=== PATIENT | female | born 1940 | race Caucasian/White ===

== ENCOUNTER 2017-06-04 14:02 | Inpatient (IN) | payer OTHER ==
[2017-06-04] MEDS: morphine 2 MG INJ IV (17:55)
[2017-06-04] MEDS: ONDANSETRON 4 MG INJ IV (17:55)
[2017-06-04 18:07] LABS: ADD MAN DIFF? NO
[2017-06-04 18:10] LABS: BASOPHILS % 0.2 % (0.0-2.0); HEMATOCRIT 36.9 % (37.0-47.0); HEMOGLOBIN 12.5 g/dl (12.0-16.0); LYMPHOCYTES # 1.1 10^3/ul (0.8-2.9); LYMPHOCYTES % 17.9 % (15.0-51.0); MEAN CORPUSCULAR HEMOGLOBIN 34.2 pg (29.0-33.0); MEAN CORPUSCULAR HGB CONC 33.9 g/dl (32.0-37.0); MEAN CORPUSCULAR VOLUME 100.8 fl (82.0-101.0); MONOCYTE # 0.3 10^3/ul (0.3-0.9); MONOCYTES % 5.6 % (0.0-11.0); NEUTROPHIL # 4.6 10^3/ul (1.6-7.5); NEUTROPHILS % 75.8 % (39.0-77.0); PLATELET COUNT 225 10^3/UL (140-415); RED BLOOD COUNT 3.66 10^6/ul (4.20-5.40); RED CELL DISTRIBUTION WIDTH 12.5 % (11.5-14.5)
[2017-06-04 18:38] LABS: ALANINE AMINOTRANSFERASE 17 IU/L (13-69); ALBUMIN/GLOBULIN RATIO 1.31; ALKALINE PHOSPHATASE 118 IU/L (42-121); ANION GAP 19 (8-16); ASPARTATE AMINO TRANSFERASE 19 IU/L (15-46); BLOOD UREA NITROGEN 31 mg/dl (7-20); CALCIUM 9.9 mg/dl (8.4-10.2); CARBON DIOXIDE 18 mmol/L (21-31); CHLORIDE 113 mmol/L (97-110); CREATININE 1.24 mg/dl (0.44-1.00); GLUCOSE 149 mg/dl (70-220); LIPASE 64 U/L (23-300); SODIUM 143 mmol/L (135-144); TOTAL PROTEIN 8.8 g/dl (6.1-8.1)
[2017-06-04 18:53] LABS: POTASSIUM 6.5 mmol/L (3.5-5.1)
[2017-06-04] MEDS: hydrALAzine 20 MG INJ IV ×2 (19:02→20:01)
[2017-06-04 19:13] LABS: URINE PH (Dip) POC 5.5 (5.0-8.5)
[2017-06-04 19:13] LABS: URINE BLOOD (Dip) POC Negative (NEGATIVE); URINE GLUCOSE (Dip) POC Negative (NEGATIVE); URINE KETONES (Dip) POC Negative (NEGATIVE); URINE LEUKOCYTE EST (Dip) POC Negative (NEGATIVE); URINE NITRITE (Dip) POC Negative (NEGATIVE); URINE TOTAL PROTEIN POC 3+ (NEGATIVE)
[2017-06-04] MEDS: ALBUTEROL 0.5% (NEB) 2.5 MG/0.5 ML AMP INH (19:50)
[2017-06-04] MEDS: NA POLYST SULFON 15 GM/60 ML BTL PO ×2 (20:14→23:00)
[2017-06-04] MEDS: INSULIN REGULAR, HUMAN 100 UNIT/1 ML 3ML VIAL IVP (20:21)
[2017-06-04] MEDS: DEXTROSE 50% 50 ML SYRINGE IV (20:32)
[2017-06-04 21:26] LABS: ANION GAP 18 (8-16); BLOOD UREA NITROGEN 28 mg/dl (7-20); CALCIUM 9.4 mg/dl (8.4-10.2); CARBON DIOXIDE 16 mmol/L (21-31); CHLORIDE 110 mmol/L (97-110); CREATININE 1.15 mg/dl (0.44-1.00); POTASSIUM 5.7 mmol/L (3.5-5.1); SODIUM 138 mmol/L (135-144)
[2017-06-04] MEDS: AMLODIPINE 10 MG TAB PO (21:28)
[2017-06-04] MEDS: NIFEdipine (XL) 30 MG TAB PO (21:28)
[2017-06-04 21:32] LABS: GLUCOSE 494 mg/dl (70-220)
[2017-06-04] MEDS ORDERED: ONDANSETRON 4 MG INJ IV (22:00)
[2017-06-04] MEDS ORDERED: BISACODYL (EC) 5 MG TAB PO (22:00)
[2017-06-04] MEDS ORDERED: NACL 0.9% 3 ML SYG IV (22:00)
[2017-06-04] MEDS: INSULIN REGULAR, HUMAN 100 UNIT/1 ML 3ML VIAL IV (22:00)
[2017-06-04] MEDS: GABAPENTIN 300 MG CAP PO (22:26)
[2017-06-04] MEDS: LABETALOL HCL 20MG INJ IV (22:26)
[2017-06-04] MEDS ORDERED: GLUCAGON 1 MG INJ IM (22:30)
[2017-06-04] MEDS ORDERED: DEXTROSE 50% 50 ML SYRINGE IV ×2 (22:30)
[2017-06-04] MEDS ORDERED: GLUCOSE GEL 15 GRAM TUBE PO ×2 (22:30)
[2017-06-04] MEDS ORDERED: GLUCOSE GEL 15 GRAM TUBE BUCCAL (22:30)
[2017-06-04] MEDS: SOD CHLORIDE 0.9% 500 ML IV (23:00)
[2017-06-05] MEDS: ACCU-CHEK XX (01:48)
[2017-06-05] MEDS: morphine 2 MG INJ IV (02:19)
[2017-06-05] MEDS: hydrALAzine 20 MG INJ IV ×2 (03:08→05:59)
[2017-06-05] MEDS: PANTOPRAZOLE (EC) 40 MG TAB PO (05:59)
[2017-06-05 06:55] LABS: ADD MAN DIFF? NO
[2017-06-05 07:01] LABS: BASOPHILS % 0.2 % (0.0-2.0); EOSINOPHILS % 0.4 % (0.0-7.0); HEMATOCRIT 32.6 % (37.0-47.0); LYMPHOCYTES # 1.3 10^3/ul (0.8-2.9); LYMPHOCYTES % 12.5 % (15.0-51.0); MEAN CORPUSCULAR HEMOGLOBIN 34.2 pg (29.0-33.0); MEAN CORPUSCULAR HGB CONC 33.7 g/dl (32.0-37.0); MEAN CORPUSCULAR VOLUME 101.2 fl (82.0-101.0); MONOCYTE # 0.9 10^3/ul (0.3-0.9); MONOCYTES % 9.2 % (0.0-11.0); NEUTROPHIL # 7.9 10^3/ul (1.6-7.5); NEUTROPHILS % 77.3 % (39.0-77.0); PLATELET COUNT 197 10^3/UL (140-415); RED BLOOD COUNT 3.22 10^6/ul (4.20-5.40); RED CELL DISTRIBUTION WIDTH 12.8 % (11.5-14.5)
[2017-06-05 07:01] LABS: WHITE BLOOD COUNT 10.2 10^3/ul (4.8-10.8)
[2017-06-05 07:17] LABS: ALANINE AMINOTRANSFERASE 16 IU/L (13-69); ALBUMIN 4.2 g/dl (3.3-4.9); ALBUMIN/GLOBULIN RATIO 1.27; ALKALINE PHOSPHATASE 96 IU/L (42-121); ANION GAP 18 (8-16); ASPARTATE AMINO TRANSFERASE 18 IU/L (15-46); BLOOD UREA NITROGEN 25 mg/dl (7-20); CALCIUM 9.1 mg/dl (8.4-10.2); CARBON DIOXIDE 17 mmol/L (21-31); CHLORIDE 116 mmol/L (97-110); CHOL/HDL RATIO 2.7 RATIO; CHOLESTEROL 176 mg/dl (100-200); CREATININE 1.16 mg/dl (0.44-1.00); GLUCOSE 117 mg/dl (70-220); HDL CHOLESTEROL 63 mg/dl (33-92); LDL CHOLESTEROL,CALCULATED 82 mg/dl; MAGNESIUM 1.6 mg/dl (1.7-2.5); POTASSIUM 4.6 mmol/L (3.5-5.1); SODIUM 146 mmol/L (135-144); TOTAL PROTEIN 7.5 g/dl (6.1-8.1); TRIGLYCERIDES 153 mg/dl (0-149)
[2017-06-05] MEDS: ACETAMINOPHEN 325 MG TAB PO (07:57)
[2017-06-05] MEDS: INSULIN ASPART [NOVOLOG] 3 ML PEN SC ×4 (08:00→20:23)
[2017-06-05] MEDS: GABAPENTIN 300 MG CAP PO ×2 (08:04→20:14)
[2017-06-05] MEDS: ESCITALOPRAM 10 MG TAB PO (08:14)
[2017-06-05] MEDS: AMLODIPINE 10 MG TAB PO (08:14)
[2017-06-05 08:40] LABS: HEMOGLOBIN A1C 5.1 % (0-5.9)
[2017-06-05 09:19] LABS: ETHANOL < 10.0 mg/dl
[2017-06-05] MEDS ORDERED: LABETALOL HCL 20MG INJ IV (09:30)
[2017-06-05] MEDS: MAGNESIUM SULFATE 2 GM/50 ML 50 ML IVPB (09:34)
[2017-06-05 11:30] LABS: URIC ACID 3.4 mg/dl (3.1-7.9)
[2017-06-05] MEDS: SERTRALINE 50 MG TAB PO (12:40)
[2017-06-05] MEDS: SOD CHLORIDE 0.45% 1,000 ML IV (12:41)
[2017-06-05] MEDS: HYDROCODONE/APAP (5/325) TAB PO ×2 (12:52→20:15)
[2017-06-05] MEDS: ATORVASTATIN 10 MG TAB PO (20:14)
[2017-06-06] MEDS: ACCU-CHEK XX (02:00)
[2017-06-06] MEDS: SOD CHLORIDE 0.45% 1,000 ML IV ×2 (03:34→11:54)
[2017-06-06] MEDS: PANTOPRAZOLE (EC) 40 MG TAB PO (06:23)
[2017-06-06] MEDS: HYDROCODONE/APAP (5/325) TAB PO ×5 (06:23→23:19)
[2017-06-06 06:55] LABS: ADD MAN DIFF? NO
[2017-06-06 07:00] LABS: BASOPHILS % 0.4 % (0.0-2.0); EOSINOPHILS # 0.1 10^3/ul (0.0-0.5); EOSINOPHILS % 2.1 % (0.0-7.0); HEMATOCRIT 30.3 % (37.0-47.0); HEMOGLOBIN 10.1 g/dl (12.0-16.0); LYMPHOCYTES # 1.8 10^3/ul (0.8-2.9); LYMPHOCYTES % 36.6 % (15.0-51.0); MEAN CORPUSCULAR HEMOGLOBIN 33.7 pg (29.0-33.0); MEAN CORPUSCULAR HGB CONC 33.3 g/dl (32.0-37.0); MEAN PLATELET VOLUME 9.3 fl (7.4-10.4); MONOCYTE # 0.5 10^3/ul (0.3-0.9); MONOCYTES % 9.9 % (0.0-11.0); NEUTROPHIL # 2.5 10^3/ul (1.6-7.5); NEUTROPHILS % 50.8 % (39.0-77.0); PLATELET COUNT 190 10^3/UL (140-415); RED CELL DISTRIBUTION WIDTH 12.8 % (11.5-14.5)
[2017-06-06 07:00] LABS: WHITE BLOOD COUNT 4.9 10^3/ul (4.8-10.8)
[2017-06-06 07:24] LABS: ALANINE AMINOTRANSFERASE 22 IU/L (13-69); ALBUMIN 3.4 g/dl (3.3-4.9); ALBUMIN/GLOBULIN RATIO 1.03; ALKALINE PHOSPHATASE 85 IU/L (42-121); ANION GAP 15 (8-16); ASPARTATE AMINO TRANSFERASE 16 IU/L (15-46); BILIRUBIN,INDIRECT 0.2 mg/dl (0-1.1); BILIRUBIN,TOTAL 0.2 mg/dl (0.2-1.3); BLOOD UREA NITROGEN 34 mg/dl (7-20); CALCIUM 8.6 mg/dl (8.4-10.2); CARBON DIOXIDE 19 mmol/L (21-31); CHLORIDE 113 mmol/L (97-110); CREATININE 1.53 mg/dl (0.44-1.00); GLUCOSE 100 mg/dl (70-220); MAGNESIUM 2.1 mg/dl (1.7-2.5); PHOSPHORUS 4.7 mg/dl (2.5-4.9); POTASSIUM 4.7 mmol/L (3.5-5.1); SODIUM 142 mmol/L (135-144); TOTAL PROTEIN 6.7 g/dl (6.1-8.1)
[2017-06-06] MEDS: INSULIN ASPART [NOVOLOG] 3 ML PEN SC ×4 (08:00→20:20)
[2017-06-06] MEDS: GABAPENTIN 300 MG CAP PO ×2 (08:20→20:17)
[2017-06-06] MEDS: ESCITALOPRAM 10 MG TAB PO (08:21)
[2017-06-06] MEDS: AMLODIPINE 10 MG TAB PO (08:21)
[2017-06-06] MEDS: ALLOPURINOL 100 MG TAB PO (08:21)
[2017-06-06] MEDS: SERTRALINE 50 MG TAB PO (08:21)
[2017-06-06 10:45] LABS: IRON 87 ug/dl (35-150)
[2017-06-06 10:55] LABS: % IRON SATURATION 44 % SAT (22-52); TOTAL IRON BINDING CAPACITY 200 ug/dl (241-421)
[2017-06-06 11:22] LABS: FERRITIN 97.2 ng/ml (11.1-264.0)
[2017-06-06] MEDS: DILTIAZEM (CD) 120 MG CAP PO (12:44)
[2017-06-06 15:08] LABS: PROTEIN/CREAT RATIO 2.41 RATIO
[2017-06-06 15:09] LABS: AMPHETAMINE/METHAMPHETAMINE Negative (NEGATIVE); BARBITURATES Negative (NEGATIVE); BENZODIAZEPINES Negative (NEGATIVE); CANNABINOIDS Negative (NEGATIVE); COCAINE Negative (NEGATIVE); OPIATES Positive (NEGATIVE)
[2017-06-06 18:12] LABS: PTH CALCIUM 8.9 mg/dL (8.6-10.4)
[2017-06-06] MEDS: ATORVASTATIN 10 MG TAB PO (20:17)
[2017-06-07] MEDS: ACCU-CHEK XX (02:00)
[2017-06-07] MEDS: HYDROCODONE/APAP (5/325) TAB PO ×3 (05:36→13:42)
[2017-06-07] MEDS: PANTOPRAZOLE (EC) 40 MG TAB PO (05:36)
[2017-06-07 06:52] LABS: PTH INTACT 109 pg/mL (14-64)
[2017-06-07 07:51] LABS: ADD MAN DIFF? NO
[2017-06-07 07:56] LABS: BASOPHILS % 0.4 % (0.0-2.0); EOSINOPHILS # 0.1 10^3/ul (0.0-0.5); EOSINOPHILS % 2.6 % (0.0-7.0); HEMATOCRIT 28.9 % (37.0-47.0); HEMOGLOBIN 9.6 g/dl (12.0-16.0); LYMPHOCYTES # 1.8 10^3/ul (0.8-2.9); LYMPHOCYTES % 33.3 % (15.0-51.0); MEAN CORPUSCULAR HEMOGLOBIN 33.8 pg (29.0-33.0); MEAN CORPUSCULAR HGB CONC 33.2 g/dl (32.0-37.0); MEAN CORPUSCULAR VOLUME 101.8 fl (82.0-101.0); MEAN PLATELET VOLUME 9.7 fl (7.4-10.4); MONOCYTE # 0.6 10^3/ul (0.3-0.9); MONOCYTES % 10.4 % (0.0-11.0); NEUTROPHIL # 2.8 10^3/ul (1.6-7.5); NEUTROPHILS % 52.9 % (39.0-77.0); PLATELET COUNT 192 10^3/UL (140-415); RED BLOOD COUNT 2.84 10^6/ul (4.20-5.40); RED CELL DISTRIBUTION WIDTH 12.6 % (11.5-14.5)
[2017-06-07 07:56] LABS: WHITE BLOOD COUNT 5.3 10^3/ul (4.8-10.8)
[2017-06-07] MEDS: INSULIN ASPART [NOVOLOG] 3 ML PEN SC ×4 (08:00→19:47)
[2017-06-07 08:18] LABS: ALANINE AMINOTRANSFERASE 30 IU/L (13-69); ALBUMIN 3.7 g/dl (3.3-4.9); ALBUMIN/GLOBULIN RATIO 1.27; ALKALINE PHOSPHATASE 91 IU/L (42-121); ANION GAP 14 (8-16); ASPARTATE AMINO TRANSFERASE 38 IU/L (15-46); BLOOD UREA NITROGEN 44 mg/dl (7-20); CALCIUM 8.9 mg/dl (8.4-10.2); CARBON DIOXIDE 20 mmol/L (21-31); CHLORIDE 114 mmol/L (97-110); GLUCOSE 115 mg/dl (70-220); POTASSIUM 5.4 mmol/L (3.5-5.1); SODIUM 143 mmol/L (135-144); TOTAL PROTEIN 6.6 g/dl (6.1-8.1)
[2017-06-07] MEDS: GABAPENTIN 300 MG CAP PO ×2 (09:32→19:41)
[2017-06-07] MEDS: DILTIAZEM (CD) 120 MG CAP PO (09:33)
[2017-06-07] MEDS: AMLODIPINE 10 MG TAB PO (09:33)
[2017-06-07] MEDS: ESCITALOPRAM 10 MG TAB PO (09:34)
[2017-06-07] MEDS: ALLOPURINOL 100 MG TAB PO (09:34)
[2017-06-07] MEDS: SERTRALINE 50 MG TAB PO (09:35)
[2017-06-07] MEDS: NA POLYST SULFON 15 GM/60 ML BTL PO (13:41)
[2017-06-07] MEDS: LIDOCAINE 5% PATCH TD (17:50)
[2017-06-07] MEDS: EPOETIN 10000 UNITS/1 ML INJ (ESRD) SC (17:52)
[2017-06-07] MEDS: ATORVASTATIN 10 MG TAB PO (19:41)
[2017-06-08] MEDS: hydrALAzine 20 MG INJ IV ×2 (00:26→04:45)
[2017-06-08] MEDS: ACCU-CHEK XX (00:29)
[2017-06-08] MEDS: PANTOPRAZOLE (EC) 40 MG TAB PO (04:46)
[2017-06-08 06:40] LABS: ADD MAN DIFF? NO
[2017-06-08 06:45] LABS: BASOPHILS % 0.3 % (0.0-2.0); EOSINOPHILS # 0.1 10^3/ul (0.0-0.5); EOSINOPHILS % 1.8 % (0.0-7.0); HEMATOCRIT 27.5 % (37.0-47.0); HEMOGLOBIN 9.4 g/dl (12.0-16.0); LYMPHOCYTES # 1.5 10^3/ul (0.8-2.9); LYMPHOCYTES % 25.5 % (15.0-51.0); MEAN CORPUSCULAR HEMOGLOBIN 34.3 pg (29.0-33.0); MEAN CORPUSCULAR HGB CONC 34.2 g/dl (32.0-37.0); MEAN CORPUSCULAR VOLUME 100.4 fl (82.0-101.0); MEAN PLATELET VOLUME 9.4 fl (7.4-10.4); MONOCYTE # 0.5 10^3/ul (0.3-0.9); MONOCYTES % 8.8 % (0.0-11.0); NEUTROPHIL # 3.8 10^3/ul (1.6-7.5); NEUTROPHILS % 63.3 % (39.0-77.0); PLATELET COUNT 191 10^3/UL (140-415); RED BLOOD COUNT 2.74 10^6/ul (4.20-5.40); RED CELL DISTRIBUTION WIDTH 12.5 % (11.5-14.5)
[2017-06-08 07:09] LABS: ALANINE AMINOTRANSFERASE 57 IU/L (13-69); ALBUMIN 3.5 g/dl (3.3-4.9); ALBUMIN/GLOBULIN RATIO 1.16; ALKALINE PHOSPHATASE 90 IU/L (42-121); ANION GAP 13 (8-16); ASPARTATE AMINO TRANSFERASE 62 IU/L (15-46); BLOOD UREA NITROGEN 39 mg/dl (7-20); CALCIUM 8.7 mg/dl (8.4-10.2); CARBON DIOXIDE 21 mmol/L (21-31); CHLORIDE 116 mmol/L (97-110); CREATININE 1.16 mg/dl (0.44-1.00); GLUCOSE 103 mg/dl (70-220); POTASSIUM 4.5 mmol/L (3.5-5.1); SODIUM 145 mmol/L (135-144); TOTAL PROTEIN 6.5 g/dl (6.1-8.1)
[2017-06-08] MEDS: INSULIN ASPART [NOVOLOG] 3 ML PEN SC ×4 (08:00→21:00)
[2017-06-08] MEDS: GABAPENTIN 300 MG CAP PO ×2 (08:52→20:26)
[2017-06-08] MEDS: AMLODIPINE 10 MG TAB PO (08:53)
[2017-06-08] MEDS: ALLOPURINOL 100 MG TAB PO (08:53)
[2017-06-08] MEDS: SERTRALINE 50 MG TAB PO (08:53)
[2017-06-08] MEDS: LIDOCAINE 5% PATCH TD (08:53)
[2017-06-08] MEDS: ESCITALOPRAM 10 MG TAB PO (08:53)
[2017-06-08] MEDS: DILTIAZEM (CD) 120 MG CAP PO (08:58)
[2017-06-08] MEDS: HYDROCODONE/APAP (5/325) TAB PO ×4 (12:49→23:40)
[2017-06-08] MEDS: ATORVASTATIN 10 MG TAB PO (20:27)
[2017-06-08] MEDS: DOCUSATE SODIUM 100 MG CAP PO (20:27)
[2017-06-09] MEDS: ACCU-CHEK XX (02:00)
[2017-06-09] MEDS: HYDROCODONE/APAP (5/325) TAB PO ×2 (04:40→15:37)
[2017-06-09 06:17] LABS: ADD MAN DIFF? NO
[2017-06-09 06:20] LABS: BASOPHILS % 0.5 % (0.0-2.0); EOSINOPHILS # 0.1 10^3/ul (0.0-0.5); EOSINOPHILS % 2.6 % (0.0-7.0); HEMATOCRIT 26.1 % (37.0-47.0); LYMPHOCYTES # 2.1 10^3/ul (0.8-2.9); LYMPHOCYTES % 38.7 % (15.0-51.0); MEAN CORPUSCULAR HEMOGLOBIN 34.7 pg (29.0-33.0); MEAN CORPUSCULAR HGB CONC 34.5 g/dl (32.0-37.0); MEAN CORPUSCULAR VOLUME 100.8 fl (82.0-101.0); MEAN PLATELET VOLUME 9.6 fl (7.4-10.4); MONOCYTE # 0.6 10^3/ul (0.3-0.9); MONOCYTES % 10.2 % (0.0-11.0); NEUTROPHIL # 2.6 10^3/ul (1.6-7.5); NEUTROPHILS % 47.6 % (39.0-77.0); PLATELET COUNT 203 10^3/UL (140-415); RED BLOOD COUNT 2.59 10^6/ul (4.20-5.40); RED CELL DISTRIBUTION WIDTH 12.6 % (11.5-14.5)
[2017-06-09 06:20] LABS: WHITE BLOOD COUNT 5.5 10^3/ul (4.8-10.8)
[2017-06-09] MEDS: PANTOPRAZOLE (EC) 40 MG TAB PO (06:27)
[2017-06-09 06:49] LABS: ALBUMIN 3.3 g/dl (3.3-4.9); ANION GAP 14 (8-16); BLOOD UREA NITROGEN 39 mg/dl (7-20); CALCIUM 8.8 mg/dl (8.4-10.2); CARBON DIOXIDE 20 mmol/L (21-31); CHLORIDE 115 mmol/L (97-110); CREATININE 1.23 mg/dl (0.44-1.00); GLUCOSE 103 mg/dl (70-220); MAGNESIUM 1.8 mg/dl (1.7-2.5); PHOSPHORUS 4.1 mg/dl (2.5-4.9); POTASSIUM 4.1 mmol/L (3.5-5.1); SODIUM 145 mmol/L (135-144)
[2017-06-09] MEDS: INSULIN ASPART [NOVOLOG] 3 ML PEN SC ×4 (08:00→21:00)
[2017-06-09] MEDS: ESCITALOPRAM 10 MG TAB PO (08:14)
[2017-06-09] MEDS: GABAPENTIN 300 MG CAP PO ×2 (08:15→21:06)
[2017-06-09] MEDS: ALLOPURINOL 100 MG TAB PO (08:15)
[2017-06-09] MEDS: DILTIAZEM (CD) 120 MG CAP PO (08:15)
[2017-06-09] MEDS: AMLODIPINE 10 MG TAB PO (08:15)
[2017-06-09] MEDS: LIDOCAINE 5% PATCH TD (08:17)
[2017-06-09] MEDS: EPOETIN 10000 UNITS/1 ML INJ (ESRD) SC (17:13)
[2017-06-09] MEDS: ATORVASTATIN 10 MG TAB PO (21:06)
[2017-06-10] MEDS: ACCU-CHEK XX (02:00)
[2017-06-10 05:42] LABS: ADD MAN DIFF? NO
[2017-06-10] MEDS: PANTOPRAZOLE (EC) 40 MG TAB PO (05:43)
[2017-06-10 05:46] LABS: BASOPHILS % 0.4 % (0.0-2.0); EOSINOPHILS # 0.2 10^3/ul (0.0-0.5); EOSINOPHILS % 3.1 % (0.0-7.0); HEMATOCRIT 25.4 % (37.0-47.0); HEMOGLOBIN 8.6 g/dl (12.0-16.0); LYMPHOCYTES % 40.3 % (15.0-51.0); MEAN CORPUSCULAR HEMOGLOBIN 33.9 pg (29.0-33.0); MEAN CORPUSCULAR HGB CONC 33.9 g/dl (32.0-37.0); MEAN PLATELET VOLUME 9.2 fl (7.4-10.4); MONOCYTE # 0.5 10^3/ul (0.3-0.9); MONOCYTES % 10.2 % (0.0-11.0); NEUTROPHIL # 2.2 10^3/ul (1.6-7.5); NEUTROPHILS % 45.4 % (39.0-77.0); PLATELET COUNT 205 10^3/UL (140-415); RED BLOOD COUNT 2.54 10^6/ul (4.20-5.40); RED CELL DISTRIBUTION WIDTH 12.7 % (11.5-14.5)
[2017-06-10 05:46] LABS: WHITE BLOOD COUNT 4.9 10^3/ul (4.8-10.8)
[2017-06-10 06:20] LABS: ALBUMIN 3.1 g/dl (3.3-4.9); ANION GAP 15 (8-16); BLOOD UREA NITROGEN 41 mg/dl (7-20); CALCIUM 8.9 mg/dl (8.4-10.2); CARBON DIOXIDE 19 mmol/L (21-31); CHLORIDE 115 mmol/L (97-110); CREATININE 1.27 mg/dl (0.44-1.00); GLUCOSE 105 mg/dl (70-220); MAGNESIUM 1.8 mg/dl (1.7-2.5); PHOSPHORUS 3.9 mg/dl (2.5-4.9); POTASSIUM 4.3 mmol/L (3.5-5.1); SODIUM 145 mmol/L (135-144)
[2017-06-10] MEDS: INSULIN ASPART [NOVOLOG] 3 ML PEN SC ×4 (08:00→20:34)
[2017-06-10] MEDS: GABAPENTIN 300 MG CAP PO ×2 (08:25→20:10)
[2017-06-10] MEDS: DILTIAZEM (CD) 120 MG CAP PO (08:26)
[2017-06-10] MEDS: AMLODIPINE 10 MG TAB PO (08:27)
[2017-06-10] MEDS: ESCITALOPRAM 10 MG TAB PO (08:27)
[2017-06-10] MEDS: ALLOPURINOL 100 MG TAB PO (08:27)
[2017-06-10] MEDS: LIDOCAINE 5% PATCH TD (08:29)
[2017-06-10] MEDS: HYDROCODONE/APAP (5/325) TAB PO (20:09)
[2017-06-10] MEDS: ATORVASTATIN 10 MG TAB PO (20:10)
[2017-06-11] MEDS: HYDROCODONE/APAP (5/325) TAB PO ×4 (00:38→22:12)
[2017-06-11] MEDS: ACCU-CHEK XX (02:34)
[2017-06-11] MEDS: PANTOPRAZOLE (EC) 40 MG TAB PO (05:17)
[2017-06-11] MEDS: INSULIN ASPART [NOVOLOG] 3 ML PEN SC ×4 (08:00→20:47)
[2017-06-11] MEDS: ESCITALOPRAM 10 MG TAB PO (08:40)
[2017-06-11] MEDS: ALLOPURINOL 100 MG TAB PO (08:40)
[2017-06-11] MEDS: GABAPENTIN 300 MG CAP PO ×2 (08:40→20:41)
[2017-06-11] MEDS: AMLODIPINE 10 MG TAB PO (08:41)
[2017-06-11] MEDS: LIDOCAINE 5% PATCH TD (08:42)
[2017-06-11 08:57] LABS: WHITE BLOOD COUNT 4.6 10^3/ul (4.8-10.8)
[2017-06-11 08:57] LABS: ADD MAN DIFF? NO; BASOPHILS % 0.4 % (0.0-2.0); EOSINOPHILS # 0.1 10^3/ul (0.0-0.5); EOSINOPHILS % 2.8 % (0.0-7.0); HEMATOCRIT 26.4 % (37.0-47.0); HEMOGLOBIN 9.1 g/dl (12.0-16.0); LYMPHOCYTES % 43.4 % (15.0-51.0); MEAN CORPUSCULAR HEMOGLOBIN 34.6 pg (29.0-33.0); MEAN CORPUSCULAR HGB CONC 34.5 g/dl (32.0-37.0); MEAN CORPUSCULAR VOLUME 100.4 fl (82.0-101.0); MEAN PLATELET VOLUME 9.4 fl (7.4-10.4); MONOCYTE # 0.5 10^3/ul (0.3-0.9); MONOCYTES % 11.1 % (0.0-11.0); NEUTROPHIL # 1.9 10^3/ul (1.6-7.5); NEUTROPHILS % 41.9 % (39.0-77.0); NUCLEATED RED BLOOD CELLS% 0.7 /100WBC (0.0-0.0); PLATELET COUNT 241 10^3/UL (140-415); RED BLOOD COUNT 2.63 10^6/ul (4.20-5.40)
[2017-06-11 09:33] LABS: ALBUMIN 3.3 g/dl (3.3-4.9); ANION GAP 15 (8-16); BLOOD UREA NITROGEN 43 mg/dl (7-20); CARBON DIOXIDE 20 mmol/L (21-31); CHLORIDE 114 mmol/L (97-110); CREATININE 1.35 mg/dl (0.44-1.00); GLUCOSE 102 mg/dl (70-220); MAGNESIUM 1.8 mg/dl (1.7-2.5); PHOSPHORUS 4.6 mg/dl (2.5-4.9); POTASSIUM 4.5 mmol/L (3.5-5.1); SODIUM 144 mmol/L (135-144)
[2017-06-11 15:28] LABS: INR 1.05; PROTIME 13.8 Sec (11.9-14.9); PT RATIO 1.1
[2017-06-11 15:29] LABS: PARTIAL THROMBOPLASTIN TIME 28.7 Sec (25.0-35.0)
[2017-06-11] MEDS: ATORVASTATIN 10 MG TAB PO (20:39)
[2017-06-11] MEDS: SENNA/DOCUSATE NA (8.6MG/50MG) TAB PO (20:41)
[2017-06-12] MEDS: ACCU-CHEK XX (02:00)
[2017-06-12] MEDS: HYDROCODONE/APAP (5/325) TAB PO ×2 (02:34→08:22)
[2017-06-12 06:21] LABS: URINE DRUG SCREEN RESULT DRUG(S) DETECTED:
[2017-06-12 07:09] LABS: ADD MAN DIFF? NO
[2017-06-12 07:22] LABS: WHITE BLOOD COUNT 5.9 10^3/ul (4.8-10.8)
[2017-06-12 07:22] LABS: BASOPHILS % 0.5 % (0.0-2.0); EOSINOPHILS # 0.1 10^3/ul (0.0-0.5); EOSINOPHILS % 1.9 % (0.0-7.0); HEMATOCRIT 27.3 % (37.0-47.0); HEMOGLOBIN 9.1 g/dl (12.0-16.0); LYMPHOCYTES # 1.5 10^3/ul (0.8-2.9); MEAN CORPUSCULAR HEMOGLOBIN 34.3 pg (29.0-33.0); MEAN CORPUSCULAR HGB CONC 33.3 g/dl (32.0-37.0); MEAN PLATELET VOLUME 9.1 fl (7.4-10.4); MONOCYTE # 0.5 10^3/ul (0.3-0.9); MONOCYTES % 8.9 % (0.0-11.0); NEUTROPHIL # 3.6 10^3/ul (1.6-7.5); NEUTROPHILS % 62.2 % (39.0-77.0); PLATELET COUNT 249 10^3/UL (140-415); RED BLOOD COUNT 2.65 10^6/ul (4.20-5.40); RED CELL DISTRIBUTION WIDTH 13.2 % (11.5-14.5)
[2017-06-12 07:43] LABS: ANION GAP 14 (8-16); BLOOD UREA NITROGEN 47 mg/dl (7-20); CARBON DIOXIDE 20 mmol/L (21-31); CHLORIDE 113 mmol/L (97-110); CREATININE 1.36 mg/dl (0.44-1.00); GLUCOSE 113 mg/dl (70-220); POTASSIUM 4.8 mmol/L (3.5-5.1); SODIUM 142 mmol/L (135-144)
[2017-06-12 07:49] LABS: INR 1.07; PT RATIO 1.1
[2017-06-12] MEDS: INSULIN ASPART [NOVOLOG] 3 ML PEN SC ×4 (08:00→20:25)
[2017-06-12] MEDS: DILTIAZEM (SR) 90 MG CAP PO (08:19)
[2017-06-12] MEDS: AMLODIPINE 10 MG TAB PO (08:21)
[2017-06-12] MEDS: ALLOPURINOL 100 MG TAB PO (08:21)
[2017-06-12] MEDS: ESCITALOPRAM 10 MG TAB PO (08:21)
[2017-06-12] MEDS: GABAPENTIN 300 MG CAP PO ×2 (08:21→20:23)
[2017-06-12] MEDS: FAMOTIDINE 20 MG TAB PO (08:22)
[2017-06-12] MEDS: LIDOCAINE 5% PATCH TD (08:23)
[2017-06-12] MEDS: EPOETIN 10000 UNITS/1 ML INJ (ESRD) SC (16:34)
[2017-06-12] MEDS: ATORVASTATIN 10 MG TAB PO (20:23)
[2017-06-12] MEDS: SENNA/DOCUSATE NA (8.6MG/50MG) TAB PO (20:24)
[2017-06-12 20:45] LABS: RENIN, PLASMA 0.89 ng/mL/h (0.25-5.82)
[2017-06-13] MEDS: ACCU-CHEK XX (02:00)
[2017-06-13] MEDS: INSULIN ASPART [NOVOLOG] 3 ML PEN SC ×4 (08:00→20:54)
[2017-06-13] MEDS: GABAPENTIN 300 MG CAP PO ×2 (08:14→20:53)
[2017-06-13] MEDS: ESCITALOPRAM 10 MG TAB PO (08:14)
[2017-06-13] MEDS: ALLOPURINOL 100 MG TAB PO (08:15)
[2017-06-13] MEDS: AMLODIPINE 10 MG TAB PO (08:15)
[2017-06-13] MEDS: DILTIAZEM (SR) 90 MG CAP PO (08:15)
[2017-06-13] MEDS: FAMOTIDINE 20 MG TAB PO (08:15)
[2017-06-13] MEDS: HYDROCODONE/APAP (5/325) TAB PO ×3 (08:30→23:02)
[2017-06-13] MEDS: LIDOCAINE 5% PATCH TD (08:30)
[2017-06-13 17:06] LABS: ALDOSTERONE 2 ng/dL
[2017-06-13] MEDS: ATORVASTATIN 10 MG TAB PO (20:53)
[2017-06-13] MEDS: SENNA/DOCUSATE NA (8.6MG/50MG) TAB PO (20:53)
[2017-06-14] MEDS: ACCU-CHEK XX (02:00)
[2017-06-14] MEDS: INSULIN ASPART [NOVOLOG] 3 ML PEN SC ×2 (07:47→11:27)
[2017-06-14] MEDS: HYDROCODONE/APAP (5/325) TAB PO ×2 (07:50→16:45)
[2017-06-14] MEDS: FAMOTIDINE 20 MG TAB PO (08:27)
[2017-06-14] MEDS: GABAPENTIN 300 MG CAP PO (08:27)
[2017-06-14] MEDS: ALLOPURINOL 100 MG TAB PO (08:27)
[2017-06-14] MEDS: ESCITALOPRAM 10 MG TAB PO (08:27)
[2017-06-14] MEDS: AMLODIPINE 10 MG TAB PO (08:27)
[2017-06-14] MEDS: LIDOCAINE 5% PATCH TD (08:27)
[2017-06-14] MEDS: DILTIAZEM (SR) 90 MG CAP PO (08:28)
[2017-06-14] MEDS: EPOETIN 10000 UNITS/1 ML INJ (ESRD) SC (16:28)
== END 2017-06-14 19:21 | DRG 305 ==
LOC: MS4 20:17 → E/R 14:02 → MS4 06-05 04:55
DX: I16.0 Hypertensive urgency (principal); S22.41XA Multiple fractures of ribs, right side, initial encounter for closed fracture; S32.049A Unspecified fracture of fourth lumbar vertebra, initial encounter for closed fracture; N17.9 Acute kidney failure, unspecified; E87.5 Hyperkalemia; I12.9 Hypertensive chronic kidney disease with stage 1 through stage 4 chronic kidney disease, or unspecified chronic kidney disease; E11.22 Type 2 diabetes mellitus with diabetic chronic kidney disease; N18.9 Chronic kidney disease, unspecified; E11.42 Type 2 diabetes mellitus with diabetic polyneuropathy; E11.319 Type 2 diabetes mellitus with unspecified diabetic retinopathy without macular edema; F32.9 Major depressive disorder, single episode, unspecified; E78.5 Hyperlipidemia, unspecified; W19.XXXA Unspecified fall, initial encounter; E89.0 Postprocedural hypothyroidism; R26.89 Other abnormalities of gait and mobility; E11.21 Type 2 diabetes mellitus with diabetic nephropathy; M48.07 Spinal stenosis, lumbosacral region; M43.17 Spondylolisthesis, lumbosacral region; K57.90 Diverticulosis of intestine, part unspecified, without perforation or abscess without bleeding; M54.16 Radiculopathy, lumbar region; S30.0XXA Contusion of lower back and pelvis, initial encounter
CPT/HCPCS: 36415; 70450; 71045; 71100; 72146; 72148; 74176; 76775; 80048; 80053; 80061; 80069; 80306; 80307; 81003; 82088; 82306; 82570; 82728; 82962; 83036; 83540; 83690; 83735; 83970; 84100; 84244; 84443; 84560; 85025; 85610; 85730; 93005; 94664; 96361; 96374; 96375; 96376; 97110; 97116; 97163; 97530; 99291-25

== ENCOUNTER 2017-07-21 18:12 | Inpatient (IN) | payer OTHER ==
[2017-07-21] MEDS: ONDANSETRON 4 MG INJ IV ×2 (19:46→21:44)
[2017-07-21] MEDS: SOD CHLORIDE 0.9% 500 ML IV (19:47)
[2017-07-21] MEDS: morphine 4 MG/ML VIAL IV ×2 (19:47→21:45)
[2017-07-21 19:54] LABS: ABNORMAL IP MESSAGE 1; HEMATOCRIT 31.1 % (37.0-47.0); HEMOGLOBIN 9.9 g/dl (12.0-16.0); MEAN CORPUSCULAR HEMOGLOBIN 34.1 pg (29.0-33.0); MEAN CORPUSCULAR HGB CONC 31.8 g/dl (32.0-37.0); MEAN CORPUSCULAR VOLUME 107.2 fl (82.0-101.0); MEAN PLATELET VOLUME 10.3 fl (7.4-10.4); PLATELET COUNT 210 10^3/UL (140-415); RED CELL DISTRIBUTION WIDTH 15.3 % (11.5-14.5)
[2017-07-21 19:54] LABS: WHITE BLOOD COUNT 13.9 10^3/ul (4.8-10.8)
[2017-07-21 19:55] LABS: ADD MAN DIFF? YES; POSITIVE DIFF @See below
[2017-07-21 20:16] LABS: ANISOCYTOSIS 1+ (0-0); BAND NEUTROPHILS #M 0.4 10^3/ul (0.0-0.6); BAND NEUTROPHILS % (M) 3 % (0-4); LYMPHOCYTES #M 0.2 10^3/ul (0.8-2.9); LYMPHOCYTES % (M) 2 % (15-51); MONOCYTE #M 0.2 10^3/ul (0.3-0.9); MONOCYTES % (M) 2 % (0-11); PLATELET ESTIMATE NORMAL; SEGMENTED NEUTROPHILS (M) % 93 % (39-77); SMUDGE%M 5 % (0-0)
[2017-07-21 20:17] LABS: INR 1.13; PROTIME 14.7 Sec (11.9-14.9); PT RATIO 1.1
[2017-07-21 20:18] LABS: PARTIAL THROMBOPLASTIN TIME 25.7 Sec (25.0-35.0)
[2017-07-21 20:19] LABS: ALANINE AMINOTRANSFERASE 34 IU/L (13-69); ALBUMIN 3.9 g/dl (3.3-4.9); ALBUMIN/GLOBULIN RATIO 1.18; ALKALINE PHOSPHATASE 80 IU/L (42-121); ANION GAP 18 (8-16); ASPARTATE AMINO TRANSFERASE 44 IU/L (15-46); BILIRUBIN,INDIRECT 0.3 mg/dl (0-1.1); BILIRUBIN,TOTAL 0.3 mg/dl (0.2-1.3); BLOOD UREA NITROGEN 39 mg/dl (7-20); CALCIUM 8.6 mg/dl (8.4-10.2); CARBON DIOXIDE 18 mmol/L (21-31); CHLORIDE 114 mmol/L (97-110); CREATININE 1.52 mg/dl (0.44-1.00); GLUCOSE 182 mg/dl (70-220); LIPASE 72 U/L (23-300); SODIUM 144 mmol/L (135-144); TOTAL PROTEIN 7.2 g/dl (6.1-8.1)
[2017-07-21 20:27] LABS: POTASSIUM 6.2 mmol/L (3.5-5.1)
[2017-07-21 20:29] LABS: D-DIMER 1183.83 ng/ml (<460)
[2017-07-21 20:33] LABS: TROPONIN-I 0.173 ng/ml (0.000-0.120)
[2017-07-21] MEDS: SOD CHLORIDE 0.9% 1,000 ML IV (21:40)
[2017-07-21] MEDS: SOD CHLORIDE 0.9% 100 ML (22:08)
[2017-07-21] MEDS: IODIXANOL LOCM 100 ML BTL (22:08)
[2017-07-21 22:28] LABS: ANION GAP 12 (8-16); BLOOD UREA NITROGEN 41 mg/dl (7-20); CALCIUM 7.6 mg/dl (8.4-10.2); CARBON DIOXIDE 19 mmol/L (21-31); CHLORIDE 116 mmol/L (97-110); CREATININE 1.43 mg/dl (0.44-1.00); GLUCOSE 162 mg/dl (70-220); SODIUM 140 mmol/L (135-144)
[2017-07-21 22:36] LABS: POTASSIUM 6.7 mmol/L (3.5-5.1)
[2017-07-21] MEDS: ASPIRIN 81 MG TAB PO (22:39)
[2017-07-21] MEDS ORDERED: NACL 0.9% 3 ML SYG IV (23:30)
[2017-07-21] MEDS ORDERED: DEXTROSE 50% 50 ML SYRINGE IV (23:30)
[2017-07-21] MEDS ORDERED: ACETAMINOPHEN 325 MG TAB PO ×2 (23:30)
[2017-07-21] MEDS ORDERED: ONDANSETRON 4 MG INJ IV (23:30)
[2017-07-21] MEDS ORDERED: NITROGLYCERIN (SL) 0.4 MG TAB SL (23:30)
[2017-07-22] MEDS: DEXTROSE 50% 50 ML SYRINGE IV
[2017-07-22] MEDS: NA POLYST SULFON 15 GM/60 ML BTL PR (00:01)
[2017-07-22] MEDS: SOD CHLORIDE 0.9% 1,000 ML IV (00:01)
[2017-07-22] MEDS: INSULIN REGULAR, HUMAN 100 UNIT/1 ML 3ML VIAL IVP (00:04)
[2017-07-22] MEDS: CALCIUM GLUCONATE 10% 1 GM in DEXTROSE 5% 100 ML IVPB (00:30)
[2017-07-22 01:06] LABS: CREATINE KINASE 35 IU/L (23-200)
[2017-07-22 01:19] LABS: CK INDEX 2.6
[2017-07-22 01:21] LABS: TROPONIN-I 0.252 ng/ml (0.000-0.120)
[2017-07-22 02:25] LABS: ADD MAN DIFF? NO
[2017-07-22 02:31] LABS: ABNORMAL IP MESSAGE 1; HEMATOCRIT 25.6 % (37.0-47.0); LYMPHOCYTES # 0.3 10^3/ul (0.8-2.9); LYMPHOCYTES % 4.5 % (15.0-51.0); MEAN CORPUSCULAR HEMOGLOBIN 34.5 pg (29.0-33.0); MEAN CORPUSCULAR HGB CONC 31.3 g/dl (32.0-37.0); MEAN CORPUSCULAR VOLUME 110.3 fl (82.0-101.0); MEAN PLATELET VOLUME 10.5 fl (7.4-10.4); MONOCYTE # 0.3 10^3/ul (0.3-0.9); MONOCYTES % 4.8 % (0.0-11.0); NEUTROPHIL # 5.5 10^3/ul (1.6-7.5); NEUTROPHILS % 90.4 % (39.0-77.0); PLATELET COUNT 156 10^3/UL (140-415); RED BLOOD COUNT 2.32 10^6/ul (4.20-5.40); RED CELL DISTRIBUTION WIDTH 15.5 % (11.5-14.5)
[2017-07-22 02:35] LABS: POSITIVE DIFF @See below
[2017-07-22] MEDS: HEPARIN 1000 UNITS/ML 10 ML INJ IV ×2 (02:40→02:53)
[2017-07-22] MEDS: HEPARIN 25000 UNITS/250 ML 250 ML IV (02:47)
[2017-07-22 02:58] LABS: ALANINE AMINOTRANSFERASE 25 IU/L (13-69); ALBUMIN 2.9 g/dl (3.3-4.9); ALKALINE PHOSPHATASE 56 IU/L (42-121); ANION GAP 17 (8-16); ASPARTATE AMINO TRANSFERASE 26 IU/L (15-46); BILIRUBIN,INDIRECT 0.3 mg/dl (0-1.1); BILIRUBIN,TOTAL 0.3 mg/dl (0.2-1.3); BLOOD UREA NITROGEN 44 mg/dl (7-20); CALCIUM 7.9 mg/dl (8.4-10.2); CARBON DIOXIDE 15 mmol/L (21-31); CHLORIDE 115 mmol/L (97-110); GLUCOSE 86 mg/dl (70-220); POTASSIUM 5.4 mmol/L (3.5-5.1); SODIUM 142 mmol/L (135-144); TOTAL PROTEIN 5.8 g/dl (6.1-8.1)
[2017-07-22 03:07] LABS: INR 1.34; PARTIAL THROMBOPLASTIN TIME 27.1 Sec (25.0-35.0); PROTIME 16.8 Sec (11.9-14.9); PT RATIO 1.3
[2017-07-22] MEDS: PANTOPRAZOLE (EC) 40 MG TAB PO (05:17)
[2017-07-22] MEDS: MECLIZINE 12.5 MG TAB PO ×2 (05:58→06:00)
[2017-07-22] MEDS ORDERED: GLUCAGON 1 MG INJ IM (06:30)
[2017-07-22] MEDS ORDERED: GLUCOSE GEL 15 GRAM TUBE BUCCAL (06:30)
[2017-07-22] MEDS ORDERED: GLUCOSE GEL 15 GRAM TUBE PO ×2 (06:30)
[2017-07-22] MEDS ORDERED: DEXTROSE 50% 50 ML SYRINGE IV ×2 (06:30)
[2017-07-22 07:31] LABS: WHITE BLOOD COUNT 6.8 10^3/ul (4.8-10.8)
[2017-07-22 07:31] LABS: HEMATOCRIT 28.2 % (37.0-47.0); HEMOGLOBIN 8.4 g/dl (12.0-16.0); MEAN CORPUSCULAR HEMOGLOBIN 33.6 pg (29.0-33.0); MEAN CORPUSCULAR HGB CONC 29.8 g/dl (32.0-37.0); MEAN CORPUSCULAR VOLUME 112.8 fl (82.0-101.0); MEAN PLATELET VOLUME 10.4 fl (7.4-10.4); PLATELET COUNT 161 10^3/UL (140-415); RED CELL DISTRIBUTION WIDTH 15.6 % (11.5-14.5)
[2017-07-22 07:49] LABS: POSITIVE DIFF @See below
[2017-07-22 07:50] LABS: ADD MAN DIFF? YES
[2017-07-22] MEDS: morphine 2 MG INJ IV ×2 (07:54→13:26)
[2017-07-22 07:56] LABS: CREATINE KINASE 39 IU/L (23-200)
[2017-07-22 08:09] LABS: CK INDEX 2.7; CK-MB 1.07 ng/ml (0.0-2.4)
[2017-07-22 08:12] LABS: TROPONIN-I 0.309 ng/ml (0.000-0.120)
[2017-07-22] MEDS ORDERED: DILTIAZEM (SR) 90 MG CAP PO (09:00)
[2017-07-22] MEDS: INSULIN ASPART [NOVOLOG] 3 ML PEN SC ×6 (09:00→21:00)
[2017-07-22] MEDS: ASPIRIN 81 MG TAB PO (09:06)
[2017-07-22] MEDS: ESCITALOPRAM 10 MG TAB PO (09:06)
[2017-07-22 09:44] LABS: PARTIAL THROMBOPLASTIN TIME 138.5 Sec (25.0-35.0)
[2017-07-22 10:56] LABS: ALBUMIN/GLOBULIN RATIO 1.04
[2017-07-22 11:02] LABS: ALANINE AMINOTRANSFERASE 41 IU/L (13-69); ALBUMIN 2.6 g/dl (3.3-4.9); ALKALINE PHOSPHATASE 52 IU/L (42-121); ANION GAP 18 (8-16); ASPARTATE AMINO TRANSFERASE 44 IU/L (15-46); BILIRUBIN,INDIRECT 0.1 mg/dl (0-1.1); BILIRUBIN,TOTAL 0.1 mg/dl (0.2-1.3); BLOOD UREA NITROGEN 49 mg/dl (7-20); CALCIUM 7.9 mg/dl (8.4-10.2); CARBON DIOXIDE 16 mmol/L (21-31); CHLORIDE 113 mmol/L (97-110); CREATININE 2.06 mg/dl (0.44-1.00); GLUCOSE 132 mg/dl (70-220); SODIUM 139 mmol/L (135-144); TOTAL PROTEIN 5.1 g/dl (6.1-8.1)
[2017-07-22 11:06] LABS: ANISOCYTOSIS 1+ (0-0); BAND NEUTROPHILS #M 0.6 10^3/ul (0.0-0.6); BAND NEUTROPHILS % (M) 9 % (0-4); BURR CELLS 1+ (0-0); LYMPHOCYTES #M 0.8 10^3/ul (0.8-2.9); LYMPHOCYTES % (M) 13 % (15-51); MONOCYTE #M 0.5 10^3/ul (0.3-0.9); MONOCYTES % (M) 8 % (0-11); OVALOCYTES 1+ (0-0); PLATELET ESTIMATE NORMAL; POIKILOCYTOSIS 1+ (0-0); POLYCHROMASIA 1+ (0-0); SEG NEUT #M 4.8 10^3/ul (1.6-7.5); SEGMENTED NEUTROPHILS (M) % 70 % (39-77)
[2017-07-22 11:10] LABS: POTASSIUM 7.9 mmol/L (3.5-5.1)
[2017-07-22 11:16] LABS: Allen Test ACCEPTAB; Arterial Base Excess -12.1 mmol/L (-3.0-3); Arterial Blood Gas Oxygen Sat 98.1 mmHG (95.0-100.0); Arterial COHb 0.3 % (0.0-3.0); Arterial Fraction of Oxyhgb 97.6 % (93.0-99.0); Arterial HCO3 13.2 mmol/L (22.0-26.0); Arterial MetHb 0.2 % (0.0-1.5); Arterial pCO2 27.7 mmhg (35-45); MODE NASAL CANNULA; Site Left Radial
[2017-07-22] MEDS: NA BICARBONATE 8.4% 50 ML SYG IV ×2 (11:28→13:27)
[2017-07-22] MEDS: SODIUM BICARBONATE (IV ADD) 140 MEQ in DEXTROSE 5% 1,000 ML IV (11:56)
[2017-07-22] MEDS: FUROSEMIDE 40 MG INJ IV (11:56)
[2017-07-22 12:05] LABS: ADD MAN DIFF? NO
[2017-07-22 12:20] LABS: WHITE BLOOD COUNT 5.7 10^3/ul (4.8-10.8)
[2017-07-22 12:20] LABS: BASOPHILS % 0.2 % (0.0-2.0); HEMATOCRIT 25.6 % (37.0-47.0); HEMOGLOBIN 7.9 g/dl (12.0-16.0); LYMPHOCYTES # 0.8 10^3/ul (0.8-2.9); LYMPHOCYTES % 13.6 % (15.0-51.0); MEAN CORPUSCULAR HEMOGLOBIN 34.2 pg (29.0-33.0); MEAN CORPUSCULAR HGB CONC 30.9 g/dl (32.0-37.0); MEAN CORPUSCULAR VOLUME 110.8 fl (82.0-101.0); MEAN PLATELET VOLUME 10.6 fl (7.4-10.4); MONOCYTE # 0.4 10^3/ul (0.3-0.9); MONOCYTES % 6.1 % (0.0-11.0); NEUTROPHIL # 4.6 10^3/ul (1.6-7.5); NEUTROPHILS % 79.8 % (39.0-77.0); PLATELET COUNT 154 10^3/UL (140-415); RED BLOOD COUNT 2.31 10^6/ul (4.20-5.40); RED CELL DISTRIBUTION WIDTH 15.3 % (11.5-14.5)
[2017-07-22] MEDS ORDERED: morphine LIQ (10 MG/5 ML) CUP PO (12:30)
[2017-07-22 12:31] LABS: LACTIC ACID 1.7 mmol/L (0.5-2.0)
[2017-07-22 12:33] LABS: CREATINE KINASE 40 IU/L (23-200)
[2017-07-22 12:34] LABS: FOLATE 11.3 ng/ml (2.8-20.0)
[2017-07-22 12:35] LABS: ANION GAP 15 (8-16); BLOOD UREA NITROGEN 52 mg/dl (7-20); CARBON DIOXIDE 20 mmol/L (21-31); CHLORIDE 109 mmol/L (97-110); CREATININE 2.22 mg/dl (0.44-1.00); GLUCOSE 111 mg/dl (70-220); MAGNESIUM 1.7 mg/dl (1.7-2.5); SODIUM 137 mmol/L (135-144)
[2017-07-22 12:36] LABS: CALCIUM 7.4 mg/dl (8.4-10.2)
[2017-07-22 12:38] LABS: POTASSIUM 7.2 mmol/L (3.5-5.1)
[2017-07-22 12:44] LABS: CK INDEX 2.6; CK-MB 1.03 ng/ml (0.0-2.4)
[2017-07-22 12:47] LABS: TROPONIN-I 0.247 ng/ml (0.000-0.120)
[2017-07-22] MEDS: NA POLYST SULFON 15 GM/60 ML BTL PO (13:26)
[2017-07-22 14:07] LABS: B-TYPE NATRIURETIC PEPTIDE 135000 PG/ML (0-450)
[2017-07-22 14:34] LABS: LACTIC ACID 2.3 mmol/L (0.5-2.0)
[2017-07-22 15:19] LABS: PHOSPHORUS 6.8 mg/dl (2.5-4.9)
[2017-07-22] MEDS ORDERED: HEPARIN 1000 UNITS/ML 10 ML INJ (15:45)
[2017-07-22] MEDS: HEPARIN 1000 UNITS/ML 10 ML INJ CATHETER (17:02)
[2017-07-22 17:04] LABS: ADD MAN DIFF? NO
[2017-07-22 17:05] LABS: BASOPHILS % 0.1 % (0.0-2.0); HEMATOCRIT 25.5 % (37.0-47.0); HEMOGLOBIN 7.8 g/dl (12.0-16.0); LYMPHOCYTES # 0.6 10^3/ul (0.8-2.9); LYMPHOCYTES % 8.9 % (15.0-51.0); MEAN CORPUSCULAR HEMOGLOBIN 33.5 pg (29.0-33.0); MEAN CORPUSCULAR HGB CONC 30.6 g/dl (32.0-37.0); MEAN CORPUSCULAR VOLUME 109.4 fl (82.0-101.0); MEAN PLATELET VOLUME 10.1 fl (7.4-10.4); MONOCYTE # 0.3 10^3/ul (0.3-0.9); MONOCYTES % 4.8 % (0.0-11.0); NEUTROPHIL # 5.9 10^3/ul (1.6-7.5); NEUTROPHILS % 85.6 % (39.0-77.0); PLATELET COUNT 141 10^3/UL (140-415); RED BLOOD COUNT 2.33 10^6/ul (4.20-5.40); RED CELL DISTRIBUTION WIDTH 15.3 % (11.5-14.5)
[2017-07-22 17:05] LABS: WHITE BLOOD COUNT 6.9 10^3/ul (4.8-10.8)
[2017-07-22 17:26] LABS: ANION GAP 16 (8-16); BLOOD UREA NITROGEN 53 mg/dl (7-20); CALCIUM 7.7 mg/dl (8.4-10.2); CARBON DIOXIDE 23 mmol/L (21-31); CHLORIDE 110 mmol/L (97-110); CREATININE 2.37 mg/dl (0.44-1.00); GLUCOSE 134 mg/dl (70-220); SODIUM 143 mmol/L (135-144)
[2017-07-22 17:28] LABS: POTASSIUM 5.7 mmol/L (3.5-5.1)
[2017-07-22 17:35] LABS: SODIUM,URINE RANDOM 131 mmol/L (30-90)
[2017-07-22 17:39] LABS: CREATININE,URINE RANDOM 20.85 mg/dl (20-320); PROTEIN/CREAT RATIO 3.02 RATIO
[2017-07-22 17:46] LABS: ADD UMIC YES; UR ASCORBIC ACID NEGATIVE (NEGATIVE); UR BILIRUBIN (Dip) NEGATIVE (NEGATIVE); UR BLOOD (Dip) 1+ mg/dL (NEGATIVE); UR CLARITY CLEAR (CLEAR); UR COLOR STRAW (YELLOW); UR GLUCOSE (Dip) NEGATIVE (NEGATIVE); UR KETONES (Dip) NEGATIVE (NEGATIVE); UR LEUKOCYTE ESTERASE (Dip) 1+ Leu/ul (NEGATIVE); UR NITRITE (Dip) NEGATIVE (NEGATIVE); UR RBC 4 /HPF (0-5); UR SPECIFIC GRAVITY (Dip) 1.013 (1.003-1.030); UR TOTAL PROTEIN (Dip) 1+ mg/dl (NEGATIVE); UR UROBILINOGEN (Dip) NEGATIVE (NEGATIVE); UR WBC 25 /HPF (0-5)
[2017-07-22] MEDS: ACCU-CHEK XX (23:15)
[2017-07-23] MEDS: SODIUM BICARBONATE (IV ADD) 140 MEQ in DEXTROSE 5% 1,000 ML IV ×2 (01:15→02:15)
[2017-07-23] MEDS ORDERED: ACCU-CHEK XX (02:00)
[2017-07-23 05:34] LABS: ADD MAN DIFF? NO
[2017-07-23 05:37] LABS: BASOPHILS % 0.1 % (0.0-2.0); EOSINOPHILS # 0.1 10^3/ul (0.0-0.5); EOSINOPHILS % 0.7 % (0.0-7.0); HEMATOCRIT 23.1 % (37.0-47.0); HEMOGLOBIN 7.5 g/dl (12.0-16.0); LYMPHOCYTES # 0.6 10^3/ul (0.8-2.9); LYMPHOCYTES % 8.4 % (15.0-51.0); MEAN CORPUSCULAR HEMOGLOBIN 33.8 pg (29.0-33.0); MEAN CORPUSCULAR HGB CONC 32.5 g/dl (32.0-37.0); MEAN CORPUSCULAR VOLUME 104.1 fl (82.0-101.0); MEAN PLATELET VOLUME 10.8 fl (7.4-10.4); MONOCYTE # 0.5 10^3/ul (0.3-0.9); MONOCYTES % 6.4 % (0.0-11.0); NEUTROPHIL # 6.3 10^3/ul (1.6-7.5); PLATELET COUNT 128 10^3/UL (140-415); RED BLOOD COUNT 2.22 10^6/ul (4.20-5.40); RED CELL DISTRIBUTION WIDTH 14.8 % (11.5-14.5)
[2017-07-23 05:37] LABS: WHITE BLOOD COUNT 7.5 10^3/ul (4.8-10.8)
[2017-07-23 06:06] LABS: IRON 21 ug/dl (35-150)
[2017-07-23 06:09] LABS: ANION GAP 10 (8-16); BLOOD UREA NITROGEN 20 mg/dl (7-20); CALCIUM 7.6 mg/dl (8.4-10.2); CARBON DIOXIDE 31 mmol/L (21-31); CHLORIDE 100 mmol/L (97-110); CREATININE 1.26 mg/dl (0.44-1.00); GLUCOSE 83 mg/dl (70-220); MAGNESIUM 1.6 mg/dl (1.7-2.5); PHOSPHORUS 3.8 mg/dl (2.5-4.9); POTASSIUM 4.1 mmol/L (3.5-5.1); SODIUM 137 mmol/L (135-144)
[2017-07-23] MEDS: PANTOPRAZOLE (EC) 40 MG TAB PO (06:11)
[2017-07-23 06:16] LABS: % IRON SATURATION 8 % SAT (22-52); TOTAL IRON BINDING CAPACITY 253 ug/dl (241-421)
[2017-07-23] MEDS: INSULIN ASPART [NOVOLOG] 3 ML PEN SC ×4 (07:05→21:00)
[2017-07-23] MEDS: ASPIRIN 81 MG TAB PO (09:10)
[2017-07-23] MEDS: POTASSIUM CHLORIDE (SR) 10 MEQ TAB PO (09:10)
[2017-07-23] MEDS: ESCITALOPRAM 10 MG TAB PO (09:10)
[2017-07-23] MEDS: MAGNESIUM SULFATE 3 GM in DEXTROSE 5% 100 ML IVPB (09:39)
[2017-07-23] MEDS: ONDANSETRON 4 MG INJ IV (10:16)
[2017-07-23] MEDS: BUMETANIDE 12 MG in DEXTROSE 5% 72 ML IV (10:51)
[2017-07-23] MEDS: EPOETIN 10000 UNITS/1 ML INJ (ESRD) SC (17:07)
[2017-07-23] MEDS: SOD FERRIC GLUC COMPLX 125 MG in SOD CHLORIDE 0.9% 100 ML IVPB (20:05)
[2017-07-24] MEDS: ACCU-CHEK XX (02:00)
[2017-07-24] MEDS: PANTOPRAZOLE (EC) 40 MG TAB PO (05:34)
[2017-07-24 05:50] LABS: ADD MAN DIFF? NO
[2017-07-24 05:53] LABS: BASOPHILS % 0.1 % (0.0-2.0); EOSINOPHILS # 0.1 10^3/ul (0.0-0.5); EOSINOPHILS % 0.7 % (0.0-7.0); HEMATOCRIT 23.7 % (37.0-47.0); HEMOGLOBIN 7.6 g/dl (12.0-16.0); LYMPHOCYTES % 13.9 % (15.0-51.0); MEAN CORPUSCULAR HEMOGLOBIN 33.9 pg (29.0-33.0); MEAN CORPUSCULAR HGB CONC 32.1 g/dl (32.0-37.0); MEAN CORPUSCULAR VOLUME 105.8 fl (82.0-101.0); MEAN PLATELET VOLUME 11.1 fl (7.4-10.4); MONOCYTE # 0.4 10^3/ul (0.3-0.9); MONOCYTES % 5.9 % (0.0-11.0); NEUTROPHIL # 5.5 10^3/ul (1.6-7.5); NEUTROPHILS % 79.1 % (39.0-77.0); PLATELET COUNT 125 10^3/UL (140-415); RED BLOOD COUNT 2.24 10^6/ul (4.20-5.40); RED CELL DISTRIBUTION WIDTH 14.6 % (11.5-14.5)
[2017-07-24 05:53] LABS: WHITE BLOOD COUNT 6.9 10^3/ul (4.8-10.8)
[2017-07-24 06:18] LABS: ANION GAP 11 (8-16); BLOOD UREA NITROGEN 30 mg/dl (7-20); CALCIUM 7.6 mg/dl (8.4-10.2); CARBON DIOXIDE 33 mmol/L (21-31); CHLORIDE 98 mmol/L (97-110); CREATININE 1.66 mg/dl (0.44-1.00); GLUCOSE 77 mg/dl (70-220); MAGNESIUM 2.1 mg/dl (1.7-2.5); PHOSPHORUS 4.1 mg/dl (2.5-4.9); POTASSIUM 4.2 mmol/L (3.5-5.1); SODIUM 138 mmol/L (135-144)
[2017-07-24] MEDS: INSULIN ASPART [NOVOLOG] 3 ML PEN SC ×4 (07:05→21:00)
[2017-07-24] MEDS: ESCITALOPRAM 10 MG TAB PO (08:51)
[2017-07-24] MEDS: ASPIRIN 81 MG TAB PO (08:51)
[2017-07-24] MEDS: HYDROCODONE/APAP (10/325) TAB NGT (08:51)
[2017-07-24 09:43] LABS: ALANINE AMINOTRANSFERASE 64 IU/L (13-69); ALBUMIN 2.5 g/dl (3.3-4.9); ALKALINE PHOSPHATASE 62 IU/L (42-121); AMYLASE 44 U/L (11-123); ASPARTATE AMINO TRANSFERASE 59 IU/L (15-46); BILIRUBIN,INDIRECT 0.2 mg/dl (0-1.1); BILIRUBIN,TOTAL 0.2 mg/dl (0.2-1.3); LIPASE 30 U/L (23-300)
[2017-07-24 11:44] LABS: ADD UMIC YES; UR AMORPHOUS CRYSTAL FEW /HPF (NONE SEEN); UR ASCORBIC ACID NEGATIVE (NEGATIVE); UR BACTERIA FEW /HPF (NONE SEEN); UR BILIRUBIN (Dip) NEGATIVE (NEGATIVE); UR BLOOD (Dip) 1+ mg/dL (NEGATIVE); UR CLARITY CLOUDY (CLEAR); UR COLOR YELLOW (YELLOW); UR GLUCOSE (Dip) NEGATIVE (NEGATIVE); UR KETONES (Dip) NEGATIVE (NEGATIVE); UR LEUKOCYTE ESTERASE (Dip) 3+ Leu/ul (NEGATIVE); UR NITRITE (Dip) POSITIVE (NEGATIVE); UR RBC 0 /HPF (0-5); UR SPECIFIC GRAVITY (Dip) 1.011 (1.003-1.030); UR SQUAMOUS EPITHELIAL CELL FEW /HPF (FEW); UR TOTAL PROTEIN (Dip) 2+ mg/dl (NEGATIVE); UR UROBILINOGEN (Dip) NEGATIVE (NEGATIVE); UR WBC 24 /HPF (0-5)
[2017-07-24] MEDS: SOD FERRIC GLUC COMPLX 125 MG in SOD CHLORIDE 0.9% 100 ML IVPB (17:04)
[2017-07-24] MEDS: SUCRALFATE (100 MG/ML) 10ML CUP PO ×2 (17:05→21:12)
[2017-07-25] MEDS: ACCU-CHEK XX ×2 (00:52→23:52)
[2017-07-25 05:13] LABS: ADD MAN DIFF? NO
[2017-07-25 05:34] LABS: WHITE BLOOD COUNT 6.4 10^3/ul (4.8-10.8)
[2017-07-25 05:34] LABS: BASOPHILS % 0.2 % (0.0-2.0); EOSINOPHILS # 0.2 10^3/ul (0.0-0.5); EOSINOPHILS % 2.8 % (0.0-7.0); HEMATOCRIT 24.6 % (37.0-47.0); HEMOGLOBIN 7.9 g/dl (12.0-16.0); MEAN CORPUSCULAR HEMOGLOBIN 33.8 pg (29.0-33.0); MEAN CORPUSCULAR HGB CONC 32.1 g/dl (32.0-37.0); MEAN CORPUSCULAR VOLUME 105.1 fl (82.0-101.0); MEAN PLATELET VOLUME 11.5 fl (7.4-10.4); MONOCYTE # 0.4 10^3/ul (0.3-0.9); MONOCYTES % 6.5 % (0.0-11.0); NEUTROPHIL # 4.8 10^3/ul (1.6-7.5); NEUTROPHILS % 75.2 % (39.0-77.0); PLATELET COUNT 128 10^3/UL (140-415); RED BLOOD COUNT 2.34 10^6/ul (4.20-5.40); RED CELL DISTRIBUTION WIDTH 14.6 % (11.5-14.5)
[2017-07-25 05:36] LABS: ALANINE AMINOTRANSFERASE 48 IU/L (13-69); ALBUMIN 2.4 g/dl (3.3-4.9); ALBUMIN/GLOBULIN RATIO 0.96; ALKALINE PHOSPHATASE 62 IU/L (42-121); ANION GAP 8 (8-16); ASPARTATE AMINO TRANSFERASE 35 IU/L (15-46); BILIRUBIN,INDIRECT 0.4 mg/dl (0-1.1); BILIRUBIN,TOTAL 0.4 mg/dl (0.2-1.3); BLOOD UREA NITROGEN 33 mg/dl (7-20); CALCIUM 7.5 mg/dl (8.4-10.2); CARBON DIOXIDE 33 mmol/L (21-31); CHLORIDE 99 mmol/L (97-110); CREATININE 1.53 mg/dl (0.44-1.00); GLUCOSE 84 mg/dl (70-220); POTASSIUM 4.1 mmol/L (3.5-5.1); SODIUM 136 mmol/L (135-144); TOTAL PROTEIN 4.9 g/dl (6.1-8.1)
[2017-07-25 05:37] LABS: MAGNESIUM 1.9 mg/dl (1.7-2.5)
[2017-07-25 05:37] LABS: PHOSPHORUS 3.9 mg/dl (2.5-4.9)
[2017-07-25] MEDS: PANTOPRAZOLE (EC) 40 MG TAB PO (06:34)
[2017-07-25] MEDS: REGADENOSON 0.4 MG/5 ML SYG (08:15)
[2017-07-25] MEDS: INSULIN ASPART [NOVOLOG] 3 ML PEN SC ×4 (09:35→21:00)
[2017-07-25] MEDS: ESCITALOPRAM 10 MG TAB PO (09:39)
[2017-07-25] MEDS: SUCRALFATE (100 MG/ML) 10ML CUP PO ×4 (09:39→21:00)
[2017-07-25] MEDS: HYDROCODONE/APAP (10/325) TAB NGT (09:39)
[2017-07-25] MEDS: ASPIRIN 81 MG TAB PO (09:39)
[2017-07-25] MEDS: HYOSCYAMINE 0.125 MG TAB PO ×2 (17:11→23:50)
[2017-07-25] MEDS: SOD FERRIC GLUC COMPLX 125 MG in SOD CHLORIDE 0.9% 100 ML IVPB (17:11)
[2017-07-25] MEDS: EPOETIN 10000 UNITS/1 ML INJ (ESRD) SC (17:13)
[2017-07-25] MEDS: LACTULOSE 30ML CUP PO (21:32)
[2017-07-26] MEDS: HYOSCYAMINE 0.125 MG TAB PO ×4 (00:20→17:53)
[2017-07-26] MEDS: DOCUSATE SODIUM 100 MG CAP PO ×3 (02:54→21:34)
[2017-07-26] MEDS: BISACODYL (EC) 5 MG TAB PO (05:50)
[2017-07-26] MEDS: PANTOPRAZOLE (EC) 40 MG TAB PO (05:50)
[2017-07-26] MEDS: INSULIN ASPART [NOVOLOG] 3 ML PEN SC ×4 (07:30→21:50)
[2017-07-26 08:40] LABS: ADD MAN DIFF? NO
[2017-07-26 08:43] LABS: BASOPHILS % 0.1 % (0.0-2.0); EOSINOPHILS # 0.3 10^3/ul (0.0-0.5); EOSINOPHILS % 3.5 % (0.0-7.0); HEMATOCRIT 25.5 % (37.0-47.0); HEMOGLOBIN 8.1 g/dl (12.0-16.0); LYMPHOCYTES # 0.7 10^3/ul (0.8-2.9); MEAN CORPUSCULAR HEMOGLOBIN 33.6 pg (29.0-33.0); MEAN CORPUSCULAR HGB CONC 31.8 g/dl (32.0-37.0); MEAN CORPUSCULAR VOLUME 105.8 fl (82.0-101.0); MEAN PLATELET VOLUME 10.3 fl (7.4-10.4); MONOCYTE # 0.6 10^3/ul (0.3-0.9); MONOCYTES % 7.7 % (0.0-11.0); NEUTROPHIL # 5.6 10^3/ul (1.6-7.5); NEUTROPHILS % 78.1 % (39.0-77.0); PLATELET COUNT 134 10^3/UL (140-415); RED BLOOD COUNT 2.41 10^6/ul (4.20-5.40); RED CELL DISTRIBUTION WIDTH 14.5 % (11.5-14.5)
[2017-07-26 08:43] LABS: WHITE BLOOD COUNT 7.1 10^3/ul (4.8-10.8)
[2017-07-26 09:07] LABS: ANION GAP 12 (8-16); BLOOD UREA NITROGEN 28 mg/dl (7-20); CALCIUM 7.7 mg/dl (8.4-10.2); CARBON DIOXIDE 33 mmol/L (21-31); CHLORIDE 99 mmol/L (97-110); CREATININE 1.42 mg/dl (0.44-1.00); GLUCOSE 84 mg/dl (70-220); MAGNESIUM 1.9 mg/dl (1.7-2.5); PHOSPHORUS 3.4 mg/dl (2.5-4.9); POTASSIUM 4.6 mmol/L (3.5-5.1); SODIUM 139 mmol/L (135-144)
[2017-07-26] MEDS: FUROSEMIDE 40 MG INJ IV ×2 (09:11→17:54)
[2017-07-26] MEDS: POLYETHYLENE GLYCOL 17 GM PACKET PO (09:11)
[2017-07-26] MEDS: SUCRALFATE (100 MG/ML) 10ML CUP PO ×4 (09:11→21:34)
[2017-07-26] MEDS: ASPIRIN 81 MG TAB PO (09:12)
[2017-07-26] MEDS: POTASSIUM CHLORIDE (SR) 20 MEQ TAB PO ×2 (09:12→21:34)
[2017-07-26] MEDS: ESCITALOPRAM 10 MG TAB PO (09:12)
[2017-07-26] MEDS: CEFTRIAXONE 1 GM/50 ML (PMX) 50 ML IVPB (10:48)
[2017-07-26] MEDS: SENNA TAB PO ×2 (12:09→21:33)
[2017-07-26] MEDS: SOD FERRIC GLUC COMPLX 125 MG in SOD CHLORIDE 0.9% 100 ML IVPB (16:43)
[2017-07-26] MEDS: NA PHOSPHATE/BIPHOS 133 ML ENEMA PR (17:53)
[2017-07-26 23:08] LABS: OCCULT BLOOD STOOL NEGATIVE (NEGATIVE)
[2017-07-27] MEDS: ACCU-CHEK XX (02:30)
[2017-07-27] MEDS: PANTOPRAZOLE (EC) 40 MG TAB PO (05:50)
[2017-07-27] MEDS: FUROSEMIDE 40 MG INJ IV ×2 (05:56→18:04)
[2017-07-27] MEDS: HYOSCYAMINE 0.125 MG TAB PO ×3 (05:57→18:03)
[2017-07-27] MEDS: INSULIN ASPART [NOVOLOG] 3 ML PEN SC ×4 (07:30→21:00)
[2017-07-27] MEDS: SENNA TAB PO ×2 (09:00→22:37)
[2017-07-27] MEDS: DOCUSATE SODIUM 100 MG CAP PO ×2 (09:00→22:37)
[2017-07-27] MEDS: POTASSIUM CHLORIDE (SR) 20 MEQ TAB PO ×3 (09:00→22:36)
[2017-07-27] MEDS: POLYETHYLENE GLYCOL 17 GM PACKET PO (09:00)
[2017-07-27 09:49] LABS: ANION GAP 15 (8-16); BLOOD UREA NITROGEN 29 mg/dl (7-20); CALCIUM 8.8 mg/dl (8.4-10.2); CARBON DIOXIDE 33 mmol/L (21-31); CHLORIDE 96 mmol/L (97-110); CREATININE 1.62 mg/dl (0.44-1.00); GLUCOSE 79 mg/dl (70-220); POTASSIUM 4.8 mmol/L (3.5-5.1); SODIUM 139 mmol/L (135-144)
[2017-07-27 09:50] LABS: CHOL/HDL RATIO 2.5 RATIO; HDL CHOLESTEROL 60 mg/dl (33-92); LDL CHOLESTEROL,CALCULATED 65 mg/dl; TRIGLYCERIDES 152 mg/dl (0-149)
[2017-07-27 09:50] LABS: CHOLESTEROL 155 mg/dl (100-200)
[2017-07-27 09:56] LABS: MAGNESIUM 1.6 mg/dl (1.7-2.5)
[2017-07-27 09:56] LABS: PHOSPHORUS 3.8 mg/dl (2.5-4.9)
[2017-07-27 10:19] LABS: B-TYPE NATRIURETIC PEPTIDE 127000 PG/ML (0-450)
[2017-07-27] MEDS: SUCRALFATE (100 MG/ML) 10ML CUP PO ×4 (10:41→21:00)
[2017-07-27] MEDS: ESCITALOPRAM 10 MG TAB PO (10:42)
[2017-07-27] MEDS: ASPIRIN 81 MG TAB PO (10:42)
[2017-07-27] MEDS: CEFTRIAXONE 1 GM/50 ML (PMX) 50 ML IVPB (11:23)
[2017-07-27] MEDS: MAGNESIUM OXIDE 400 MG TAB PO (13:05)
[2017-07-27] MEDS: DIPHENHYDRAMINE 25 MG CAP PO (17:50)
[2017-07-27] MEDS: SOD FERRIC GLUC COMPLX 125 MG in SOD CHLORIDE 0.9% 100 ML IVPB (18:07)
[2017-07-27] MEDS: EPOETIN 10000 UNITS/1 ML INJ (ESRD) SC (18:08)
[2017-07-27] MEDS: METHYLPREDNISOLONE 125 MG INJ IV (20:23)
[2017-07-28] MEDS: HYOSCYAMINE 0.125 MG TAB PO ×3 (00:21→12:16)
[2017-07-28] MEDS: ACCU-CHEK XX (02:00)
[2017-07-28] MEDS: FUROSEMIDE 40 MG INJ IV (06:34)
[2017-07-28] MEDS: PANTOPRAZOLE (EC) 40 MG TAB PO (06:34)
[2017-07-28] MEDS: INSULIN ASPART [NOVOLOG] 3 ML PEN SC ×2 (08:04→11:30)
[2017-07-28] MEDS: ESCITALOPRAM 10 MG TAB PO (09:26)
[2017-07-28] MEDS: POTASSIUM CHLORIDE (SR) 20 MEQ TAB PO (09:26)
[2017-07-28] MEDS: POLYETHYLENE GLYCOL 17 GM PACKET PO (09:26)
[2017-07-28] MEDS: SENNA TAB PO (09:26)
[2017-07-28] MEDS: SUCRALFATE (100 MG/ML) 10ML CUP PO (09:26)
[2017-07-28] MEDS: CEFTRIAXONE 1 GM/50 ML (PMX) 50 ML IVPB (09:26)
[2017-07-28] MEDS: ASPIRIN 81 MG TAB PO (09:26)
[2017-07-28] MEDS: DOCUSATE SODIUM 100 MG CAP PO (09:27)
== END 2017-07-28 15:31 | disposition home health service (06) | DRG 280 ==
LOC: MS4 23:17 → E/R 18:12 → ICU 07-22 14:30
PROC: 06HM33Z Insertion of Infusion Device into Right Femoral Vein, Percutaneous Approach (ICD-10-PCS; principal; 2017-07-22)
PROC: 5A1D70Z Performance of Urinary Filtration, Intermittent, Less than 6 Hours Per Day (ICD-10-PCS; 2017-07-22)
DX: I13.2 Hypertensive heart and chronic kidney disease with heart failure and with stage 5 chronic kidney disease, or end stage renal disease (principal); I21.A1 Myocardial infarction type 2; I50.23 Acute on chronic systolic (congestive) heart failure; N18.6 End stage renal disease; N17.9 Acute kidney failure, unspecified; E87.2 Acidosis; N39.0 Urinary tract infection, site not specified; I42.9 Cardiomyopathy, unspecified; E87.5 Hyperkalemia; E11.22 Type 2 diabetes mellitus with diabetic chronic kidney disease; M48.061 Spinal stenosis, lumbar region without neurogenic claudication; M54.16 Radiculopathy, lumbar region; E78.5 Hyperlipidemia, unspecified; F32.9 Major depressive disorder, single episode, unspecified; D63.1 Anemia in chronic kidney disease; K59.00 Constipation, unspecified; B96.20 Unspecified Escherichia coli [E. coli] as the cause of diseases classified elsewhere; Z79.4 Long term (current) use of insulin; Z79.82 Long term (current) use of aspirin
CPT/HCPCS: 36415; 36600; 71045; 71275; 74018; 74176; 78452; 80048; 80053; 80061; 80076; 81001; 81003; 82150; 82270; 82533; 82550; 82553; 82570; 82607; 82728; 82746; 82803; 82962; 83540; 83605; 83690; 83735; 83880; 84100; 84300; 84443; 84484; 85025; 85378; 85610; 85730; 86320; 87070; 87081; 87086; 90935; 93005; 93017; 93306; 93970; 96374; 96375; 96376; 97162; 99285-25

== ENCOUNTER 2017-09-03 16:13 | Inpatient (IN) | payer OTHER ==
[2017-09-03] MEDS ORDERED: SODIUM CHLORIDE 0.9% 1L BAG IV* (16:51)
[2017-09-03] MEDS ORDERED: CA GLUCONATE (GM) 10% 10ML INJ (16:58)
[2017-09-03] MEDS: CALCIUM GLUCONATE 10% 2 GM in DEXTROSE 5% 100 ML IVPB ×2 (17:00→17:24)
[2017-09-03 17:01] LABS: ADD MAN DIFF? NO
[2017-09-03] MEDS: SOD CHLORIDE 0.9% 1,000 ML IV ×2 (17:03→22:01)
[2017-09-03 17:04] LABS: BASOPHILS % 0.4 % (0.0-2.0); EOSINOPHILS % 0.4 % (0.0-7.0); HEMATOCRIT 31.5 % (37.0-47.0); HEMOGLOBIN 10.2 g/dl (12.0-16.0); LYMPHOCYTES # 1.2 10^3/ul (0.8-2.9); LYMPHOCYTES % 14.2 % (15.0-51.0); MEAN CORPUSCULAR HEMOGLOBIN 33.2 pg (29.0-33.0); MEAN CORPUSCULAR HGB CONC 32.4 g/dl (32.0-37.0); MEAN CORPUSCULAR VOLUME 102.6 fl (82.0-101.0); MEAN PLATELET VOLUME 10.2 fl (7.4-10.4); MONOCYTE # 0.6 10^3/ul (0.3-0.9); MONOCYTES % 7.2 % (0.0-11.0); NEUTROPHIL # 6.4 10^3/ul (1.6-7.5); NEUTROPHILS % 77.3 % (39.0-77.0); PLATELET COUNT 201 10^3/UL (140-415); RED BLOOD COUNT 3.07 10^6/ul (4.20-5.40); RED CELL DISTRIBUTION WIDTH 14.6 % (11.5-14.5)
[2017-09-03 17:04] LABS: WHITE BLOOD COUNT 8.3 10^3/ul (4.8-10.8)
[2017-09-03 17:22] LABS: INR 1.31; PROTIME 16.5 Sec (11.9-14.9); PT RATIO 1.3
[2017-09-03 17:23] LABS: ALANINE AMINOTRANSFERASE 24 IU/L (13-69); ALBUMIN/GLOBULIN RATIO 1.33; ALKALINE PHOSPHATASE 91 IU/L (42-121); ANION GAP 19 (8-16); ASPARTATE AMINO TRANSFERASE 22 IU/L (15-46); BILIRUBIN,INDIRECT 0.5 mg/dl (0-1.1); BILIRUBIN,TOTAL 0.5 mg/dl (0.2-1.3); BLOOD UREA NITROGEN 64 mg/dl (7-20); CARBON DIOXIDE 15 mmol/L (21-31); CHLORIDE 111 mmol/L (97-110); CREATININE 1.99 mg/dl (0.44-1.00); GLUCOSE 203 mg/dl (70-220); MAGNESIUM 1.9 mg/dl (1.7-2.5); PARTIAL THROMBOPLASTIN TIME 30.8 Sec (25.0-35.0); PHOSPHORUS 4.7 mg/dl (2.5-4.9); SODIUM 139 mmol/L (135-144)
[2017-09-03 17:32] LABS: LACTIC ACID 1.8 mmol/L (0.5-2.0)
[2017-09-03] MEDS: SOD CHLORIDE 0.9% 500 ML IV (17:34)
[2017-09-03 17:42] LABS: POTASSIUM 6.3 mmol/L (3.5-5.1)
[2017-09-03 17:43] LABS: TROPONIN-I 0.178 ng/ml (0.000-0.120)
[2017-09-03] MEDS ORDERED: NA POLYST SULFON 15 GM/60 ML BTL PO (17:51)
[2017-09-03] MEDS ORDERED: CA CHLORIDE 10% 10 ML SYRINGE (18:02)
[2017-09-03] MEDS: ALBUTEROL 0.5% (NEB) 2.5 MG/0.5 ML AMP INH (18:11)
[2017-09-03] MEDS: DEXTROSE 50% 50 ML SYRINGE IV (18:14)
[2017-09-03] MEDS: INSULIN REGULAR, HUMAN 100 UNIT/1 ML 3ML VIAL IVP (18:16)
[2017-09-03] MEDS: ASPIRIN 81 MG TAB PO (18:16)
[2017-09-03] MEDS: CA CHLORIDE 10% 10 ML SYRINGE IV (18:20)
[2017-09-03] MEDS ORDERED: NACL 0.9% 3 ML SYG IV (19:30)
[2017-09-03] MEDS ORDERED: DOCUSATE SODIUM 100 MG CAP PO (19:30)
[2017-09-03] MEDS ORDERED: ZOLPIDEM 5 MG TAB PO (19:30)
[2017-09-03 20:18] LABS: LACTIC ACID 2.4 mmol/L (0.5-2.0)
[2017-09-03 20:39] LABS: POTASSIUM 5.9 mmol/L (3.5-5.1)
[2017-09-03] MEDS: BISACODYL (EC) 5 MG TAB PO (22:00)
[2017-09-03] MEDS: NA POLYST SULFON 15 GM/60 ML BTL PO (22:00)
[2017-09-03] MEDS: ATORVASTATIN 10 MG TAB PO (22:00)
[2017-09-03] MEDS: PANTOPRAZOLE (EC) 40 MG TAB PO (22:00)
[2017-09-03] MEDS: CEFTRIAXONE 1 GM/50 ML (PMX) 50 ML IVPB (22:00)
[2017-09-03] MEDS: NORTRIPTYLINE 10 MG CAP PO (22:01)
[2017-09-04 01:37] LABS: LACTIC ACID 0.7 mmol/L (0.5-2.0)
[2017-09-04 02:08] LABS: POTASSIUM 6.4 mmol/L (3.5-5.1)
[2017-09-04] MEDS ORDERED: DEXTROSE 50% 50 ML SYRINGE (02:22)
[2017-09-04] MEDS ORDERED: GLUCOSE GEL 15 GRAM TUBE BUCCAL (02:30)
[2017-09-04] MEDS ORDERED: GLUCOSE GEL 15 GRAM TUBE PO ×2 (02:30)
[2017-09-04] MEDS ORDERED: DEXTROSE 50% 50 ML SYRINGE IV ×2 (02:30)
[2017-09-04] MEDS ORDERED: GLUCAGON 1 MG INJ IM (02:30)
[2017-09-04] MEDS: DEXTROSE 50% 50 ML SYRINGE IV (03:18)
[2017-09-04] MEDS: INSULIN ASPART [NOVOLOG] 3 ML PEN SC (03:19)
[2017-09-04 05:12] LABS: ADD MAN DIFF? NO
[2017-09-04 05:25] LABS: WHITE BLOOD COUNT 6.5 10^3/ul (4.8-10.8)
[2017-09-04 05:25] LABS: BASOPHILS % 0.2 % (0.0-2.0); EOSINOPHILS % 0.2 % (0.0-7.0); HEMATOCRIT 26.9 % (37.0-47.0); HEMOGLOBIN 8.7 g/dl (12.0-16.0); LYMPHOCYTES # 1.8 10^3/ul (0.8-2.9); LYMPHOCYTES % 27.9 % (15.0-51.0); MEAN CORPUSCULAR HEMOGLOBIN 33.9 pg (29.0-33.0); MEAN CORPUSCULAR HGB CONC 32.3 g/dl (32.0-37.0); MEAN CORPUSCULAR VOLUME 104.7 fl (82.0-101.0); MEAN PLATELET VOLUME 10.5 fl (7.4-10.4); MONOCYTE # 0.6 10^3/ul (0.3-0.9); MONOCYTES % 9.9 % (0.0-11.0); NEUTROPHILS % 61.3 % (39.0-77.0); PLATELET COUNT 162 10^3/UL (140-415); RED BLOOD COUNT 2.57 10^6/ul (4.20-5.40); RED CELL DISTRIBUTION WIDTH 14.6 % (11.5-14.5)
[2017-09-04 05:38] LABS: HEMOGLOBIN A1C 5.7 % (0-5.9)
[2017-09-04 05:51] LABS: ANION GAP 17 (8-16); BLOOD UREA NITROGEN 63 mg/dl (7-20); CALCIUM 10.3 mg/dl (8.4-10.2); CARBON DIOXIDE 15 mmol/L (21-31); CHLORIDE 115 mmol/L (97-110); CREATININE 1.96 mg/dl (0.44-1.00); GLUCOSE 139 mg/dl (70-220); MAGNESIUM 1.9 mg/dl (1.7-2.5); PHOSPHORUS 4.3 mg/dl (2.5-4.9); POTASSIUM 5.5 mmol/L (3.5-5.1); SODIUM 141 mmol/L (135-144)
[2017-09-04 05:55] LABS: TROPONIN-I 0.109 ng/ml (0.000-0.120)
[2017-09-04] MEDS: PANTOPRAZOLE (EC) 40 MG TAB PO ×2 (06:19→17:56)
[2017-09-04] MEDS: HYDROCODONE/APAP (5/325) TAB PO ×2 (06:21→14:42)
[2017-09-04 08:21] LABS: AADO2 Arterial 18.7 mmHg (7.0-24.0); Allen Test ACCEPTAB; Arterial Base Excess -9.8 mmol/L (-3.0-3); Arterial Blood Gas Oxygen Sat 96.5 mmHG (95.0-100.0); Arterial COHb 0.1 % (0.0-3.0); Arterial Fraction of Oxyhgb 96.2 % (93.0-99.0); Arterial HCO3 15.1 mmol/L (22.0-26.0); Arterial MetHb 0.2 % (0.0-1.5); Arterial Total Hemglobin 10.1 g/dl (12.0-18.0); Arterial pCO2 29.9 mmhg (35-45); MODE ROOM AIR; Site Right Radial
[2017-09-04] MEDS: FUROSEMIDE 40 MG INJ IV (09:02)
[2017-09-04] MEDS: NA POLYST SULFON 15 GM/60 ML BTL PO (09:03)
[2017-09-04] MEDS: morphine 2 MG INJ IV (09:17)
[2017-09-04 12:30] LABS: TROPONIN-I 0.092 ng/ml (0.000-0.120)
[2017-09-04 12:54] LABS: ADD UMIC YES; UR ASCORBIC ACID NEGATIVE (NEGATIVE); UR BACTERIA MANY /HPF (NONE SEEN); UR BILIRUBIN (Dip) NEGATIVE (NEGATIVE); UR BLOOD (Dip) NEGATIVE (NEGATIVE); UR CLARITY SLIGHTLY CLOUDY (CLEAR); UR COLOR YELLOW (YELLOW); UR GLUCOSE (Dip) NEGATIVE (NEGATIVE); UR KETONES (Dip) NEGATIVE (NEGATIVE); UR LEUKOCYTE ESTERASE (Dip) NEGATIVE Leu/ul (NEGATIVE); UR NITRITE (Dip) NEGATIVE (NEGATIVE); UR RBC 0 /HPF (0-5); UR SPECIFIC GRAVITY (Dip) 1.008 (1.003-1.030); UR TOTAL PROTEIN (Dip) 1+ mg/dl (NEGATIVE); UR UROBILINOGEN (Dip) NEGATIVE (NEGATIVE); UR WBC 4 /HPF (0-5)
[2017-09-04] MEDS: NA BICARBONATE 8.4% 50 ML SYG IV ×2 (13:01→14:42)
[2017-09-04] MEDS ORDERED: morphine LIQ (10 MG/5 ML) CUP PO (13:30)
[2017-09-04 14:48] LABS: POTASSIUM 4.4 mmol/L (3.5-5.1)
[2017-09-04] MEDS: EPOETIN 10000 UNITS/ML (NON ESRD/NON ONCOLOGY) SC (18:00)
[2017-09-04] MEDS: CEFTRIAXONE 1 GM/50 ML (PMX) 50 ML IVPB (20:52)
[2017-09-04] MEDS: SOD CHLORIDE 0.9% 1,000 ML IV (20:52)
[2017-09-04] MEDS: NORTRIPTYLINE 10 MG CAP PO (20:53)
[2017-09-04] MEDS: ATORVASTATIN 10 MG TAB PO (20:53)
[2017-09-05 05:10] LABS: ADD MAN DIFF? NO
[2017-09-05] MEDS: PANTOPRAZOLE (EC) 40 MG TAB PO ×2 (05:10→18:17)
[2017-09-05 05:19] LABS: WHITE BLOOD COUNT 6.9 10^3/ul (4.8-10.8)
[2017-09-05 05:19] LABS: BASOPHILS % 0.3 % (0.0-2.0); EOSINOPHILS # 0.1 10^3/ul (0.0-0.5); EOSINOPHILS % 1.7 % (0.0-7.0); HEMOGLOBIN 9.9 g/dl (12.0-16.0); LYMPHOCYTES # 0.8 10^3/ul (0.8-2.9); LYMPHOCYTES % 11.8 % (15.0-51.0); MEAN CORPUSCULAR HEMOGLOBIN 33.7 pg (29.0-33.0); MEAN PLATELET VOLUME 9.8 fl (7.4-10.4); MONOCYTE # 0.6 10^3/ul (0.3-0.9); NEUTROPHIL # 5.3 10^3/ul (1.6-7.5); NEUTROPHILS % 76.9 % (39.0-77.0); PLATELET COUNT 181 10^3/UL (140-415); RED BLOOD COUNT 2.94 10^6/ul (4.20-5.40); RED CELL DISTRIBUTION WIDTH 14.6 % (11.5-14.5)
[2017-09-05 05:32] LABS: IRON 25 ug/dl (35-150)
[2017-09-05 05:40] LABS: ANION GAP 17 (8-16); BLOOD UREA NITROGEN 48 mg/dl (7-20); CALCIUM 8.8 mg/dl (8.4-10.2); CARBON DIOXIDE 20 mmol/L (21-31); CHLORIDE 111 mmol/L (97-110); CREATININE 1.72 mg/dl (0.44-1.00); GLUCOSE 86 mg/dl (70-220); MAGNESIUM 1.5 mg/dl (1.7-2.5); PHOSPHORUS 3.5 mg/dl (2.5-4.9); POTASSIUM 4.3 mmol/L (3.5-5.1); SODIUM 144 mmol/L (135-144)
[2017-09-05 05:41] LABS: % IRON SATURATION 11 % SAT (22-52); TOTAL IRON BINDING CAPACITY 227 ug/dl (241-421)
[2017-09-05] MEDS: ONDANSETRON 4 MG INJ IV (08:54)
[2017-09-05] MEDS ORDERED: MAGNESIUM SULFATE 3 GM in DEXTROSE 5% 100 ML IVPB (11:00)
[2017-09-05] MEDS: FUROSEMIDE 40 MG INJ IV (11:28)
[2017-09-05] MEDS: MAG SULFATE 2GM IN 50 ML IVPB (11:29)
[2017-09-05] MEDS: MAGNESIUM SULFATE 1 GM/D5W 100 ML IVPB (13:21)
[2017-09-05] MEDS: SOD FERRIC GLUC COMPLX 125 MG in SOD CHLORIDE 0.9% 100 ML IVPB (18:17)
[2017-09-05] MEDS: ACETAMINOPHEN 325 MG TAB PO (18:42)
[2017-09-05] MEDS: SOD CHLORIDE 0.9% 1,000 ML IV (19:05)
[2017-09-05] MEDS: CEFTRIAXONE 1 GM/50 ML (PMX) 50 ML IVPB (19:39)
[2017-09-05] MEDS: ATORVASTATIN 10 MG TAB PO (21:34)
[2017-09-05] MEDS: NA BICARBONATE 650 MG TAB PO (21:34)
[2017-09-05] MEDS: NORTRIPTYLINE 10 MG CAP PO (21:35)
[2017-09-06 05:22] LABS: ADD MAN DIFF? NO
[2017-09-06 05:28] LABS: WHITE BLOOD COUNT 4.8 10^3/ul (4.8-10.8)
[2017-09-06 05:28] LABS: BASOPHILS % 0.4 % (0.0-2.0); EOSINOPHILS # 0.3 10^3/ul (0.0-0.5); EOSINOPHILS % 5.4 % (0.0-7.0); HEMOGLOBIN 11.5 g/dl (12.0-16.0); LYMPHOCYTES # 1.7 10^3/ul (0.8-2.9); LYMPHOCYTES % 35.8 % (15.0-51.0); MEAN CORPUSCULAR HEMOGLOBIN 33.3 pg (29.0-33.0); MEAN CORPUSCULAR HGB CONC 32.9 g/dl (32.0-37.0); MEAN CORPUSCULAR VOLUME 101.4 fl (82.0-101.0); MEAN PLATELET VOLUME 9.9 fl (7.4-10.4); MONOCYTE # 0.7 10^3/ul (0.3-0.9); NEUTROPHIL # 2.1 10^3/ul (1.6-7.5); NUCLEATED RED BLOOD CELLS% 0.4 /100WBC (0.0-0.0); PLATELET COUNT 210 10^3/UL (140-415); RED BLOOD COUNT 3.45 10^6/ul (4.20-5.40); RED CELL DISTRIBUTION WIDTH 14.8 % (11.5-14.5)
[2017-09-06 05:45] LABS: PHOSPHORUS 3.3 mg/dl (2.5-4.9)
[2017-09-06 05:45] LABS: MAGNESIUM 2.5 mg/dl (1.7-2.5)
[2017-09-06 05:46] LABS: ANION GAP 14 (8-16); BLOOD UREA NITROGEN 41 mg/dl (7-20); CALCIUM 8.6 mg/dl (8.4-10.2); CARBON DIOXIDE 26 mmol/L (21-31); CHLORIDE 106 mmol/L (97-110); CREATININE 1.55 mg/dl (0.44-1.00); GLUCOSE 121 mg/dl (70-220); POTASSIUM 4.3 mmol/L (3.5-5.1); SODIUM 142 mmol/L (135-144)
[2017-09-06] MEDS: PANTOPRAZOLE (EC) 40 MG TAB PO ×2 (06:36→18:00)
[2017-09-06] MEDS: ACETAMINOPHEN 325 MG TAB PO (11:45)
[2017-09-06] MEDS: hydrALAzine 20 MG INJ IV (16:35)
[2017-09-06] MEDS ORDERED: LABETALOL HCL 20MG INJ (16:53)
[2017-09-06] MEDS: EPOETIN 10000 UNITS/ML (NON ESRD/NON ONCOLOGY) SC (17:00)
[2017-09-06] MEDS: LABETALOL HCL 20MG INJ IV (17:08)
[2017-09-06] MEDS ORDERED: morphine 2 MG INJ IV (17:27)
[2017-09-06] MEDS: ATORVASTATIN 10 MG TAB PO (20:24)
== END 2017-09-06 20:30 | disposition home health service (06) | DRG 280 ==
LOC: ICU 19:47 → E/R 16:13 → ICU 18:04
DX: I13.0 Hypertensive heart and chronic kidney disease with heart failure and stage 1 through stage 4 chronic kidney disease, or unspecified chronic kidney disease (principal); I50.23 Acute on chronic systolic (congestive) heart failure; I21.4 Non-ST elevation (NSTEMI) myocardial infarction; G93.41 Metabolic encephalopathy; N17.9 Acute kidney failure, unspecified; E11.22 Type 2 diabetes mellitus with diabetic chronic kidney disease; E87.5 Hyperkalemia; E86.0 Dehydration; I25.5 Ischemic cardiomyopathy; R00.1 Bradycardia, unspecified; D63.1 Anemia in chronic kidney disease; N18.9 Chronic kidney disease, unspecified; M47.812 Spondylosis without myelopathy or radiculopathy, cervical region; M25.511 Pain in right shoulder; Z96.652 Presence of left artificial knee joint; Z79.4 Long term (current) use of insulin
CPT/HCPCS: 36415; 36600; 71045; 80048; 80053; 81001; 82728; 82803; 82962; 83036; 83540; 83605; 83735; 84100; 84132; 84443; 84484; 85025; 85610; 85730; 87040; 87086; 93005; 94664; 96365; 99291-25

== ENCOUNTER 2017-10-16 15:52 | Inpatient (IN) | payer OTHER ==
[2017-10-16 17:17] LABS: ADD MAN DIFF? NO
[2017-10-16 17:21] LABS: BASOPHILS % 0.2 % (0.0-2.0); EOSINOPHILS # 0.1 10^3/ul (0.0-0.5); EOSINOPHILS % 2.5 % (0.0-7.0); HEMATOCRIT 30.7 % (37.0-47.0); HEMOGLOBIN 10.3 g/dl (12.0-16.0); IMMATURE GRANS #M 0.01 10^3/ul; IMMATURE GRANS % (M) 0.2 %; LYMPHOCYTES # 1.5 10^3/ul (0.8-2.9); LYMPHOCYTES % 30.6 % (15.0-51.0); MEAN CORPUSCULAR HEMOGLOBIN 34.6 pg (29.0-33.0); MEAN CORPUSCULAR HGB CONC 33.6 g/dl (32.0-37.0); MEAN PLATELET VOLUME 10.1 fl (7.4-10.4); MONOCYTE # 0.4 10^3/ul (0.3-0.9); MONOCYTES % 7.6 % (0.0-11.0); NEUTROPHIL # 2.9 10^3/ul (1.6-7.5); NEUTROPHILS % 58.9 % (39.0-77.0); PLATELET COUNT 260 10^3/UL (140-415); RED BLOOD COUNT 2.98 10^6/ul (4.20-5.40); RED CELL DISTRIBUTION WIDTH 14.3 % (11.5-14.5)
[2017-10-16 17:21] LABS: WHITE BLOOD COUNT 4.8 10^3/ul (4.8-10.8)
[2017-10-16] MEDS: ONDANSETRON 4 MG INJ IV (17:35)
[2017-10-16] MEDS: SOD CHLORIDE 0.9% 1,000 ML IV (17:35)
[2017-10-16 17:38] LABS: ANION GAP 17 (8-16); BLOOD UREA NITROGEN 101 mg/dl (7-20); CARBON DIOXIDE 18 mmol/L (21-31); CHLORIDE 111 mmol/L (97-110); CREATININE 2.21 mg/dl (0.44-1.00); GLUCOSE 155 mg/dl (70-220); SODIUM 140 mmol/L (135-144)
[2017-10-16 17:47] LABS: POTASSIUM 5.5 mmol/L (3.5-5.1)
[2017-10-16 19:41] LABS: ADD UMIC YES; UR ASCORBIC ACID NEGATIVE (NEGATIVE); UR BACTERIA FEW /HPF (NONE SEEN); UR BILIRUBIN (Dip) NEGATIVE (NEGATIVE); UR BLOOD (Dip) NEGATIVE (NEGATIVE); UR CLARITY SLIGHTLY CLOUDY (CLEAR); UR COLOR YELLOW (YELLOW); UR GLUCOSE (Dip) NEGATIVE (NEGATIVE); UR KETONES (Dip) NEGATIVE (NEGATIVE); UR LEUKOCYTE ESTERASE (Dip) 1+ Leu/ul (NEGATIVE); UR NITRITE (Dip) NEGATIVE (NEGATIVE); UR RBC 0 /HPF (0-5); UR SPECIFIC GRAVITY (Dip) 1.006 (1.003-1.030); UR TOTAL PROTEIN (Dip) NEGATIVE (NEGATIVE); UR UROBILINOGEN (Dip) NEGATIVE (NEGATIVE); UR WBC 24 /HPF (0-5)
[2017-10-16] MEDS: LACTATED RINGER'S 1,000 ML IV (21:26)
[2017-10-16] MEDS: CEFTRIAXONE 1 GM/50 ML (PMX) 50 ML IVPB (21:26)
[2017-10-16] MEDS: HYDROCODONE/APAP (5/325) TAB PO (22:06)
[2017-10-17] MEDS ORDERED: NACL 0.9% 3 ML SYG IV (04:00)
[2017-10-17] MEDS ORDERED: ALBUTEROL HFA 8 GM INHALER INH (04:00)
[2017-10-17] MEDS ORDERED: ALBUTEROL/IPRATROPIUM (NEB) 3 ML AMP HHN (04:00)
[2017-10-17] MEDS ORDERED: ONDANSETRON 4 MG INJ IV (04:00)
[2017-10-17] MEDS: PANTOPRAZOLE (EC) 40 MG TAB PO ×2 (06:08→17:00)
[2017-10-17] MEDS: FUROSEMIDE 40 MG TAB PO (06:09)
[2017-10-17 06:14] LABS: ADD MAN DIFF? NO
[2017-10-17 06:21] LABS: BASOPHILS % 0.2 % (0.0-2.0); EOSINOPHILS # 0.1 10^3/ul (0.0-0.5); EOSINOPHILS % 3.5 % (0.0-7.0); HEMOGLOBIN 9.9 g/dl (12.0-16.0); IMMATURE GRANS #M 0.01 10^3/ul; IMMATURE GRANS % (M) 0.2 %; LYMPHOCYTES # 1.5 10^3/ul (0.8-2.9); LYMPHOCYTES % 36.6 % (15.0-51.0); MEAN CORPUSCULAR VOLUME 103.1 fl (82.0-101.0); MEAN PLATELET VOLUME 9.7 fl (7.4-10.4); MONOCYTE # 0.4 10^3/ul (0.3-0.9); MONOCYTES % 10.1 % (0.0-11.0); NEUTROPHILS % 49.4 % (39.0-77.0); PLATELET COUNT 248 10^3/UL (140-415); RED BLOOD COUNT 2.91 10^6/ul (4.20-5.40); RED CELL DISTRIBUTION WIDTH 14.2 % (11.5-14.5)
[2017-10-17 06:53] LABS: ALANINE AMINOTRANSFERASE 21 IU/L (13-69); ALBUMIN 3.3 g/dl (3.3-4.9); ALBUMIN/GLOBULIN RATIO 1.06; ALKALINE PHOSPHATASE 92 IU/L (42-121); ANION GAP 13 (8-16); ASPARTATE AMINO TRANSFERASE 21 IU/L (15-46); BILIRUBIN,INDIRECT 0.1 mg/dl (0-1.1); BILIRUBIN,TOTAL 0.1 mg/dl (0.2-1.3); BLOOD UREA NITROGEN 91 mg/dl (7-20); CALCIUM 8.8 mg/dl (8.4-10.2); CARBON DIOXIDE 20 mmol/L (21-31); CHLORIDE 115 mmol/L (97-110); GLUCOSE 93 mg/dl (70-220); MAGNESIUM 2.3 mg/dl (1.7-2.5); POTASSIUM 5.7 mmol/L (3.5-5.1); SODIUM 142 mmol/L (135-144); TOTAL PROTEIN 6.4 g/dl (6.1-8.1)
[2017-10-17] MEDS ORDERED: NON-FORMULARY/PATIENT OWN MED (Omeprazole* 20 MG) PO (09:00)
[2017-10-17] MEDS: ESCITALOPRAM 10 MG TAB PO (09:23)
[2017-10-17] MEDS: GABAPENTIN 300 MG CAP PO ×3 (09:24→21:59)
[2017-10-17] MEDS: ALLOPURINOL 100 MG TAB PO (09:24)
[2017-10-17] MEDS: NA POLYST SULFON 15 GM/60 ML BTL PO (12:42)
[2017-10-17] MEDS: SODIUM BICARBONATE (IV ADD) 100 MEQ in SOD CHLORIDE 0.9% 1,000 ML IV (18:14)
[2017-10-17] MEDS ORDERED: NON-FORMULARY/PATIENT OWN MED (Carvedilol* 6.25 MG) PO (21:00)
[2017-10-17] MEDS: CEFTRIAXONE 1 GM/50 ML (PMX) 50 ML IVPB (21:58)
[2017-10-17] MEDS: ATORVASTATIN 10 MG TAB PO (21:59)
[2017-10-17 23:25] LABS: POTASSIUM 4.9 mmol/L (3.5-5.1)
[2017-10-18] MEDS: hydrALAzine 20 MG INJ IV ×4 (00:32→17:15)
[2017-10-18] MEDS: SODIUM BICARBONATE (IV ADD) 100 MEQ in SOD CHLORIDE 0.9% 1,000 ML IV (04:05)
[2017-10-18 05:49] LABS: ADD MAN DIFF? NO
[2017-10-18 05:53] LABS: BASOPHILS % 0.5 % (0.0-2.0); EOSINOPHILS # 0.1 10^3/ul (0.0-0.5); EOSINOPHILS % 2.3 % (0.0-7.0); HEMATOCRIT 31.7 % (37.0-47.0); HEMOGLOBIN 10.3 g/dl (12.0-16.0); LYMPHOCYTES # 1.4 10^3/ul (0.8-2.9); LYMPHOCYTES % 31.4 % (15.0-51.0); MEAN CORPUSCULAR HEMOGLOBIN 33.4 pg (29.0-33.0); MEAN CORPUSCULAR HGB CONC 32.5 g/dl (32.0-37.0); MEAN CORPUSCULAR VOLUME 102.9 fl (82.0-101.0); MEAN PLATELET VOLUME 9.6 fl (7.4-10.4); MONOCYTE # 0.5 10^3/ul (0.3-0.9); MONOCYTES % 10.3 % (0.0-11.0); NEUTROPHIL # 2.4 10^3/ul (1.6-7.5); NEUTROPHILS % 55.3 % (39.0-77.0); PLATELET COUNT 254 10^3/UL (140-415); RED BLOOD COUNT 3.08 10^6/ul (4.20-5.40); RED CELL DISTRIBUTION WIDTH 14.4 % (11.5-14.5)
[2017-10-18 05:53] LABS: WHITE BLOOD COUNT 4.4 10^3/ul (4.8-10.8)
[2017-10-18] MEDS: PANTOPRAZOLE (EC) 40 MG TAB PO ×2 (06:27→17:14)
[2017-10-18 06:37] LABS: ANION GAP 12 (8-16); BLOOD UREA NITROGEN 78 mg/dl (7-20); CALCIUM 8.7 mg/dl (8.4-10.2); CARBON DIOXIDE 24 mmol/L (21-31); CHLORIDE 113 mmol/L (97-110); GLUCOSE 93 mg/dl (70-220); MAGNESIUM 2.1 mg/dl (1.7-2.5); PHOSPHORUS 4.6 mg/dl (2.5-4.9); POTASSIUM 4.9 mmol/L (3.5-5.1); SODIUM 144 mmol/L (135-144)
[2017-10-18] MEDS: GABAPENTIN 300 MG CAP PO ×3 (09:43→21:26)
[2017-10-18] MEDS: ALLOPURINOL 100 MG TAB PO (09:44)
[2017-10-18] MEDS: ESCITALOPRAM 10 MG TAB PO (09:44)
[2017-10-18] MEDS: AMLODIPINE 5 MG TAB PO ×2 (10:39→14:53)
[2017-10-18] MEDS: ATORVASTATIN 10 MG TAB PO (21:26)
[2017-10-18] MEDS: CEFTRIAXONE 1 GM/50 ML (PMX) 50 ML IVPB (21:26)
[2017-10-19] MEDS: ACETAMINOPHEN 325 MG TAB PO (04:32)
[2017-10-19 06:12] LABS: ANION GAP 13 (8-16); BLOOD UREA NITROGEN 61 mg/dl (7-20); CALCIUM 9.2 mg/dl (8.4-10.2); CARBON DIOXIDE 25 mmol/L (21-31); CHLORIDE 110 mmol/L (97-110); CREATININE 1.31 mg/dl (0.44-1.00); GLUCOSE 112 mg/dl (70-220); PHOSPHORUS 4.1 mg/dl (2.5-4.9); POTASSIUM 4.8 mmol/L (3.5-5.1); SODIUM 143 mmol/L (135-144)
[2017-10-19] MEDS: PANTOPRAZOLE (EC) 40 MG TAB PO ×2 (06:16→17:36)
[2017-10-19] MEDS: hydrALAzine 20 MG INJ IV (06:48)
[2017-10-19 08:17] LABS: SODIUM,URINE RANDOM 76 mmol/L (30-90)
[2017-10-19 08:22] LABS: CREATININE,URINE RANDOM 52.51 mg/dl (20-320); PROTEIN/CREAT RATIO 1.27 RATIO
[2017-10-19] MEDS: ESCITALOPRAM 10 MG TAB PO (08:55)
[2017-10-19] MEDS: AMLODIPINE 10 MG TAB PO (08:56)
[2017-10-19] MEDS: ALLOPURINOL 100 MG TAB PO (08:56)
[2017-10-19] MEDS: GABAPENTIN 300 MG CAP PO ×2 (08:56→12:12)
[2017-10-19] MEDS: FUROSEMIDE 20 MG TAB PO (11:28)
[2017-10-19] MEDS: LISINOPRIL 10 MG TAB PO (11:28)
== END 2017-10-19 18:15 | disposition home health service (06) | DRG 683 ==
LOC: PP2 22:14 → E/R 15:52 → 6WM 10-17 04:17
DX: N17.9 Acute kidney failure, unspecified (principal); I13.0 Hypertensive heart and chronic kidney disease with heart failure and stage 1 through stage 4 chronic kidney disease, or unspecified chronic kidney disease; N39.0 Urinary tract infection, site not specified; E87.5 Hyperkalemia; I50.9 Heart failure, unspecified; N18.9 Chronic kidney disease, unspecified; E11.22 Type 2 diabetes mellitus with diabetic chronic kidney disease; I25.5 Ischemic cardiomyopathy; D64.9 Anemia, unspecified; Z79.84 Long term (current) use of oral hypoglycemic drugs
CPT/HCPCS: 36415; 70450; 70551; 71045; 80048; 80053; 81001; 81003; 82570; 82962; 83735; 84100; 84132; 84300; 84484; 85025; 87086; 93005; 96374; 96375; 97161; 99217; 99285-25; G0378

== ENCOUNTER 2017-11-04 18:00 | Inpatient (IN) | payer OTHER ==
[2017-11-04] MEDS ORDERED: CA GLUCONATE (GM) 10% 10ML INJ (18:15)
[2017-11-04 18:20] LABS: ADD MAN DIFF? NO
[2017-11-04 18:23] LABS: WHITE BLOOD COUNT 6.9 10^3/ul (4.8-10.8)
[2017-11-04 18:23] LABS: BASOPHILS % 0.4 % (0.0-2.0); EOSINOPHILS # 0.1 10^3/ul (0.0-0.5); EOSINOPHILS % 1.2 % (0.0-7.0); HEMATOCRIT 27.7 % (37.0-47.0); LYMPHOCYTES # 1.4 10^3/ul (0.8-2.9); LYMPHOCYTES % 20.4 % (15.0-51.0); MEAN CORPUSCULAR HEMOGLOBIN 34.1 pg (29.0-33.0); MEAN CORPUSCULAR HGB CONC 32.5 g/dl (32.0-37.0); MEAN CORPUSCULAR VOLUME 104.9 fl (82.0-101.0); MEAN PLATELET VOLUME 10.4 fl (7.4-10.4); MONOCYTE # 0.7 10^3/ul (0.3-0.9); MONOCYTES % 10.4 % (0.0-11.0); NEUTROPHIL # 4.6 10^3/ul (1.6-7.5); NEUTROPHILS % 67.5 % (39.0-77.0); PLATELET COUNT 168 10^3/UL (140-415); RED BLOOD COUNT 2.64 10^6/ul (4.20-5.40); RED CELL DISTRIBUTION WIDTH 14.2 % (11.5-14.5)
[2017-11-04] MEDS: CA CHLORIDE 10% 10 ML SYRINGE IV ×2 (18:23→18:48)
[2017-11-04] MEDS: CALCIUM GLUCONATE 10% 1 GM in DEXTROSE 5% 100 ML IVPB (18:29)
[2017-11-04] MEDS ORDERED: NORepinephrine 8MG/250 ML (PMX 250 ML (18:31)
[2017-11-04 18:32] LABS: INR 1.19; PROTIME 15.3 Sec (11.9-14.9); PT RATIO 1.2
[2017-11-04 18:34] LABS: ALANINE AMINOTRANSFERASE 17 IU/L (13-69); ALBUMIN 3.5 g/dl (3.3-4.9); ALKALINE PHOSPHATASE 74 IU/L (42-121); ANION GAP 18 (8-16); ASPARTATE AMINO TRANSFERASE 16 IU/L (15-46); BLOOD UREA NITROGEN 96 mg/dl (7-20); CALCIUM 8.5 mg/dl (8.4-10.2); CARBON DIOXIDE 14 mmol/L (21-31); CHLORIDE 113 mmol/L (97-110); CREATININE 4.89 mg/dl (0.44-1.00); GLUCOSE 114 mg/dl (70-220); SODIUM 138 mmol/L (135-144); TOTAL PROTEIN 6.4 g/dl (6.1-8.1)
[2017-11-04 18:37] LABS: POTASSIUM 7.3 mmol/L (3.5-5.1)
[2017-11-04] MEDS: FUROSEMIDE 40 MG INJ IV (18:37)
[2017-11-04 18:46] LABS: B-TYPE NATRIURETIC PEPTIDE 21800 PG/ML (0-450); TROPONIN-I 0.017 ng/ml (0.000-0.120)
[2017-11-04] MEDS: NA BICARBONATE 8.4% 50 ML SYG IV (18:48)
[2017-11-04] MEDS: INSULIN REGULAR, HUMAN 100 UNIT/1 ML 3ML VIAL IVP (18:50)
[2017-11-04] MEDS: SOD CHLORIDE 0.9% 1,000 ML IV (18:51)
[2017-11-04] MEDS: DEXTROSE 50% 50 ML SYRINGE IV (18:51)
[2017-11-04] MEDS: NA POLYST SULFON 15 GM/60 ML BTL PO (19:00)
[2017-11-04] MEDS: ALBUTEROL 0.5% (NEB) 2.5 MG/0.5 ML AMP INH (19:11)
[2017-11-04] MEDS: PANTOPRAZOLE (EC) 40 MG TAB PO (20:46)
[2017-11-04] MEDS ORDERED: NACL 0.9% 3 ML SYG IV (21:00)
[2017-11-04 21:49] LABS: HEPATITIS B SURFACE ANTIGEN NEGATIVE (NEGATIVE)
[2017-11-04] MEDS: MANNITOL 25% 50 ML IV (22:14)
[2017-11-05] MEDS: HEPARIN 1000 UNITS/ML 10 ML INJ CATHETER (00:48)
[2017-11-05 02:46] LABS: ANION GAP 13 (8-16); BLOOD UREA NITROGEN 38 mg/dl (7-20); CALCIUM 8.9 mg/dl (8.4-10.2); CARBON DIOXIDE 28 mmol/L (21-31); CHLORIDE 104 mmol/L (97-110); CREATININE 1.87 mg/dl (0.44-1.00); GLUCOSE 97 mg/dl (70-220); SODIUM 141 mmol/L (135-144)
[2017-11-05] MEDS: morphine 2 MG INJ IV (04:35)
[2017-11-05] MEDS: ONDANSETRON 4 MG INJ IV (04:35)
[2017-11-05 05:16] LABS: ADD MAN DIFF? NO
[2017-11-05 05:23] LABS: WHITE BLOOD COUNT 7.7 10^3/ul (4.8-10.8)
[2017-11-05 05:23] LABS: BASOPHILS % 0.3 % (0.0-2.0); EOSINOPHILS # 0.1 10^3/ul (0.0-0.5); EOSINOPHILS % 0.6 % (0.0-7.0); HEMOGLOBIN 9.6 g/dl (12.0-16.0); LYMPHOCYTES # 1.9 10^3/ul (0.8-2.9); LYMPHOCYTES % 24.1 % (15.0-51.0); MEAN CORPUSCULAR HEMOGLOBIN 33.9 pg (29.0-33.0); MEAN CORPUSCULAR HGB CONC 34.3 g/dl (32.0-37.0); MEAN CORPUSCULAR VOLUME 98.9 fl (82.0-101.0); MEAN PLATELET VOLUME 10.2 fl (7.4-10.4); MONOCYTE # 0.6 10^3/ul (0.3-0.9); MONOCYTES % 7.6 % (0.0-11.0); NEUTROPHIL # 5.2 10^3/ul (1.6-7.5); PLATELET COUNT 174 10^3/UL (140-415); RED BLOOD COUNT 2.83 10^6/ul (4.20-5.40); RED CELL DISTRIBUTION WIDTH 13.7 % (11.5-14.5)
[2017-11-05 05:33] LABS: HEMOGLOBIN A1C 6.1 % (0-5.9)
[2017-11-05] MEDS: PANTOPRAZOLE (EC) 40 MG TAB PO ×2 (05:38→17:17)
[2017-11-05 06:03] LABS: ALANINE AMINOTRANSFERASE 24 IU/L (13-69); ALBUMIN 3.4 g/dl (3.3-4.9); ALBUMIN/GLOBULIN RATIO 1.09; ALKALINE PHOSPHATASE 89 IU/L (42-121); ANION GAP 12 (8-16); ASPARTATE AMINO TRANSFERASE 21 IU/L (15-46); BILIRUBIN,INDIRECT 0.3 mg/dl (0-1.1); BILIRUBIN,TOTAL 0.3 mg/dl (0.2-1.3); BLOOD UREA NITROGEN 38 mg/dl (7-20); CALCIUM 8.8 mg/dl (8.4-10.2); CARBON DIOXIDE 30 mmol/L (21-31); CHLORIDE 102 mmol/L (97-110); CHOL/HDL RATIO 2.2 RATIO; CHOLESTEROL 119 mg/dl (100-200); CREATININE 1.94 mg/dl (0.44-1.00); GLUCOSE 82 mg/dl (70-220); HDL CHOLESTEROL 52 mg/dl (33-92); LDL CHOLESTEROL,CALCULATED 51 mg/dl; MAGNESIUM 1.9 mg/dl (1.7-2.5); SODIUM 140 mmol/L (135-144); TOTAL PROTEIN 6.5 g/dl (6.1-8.1); TRIGLYCERIDES 79 mg/dl (0-149)
[2017-11-05 06:25] LABS: THYROID STIMULATING HORMONE 0.596 MIU/L (0.465-4.680)
[2017-11-05] MEDS: HYDROCODONE/APAP (5/325) TAB PO (08:17)
[2017-11-05] MEDS: ATORVASTATIN 10 MG TAB PO (08:18)
[2017-11-05] MEDS: ESCITALOPRAM 10 MG TAB PO (08:18)
[2017-11-05] MEDS: FUROSEMIDE 40 MG TAB GTB (09:39)
[2017-11-05] MEDS: ACETAMINOPHEN 325 MG TAB PO (16:55)
[2017-11-05] MEDS: DOCUSATE SODIUM 100 MG CAP PO (21:24)
[2017-11-05] MEDS: GABAPENTIN 100 MG CAP PO (21:24)
[2017-11-06 05:37] LABS: ADD MAN DIFF? NO
[2017-11-06 05:45] LABS: WHITE BLOOD COUNT 5.1 10^3/ul (4.8-10.8)
[2017-11-06 05:45] LABS: BASOPHILS % 0.8 % (0.0-2.0); EOSINOPHILS # 0.2 10^3/ul (0.0-0.5); EOSINOPHILS % 3.7 % (0.0-7.0); HEMATOCRIT 27.3 % (37.0-47.0); HEMOGLOBIN 9.2 g/dl (12.0-16.0); LYMPHOCYTES # 2.1 10^3/ul (0.8-2.9); LYMPHOCYTES % 41.3 % (15.0-51.0); MEAN CORPUSCULAR HEMOGLOBIN 34.1 pg (29.0-33.0); MEAN CORPUSCULAR HGB CONC 33.7 g/dl (32.0-37.0); MEAN CORPUSCULAR VOLUME 101.1 fl (82.0-101.0); MEAN PLATELET VOLUME 9.9 fl (7.4-10.4); MONOCYTE # 0.5 10^3/ul (0.3-0.9); MONOCYTES % 10.6 % (0.0-11.0); NEUTROPHIL # 2.2 10^3/ul (1.6-7.5); NEUTROPHILS % 43.4 % (39.0-77.0); PLATELET COUNT 173 10^3/UL (140-415); RED CELL DISTRIBUTION WIDTH 13.6 % (11.5-14.5)
[2017-11-06 06:11] LABS: ANION GAP 10 (8-16); BLOOD UREA NITROGEN 40 mg/dl (7-20); CALCIUM 8.1 mg/dl (8.4-10.2); CARBON DIOXIDE 32 mmol/L (21-31); CHLORIDE 103 mmol/L (97-110); CREATININE 2.23 mg/dl (0.44-1.00); GLUCOSE 82 mg/dl (70-220); POTASSIUM 4.6 mmol/L (3.5-5.1); SODIUM 140 mmol/L (135-144)
[2017-11-06] MEDS: PANTOPRAZOLE (EC) 40 MG TAB PO ×2 (06:11→18:20)
[2017-11-06] MEDS: HYDROCODONE/APAP (5/325) TAB PO ×2 (06:54→18:17)
[2017-11-06] MEDS: GABAPENTIN 100 MG CAP PO ×2 (08:26→21:59)
[2017-11-06] MEDS: DOCUSATE SODIUM 100 MG CAP PO ×2 (08:27→21:59)
[2017-11-06] MEDS: ESCITALOPRAM 10 MG TAB PO (08:27)
[2017-11-06] MEDS: FUROSEMIDE 40 MG TAB GTB (08:27)
[2017-11-06] MEDS: ATORVASTATIN 10 MG TAB PO (08:27)
[2017-11-06] MEDS ORDERED: LISINOPRIL 20 MG TAB PO (09:30)
[2017-11-06] MEDS: SOD CHLORIDE 0.9% 1,000 ML IV (12:58)
[2017-11-06] MEDS: ISOSORBIDE MONONITRATE(SR)60 MG TAB PO (12:58)
[2017-11-06] MEDS: ONDANSETRON 4 MG INJ IV (12:58)
[2017-11-06] MEDS ORDERED: morphine LIQ (10 MG/5 ML) CUP PO (15:00)
[2017-11-06] MEDS: EPOETIN 10000 UNITS/ML (NON ESRD/NON ONCOLOGY) SC (18:19)
[2017-11-07 05:55] LABS: WHITE BLOOD COUNT 5.1 10^3/ul (4.8-10.8)
[2017-11-07 05:55] LABS: ADD MAN DIFF? NO; BASOPHILS % 0.4 % (0.0-2.0); EOSINOPHILS # 0.2 10^3/ul (0.0-0.5); EOSINOPHILS % 3.9 % (0.0-7.0); HEMOGLOBIN 9.1 g/dl (12.0-16.0); LYMPHOCYTES # 2.3 10^3/ul (0.8-2.9); MEAN CORPUSCULAR HEMOGLOBIN 34.5 pg (29.0-33.0); MEAN CORPUSCULAR HGB CONC 33.7 g/dl (32.0-37.0); MEAN CORPUSCULAR VOLUME 102.3 fl (82.0-101.0); MEAN PLATELET VOLUME 9.9 fl (7.4-10.4); MONOCYTE # 0.5 10^3/ul (0.3-0.9); MONOCYTES % 10.7 % (0.0-11.0); NEUTROPHILS % 39.8 % (39.0-77.0); PLATELET COUNT 195 10^3/UL (140-415); RED BLOOD COUNT 2.64 10^6/ul (4.20-5.40); RED CELL DISTRIBUTION WIDTH 13.5 % (11.5-14.5)
[2017-11-07] MEDS: PANTOPRAZOLE (EC) 40 MG TAB PO ×2 (06:17→17:29)
[2017-11-07 06:36] LABS: IRON 49 ug/dl (35-150)
[2017-11-07 06:49] LABS: % IRON SATURATION 23 % SAT (22-52); TOTAL IRON BINDING CAPACITY 216 ug/dl (241-421)
[2017-11-07] MEDS: SOD CHLORIDE 0.9% 1,000 ML IV (07:05)
[2017-11-07 07:07] LABS: ANION GAP 13 (8-16); BLOOD UREA NITROGEN 37 mg/dl (7-20); CALCIUM 8.7 mg/dl (8.4-10.2); CARBON DIOXIDE 29 mmol/L (21-31); CHLORIDE 106 mmol/L (97-110); CREATININE 2.12 mg/dl (0.44-1.00); GLUCOSE 80 mg/dl (70-220); MAGNESIUM 1.8 mg/dl (1.7-2.5); PHOSPHORUS 3.8 mg/dl (2.5-4.9); POTASSIUM 4.5 mmol/L (3.5-5.1); SODIUM 143 mmol/L (135-144)
[2017-11-07] MEDS: DOCUSATE SODIUM 100 MG CAP PO ×2 (10:06→22:01)
[2017-11-07] MEDS: ESCITALOPRAM 10 MG TAB PO (10:07)
[2017-11-07] MEDS: ISOSORBIDE MONONITRATE(SR)60 MG TAB PO (10:07)
[2017-11-07] MEDS: ATORVASTATIN 10 MG TAB PO (10:07)
[2017-11-07] MEDS: GABAPENTIN 100 MG CAP PO (10:08)
[2017-11-07] MEDS: hydrALAzine 20 MG INJ IV (16:27)
[2017-11-07 19:23] LABS: ADD UMIC YES; UR ASCORBIC ACID NEGATIVE (NEGATIVE); UR BACTERIA MANY /HPF (NONE SEEN); UR BILIRUBIN (Dip) NEGATIVE (NEGATIVE); UR BLOOD (Dip) NEGATIVE (NEGATIVE); UR CLARITY CLOUDY (CLEAR); UR COLOR YELLOW (YELLOW); UR GLUCOSE (Dip) NEGATIVE (NEGATIVE); UR KETONES (Dip) NEGATIVE (NEGATIVE); UR LEUKOCYTE ESTERASE (Dip) 3+ Leu/ul (NEGATIVE); UR MUCUS FEW /HPF (NONE SEEN); UR NITRITE (Dip) POSITIVE (NEGATIVE); UR RBC 2 /HPF (0-5); UR SPECIFIC GRAVITY (Dip) 1.008 (1.003-1.030); UR SQUAMOUS EPITHELIAL CELL FEW /HPF (FEW); UR TOTAL PROTEIN (Dip) 1+ mg/dl (NEGATIVE); UR UROBILINOGEN (Dip) NEGATIVE (NEGATIVE); UR WBC > 182 /HPF (0-5)
[2017-11-08] MEDS: SOD CHLORIDE 0.9% 1,000 ML IV (02:00)
[2017-11-08] MEDS: PANTOPRAZOLE (EC) 40 MG TAB PO (05:52)
[2017-11-08] MEDS: ATORVASTATIN 10 MG TAB PO (08:24)
[2017-11-08] MEDS: DOCUSATE SODIUM 100 MG CAP PO (08:24)
[2017-11-08] MEDS: ISOSORBIDE MONONITRATE(SR)60 MG TAB PO (08:24)
[2017-11-08] MEDS: ESCITALOPRAM 10 MG TAB PO (08:24)
== END 2017-11-08 10:13 | disposition home health service (06) | DRG 683 ==
LOC: E/R 18:00 → ICU 20:41 → 6WM 11-05 01:08
PROC: 5A1D70Z Performance of Urinary Filtration, Intermittent, Less than 6 Hours Per Day (ICD-10-PCS; principal; 2017-11-04)
DX: N17.9 Acute kidney failure, unspecified (principal); I50.42 Chronic combined systolic (congestive) and diastolic (congestive) heart failure; I13.2 Hypertensive heart and chronic kidney disease with heart failure and with stage 5 chronic kidney disease, or end stage renal disease; E11.22 Type 2 diabetes mellitus with diabetic chronic kidney disease; D53.1 Other megaloblastic anemias, not elsewhere classified; E87.5 Hyperkalemia; I25.5 Ischemic cardiomyopathy; R00.1 Bradycardia, unspecified; G51.0 Bell's palsy; F32.9 Major depressive disorder, single episode, unspecified; N18.5 Chronic kidney disease, stage 5; M25.511 Pain in right shoulder; Z99.2 Dependence on renal dialysis; Z79.4 Long term (current) use of insulin; Z79.84 Long term (current) use of oral hypoglycemic drugs
CPT/HCPCS: 36415; 70450; 70551; 71045; 76937; 80048; 80053; 80061; 81001; 82728; 82962; 83036; 83540; 83735; 83880; 84100; 84443; 84484; 85025; 85610; 87081; 87340; 90935; 93005; 93306; 93880; 94644; 96374; 96375; 97162; 99291-25

== ENCOUNTER 2018-01-11 13:49 | Inpatient (IN) | payer OTHER ==
[2018-01-11 19:12] LABS: ADD MAN DIFF? NO
[2018-01-11 19:15] LABS: BASOPHILS % 0.5 % (0.0-2.0); EOSINOPHILS # 0.2 10^3/ul (0.0-0.5); EOSINOPHILS % 2.5 % (0.0-7.0); HEMATOCRIT 32.3 % (37.0-47.0); HEMOGLOBIN 10.6 g/dl (12.0-16.0); LYMPHOCYTES # 1.8 10^3/ul (0.8-2.9); LYMPHOCYTES % 30.4 % (15.0-51.0); MEAN CORPUSCULAR HEMOGLOBIN 34.3 pg (29.0-33.0); MEAN CORPUSCULAR HGB CONC 32.8 g/dl (32.0-37.0); MEAN CORPUSCULAR VOLUME 104.5 fl (82.0-101.0); MEAN PLATELET VOLUME 9.3 fl (7.4-10.4); MONOCYTE # 0.6 10^3/ul (0.3-0.9); MONOCYTES % 9.8 % (0.0-11.0); NEUTROPHIL # 3.4 10^3/ul (1.6-7.5); NEUTROPHILS % 56.5 % (39.0-77.0); PLATELET COUNT 206 10^3/UL (140-415); RED BLOOD COUNT 3.09 10^6/ul (4.20-5.40); RED CELL DISTRIBUTION WIDTH 13.5 % (11.5-14.5)
[2018-01-11] MEDS: ALBUTEROL 0.5% (NEB) 2.5 MG/0.5 ML AMP INH (19:22)
[2018-01-11] MEDS: IPRATROPIUM (NEB) 0.5 MG/2.5 ML AMP INH (19:22)
[2018-01-11 19:34] LABS: ALANINE AMINOTRANSFERASE 26 IU/L (13-69); ALBUMIN 4.5 g/dl (3.3-4.9); ALBUMIN/GLOBULIN RATIO 1.36; ALKALINE PHOSPHATASE 124 IU/L (42-121); ANION GAP 11 (5-13); ASPARTATE AMINO TRANSFERASE 29 IU/L (15-46); BILIRUBIN,INDIRECT 0.1 mg/dl (0-1.1); BILIRUBIN,TOTAL 0.1 mg/dl (0.2-1.3); BLOOD UREA NITROGEN 27 mg/dl (7-20); CALCIUM 9.5 mg/dl (8.4-10.2); CARBON DIOXIDE 21 mmol/L (21-31); CHLORIDE 110 mmol/L (97-110); CREATININE 1.46 mg/dl (0.44-1.00); GLUCOSE 150 mg/dl (70-220); LIPASE 81 U/L (23-300); SODIUM 142 mmol/L (135-144); TOTAL PROTEIN 7.8 g/dl (6.1-8.1)
[2018-01-11 19:46] LABS: TROPONIN-I < 0.012 ng/ml (0.000-0.120)
[2018-01-11 19:47] LABS: INR 1.04; PROTIME 13.7 Sec (11.9-14.9); PT RATIO 1.1
[2018-01-11 19:48] LABS: PARTIAL THROMBOPLASTIN TIME 27.9 Sec (23.0-35.0)
[2018-01-11] MEDS: METHYLPREDNISOLONE 125 MG INJ IV (19:48)
[2018-01-11] MEDS: ASPIRIN 81 MG TAB PO (19:49)
[2018-01-11] MEDS: hydrALAzine 20 MG INJ IV (19:49)
[2018-01-11 20:13] LABS: ADD UMIC YES; UR ASCORBIC ACID NEGATIVE (NEGATIVE); UR BACTERIA FEW /HPF (NONE SEEN); UR BILIRUBIN (Dip) NEGATIVE (NEGATIVE); UR BLOOD (Dip) NEGATIVE (NEGATIVE); UR CLARITY SLIGHTLY CLOUDY (CLEAR); UR COLOR YELLOW (YELLOW); UR GLUCOSE (Dip) NEGATIVE (NEGATIVE); UR KETONES (Dip) NEGATIVE (NEGATIVE); UR LEUKOCYTE ESTERASE (Dip) TRACE Leu/ul (NEGATIVE); UR NITRITE (Dip) NEGATIVE (NEGATIVE); UR RBC 1 /HPF (0-5); UR TOTAL PROTEIN (Dip) 3+ mg/dl (NEGATIVE); UR UROBILINOGEN (Dip) NEGATIVE (NEGATIVE); UR WBC 20 /HPF (0-5)
[2018-01-11] MEDS: CEFTRIAXONE 1 GM/50 ML (PMX) 50 ML IVPB (21:53)
[2018-01-12] MEDS ORDERED: ALBUTEROL/IPRATROPIUM (NEB) 3 ML AMP HHN
[2018-01-12] MEDS ORDERED: ACETAMINOPHEN 325 MG TAB PO
[2018-01-12] MEDS ORDERED: ONDANSETRON 4 MG INJ IV
[2018-01-12] MEDS ORDERED: PROVENTIL HFA 6.7GM INHALER INH
[2018-01-12] MEDS ORDERED: NITROGLYCERIN (SL) 0.4 MG TAB SL
[2018-01-12] MEDS ORDERED: NACL 0.9% 3 ML SYG IV
[2018-01-12] MEDS: ACETAMINOPHEN 325 MG TAB PO (00:07)
[2018-01-12 00:49] LABS: CREATINE KINASE 72 IU/L (23-200)
[2018-01-12] MEDS: HYDROCODONE/APAP (5/325) TAB PO ×3 (00:59→20:22)
[2018-01-12 01:02] LABS: CK INDEX 1.3; CK-MB 0.97 ng/ml (0.0-2.4); TROPONIN-I 0.014 ng/ml (0.000-0.120)
[2018-01-12] MEDS: ALBUTEROL HFA 8 GM INHALER INH ×8 (05:00→20:16)
[2018-01-12] MEDS: PANTOPRAZOLE (EC) 40 MG TAB PO ×2 (05:20→17:29)
[2018-01-12 06:05] LABS: ADD MAN DIFF? NO
[2018-01-12 06:11] LABS: ABNORMAL IP MESSAGE 1; HEMATOCRIT 27.5 % (37.0-47.0); HEMOGLOBIN 9.1 g/dl (12.0-16.0); LYMPHOCYTES # 0.4 10^3/ul (0.8-2.9); MEAN CORPUSCULAR HEMOGLOBIN 34.9 pg (29.0-33.0); MEAN CORPUSCULAR HGB CONC 33.1 g/dl (32.0-37.0); MEAN CORPUSCULAR VOLUME 105.4 fl (82.0-101.0); MONOCYTES % 1.3 % (0.0-11.0); NEUTROPHIL # 2.6 10^3/ul (1.6-7.5); NEUTROPHILS % 85.4 % (39.0-77.0); PLATELET COUNT 191 10^3/UL (140-415); RED BLOOD COUNT 2.61 10^6/ul (4.20-5.40); RED CELL DISTRIBUTION WIDTH 13.3 % (11.5-14.5)
[2018-01-12 06:27] LABS: HEMOGLOBIN A1C 5.2 % (0-5.9)
[2018-01-12 06:30] LABS: POSITIVE DIFF @See below
[2018-01-12 06:47] LABS: CREATINE KINASE 80 IU/L (23-200)
[2018-01-12 07:00] LABS: CK-MB 0.78 ng/ml (0.0-2.4); TROPONIN-I < 0.012 ng/ml (0.000-0.120)
[2018-01-12 07:11] LABS: ALANINE AMINOTRANSFERASE 21 IU/L (13-69); ALBUMIN 3.6 g/dl (3.3-4.9); ALBUMIN/GLOBULIN RATIO 1.09; ALKALINE PHOSPHATASE 93 IU/L (42-121); ANION GAP 6 (5-13); ASPARTATE AMINO TRANSFERASE 22 IU/L (15-46); BILIRUBIN,INDIRECT 0.1 mg/dl (0-1.1); BILIRUBIN,TOTAL 0.1 mg/dl (0.2-1.3); BLOOD UREA NITROGEN 28 mg/dl (7-20); CALCIUM 8.9 mg/dl (8.4-10.2); CARBON DIOXIDE 21 mmol/L (21-31); CHLORIDE 114 mmol/L (97-110); GLUCOSE 194 mg/dl (70-220); POTASSIUM 5.8 mmol/L (3.5-5.1); SODIUM 141 mmol/L (135-144); TOTAL PROTEIN 6.9 g/dl (6.1-8.1)
[2018-01-12] MEDS ORDERED: HEPARIN 5,000 UNIT/0.5 ML VIAL ×2 (08:06→19:53)
[2018-01-12] MEDS: ASPIRIN (EC) 81 MG TAB PO (08:13)
[2018-01-12] MEDS: NA POLYST SULFON 15 GM/60 ML BTL PO (08:13)
[2018-01-12] MEDS: GABAPENTIN 300 MG CAP PO ×3 (08:13→20:15)
[2018-01-12] MEDS: NA BICARBONATE 650 MG TAB PO ×2 (08:13→20:14)
[2018-01-12] MEDS: ISOSORBIDE MONONITRATE(SR)60 MG TAB PO (08:13)
[2018-01-12] MEDS: AMLODIPINE 5 MG TAB PO ×2 (08:14→20:15)
[2018-01-12] MEDS: ESCITALOPRAM 10 MG TAB PO (08:14)
[2018-01-12] MEDS: ALLOPURINOL 100 MG TAB PO (08:14)
[2018-01-12] MEDS: HEPARIN 5,000 UNIT/1 ML VIAL SC ×2 (08:47→20:21)
[2018-01-12] MEDS ORDERED: NON-FORMULARY/PATIENT OWN MED (Omeprazole* 20 MG) PO (09:00)
[2018-01-12] MEDS: FOSFOMYCIN 3 GM PACKET PO (11:57)
[2018-01-12] MEDS: DOXAZOSIN 1 MG TAB PO (13:48)
[2018-01-12] MEDS: ATORVASTATIN 10 MG TAB PO (20:14)
[2018-01-12] MEDS: DOXAZOSIN 2 MG TAB PO (20:15)
[2018-01-13] MEDS: ALBUTEROL HFA 8 GM INHALER INH ×2 (01:00→05:13)
[2018-01-13] MEDS: PANTOPRAZOLE (EC) 40 MG TAB PO (05:11)
[2018-01-13 06:38] LABS: ANION GAP 5 (5-13); BLOOD UREA NITROGEN 26 mg/dl (7-20); CALCIUM 8.7 mg/dl (8.4-10.2); CARBON DIOXIDE 23 mmol/L (21-31); CHLORIDE 115 mmol/L (97-110); CREATININE 1.25 mg/dl (0.44-1.00); GLUCOSE 101 mg/dl (70-220); POTASSIUM 4.6 mmol/L (3.5-5.1); SODIUM 143 mmol/L (135-144)
[2018-01-13] MEDS ORDERED: HEPARIN 5,000 UNIT/0.5 ML VIAL (08:17)
[2018-01-13] MEDS: ESCITALOPRAM 10 MG TAB PO (08:21)
[2018-01-13] MEDS: ASPIRIN (EC) 81 MG TAB PO (08:21)
[2018-01-13] MEDS: NA BICARBONATE 650 MG TAB PO (08:21)
[2018-01-13] MEDS: ALLOPURINOL 100 MG TAB PO (08:21)
[2018-01-13] MEDS: GABAPENTIN 300 MG CAP PO ×2 (08:21→13:02)
[2018-01-13] MEDS: ISOSORBIDE MONONITRATE(SR)30 MG TAB PO (08:22)
[2018-01-13] MEDS: AMLODIPINE 5 MG TAB PO (08:22)
[2018-01-13] MEDS: HEPARIN 5,000 UNIT/1 ML VIAL SC (08:32)
== END 2018-01-13 17:17 | disposition home or self-care (01) | DRG 206 ==
LOC: E/R 13:49 → TEL 19:58
DX: M94.0 Chondrocostal junction syndrome [Tietze] (principal); I13.0 Hypertensive heart and chronic kidney disease with heart failure and stage 1 through stage 4 chronic kidney disease, or unspecified chronic kidney disease; N39.0 Urinary tract infection, site not specified; E11.22 Type 2 diabetes mellitus with diabetic chronic kidney disease; N18.3 Chronic kidney disease, stage 3 (moderate); E87.5 Hyperkalemia; I50.9 Heart failure, unspecified; I16.0 Hypertensive urgency; I65.21 Occlusion and stenosis of right carotid artery; G51.0 Bell's palsy; M10.9 Gout, unspecified; K57.30 Diverticulosis of large intestine without perforation or abscess without bleeding; Z79.82 Long term (current) use of aspirin; Z86.711 Personal history of pulmonary embolism
CPT/HCPCS: 36415; 71045; 80048; 80053; 81001; 82550; 82553; 83036; 83690; 83735; 84484; 85025; 85610; 85730; 87086; 87400; 93005; 93970; 93971; 94644; 94664; 96374; 96375; 99285-25

== ENCOUNTER 2018-04-05 15:35 | Inpatient (IN) | payer OTHER ==
[2018-04-05] MEDS: morphine 2 MG INJ IV ×2 (15:51→20:12)
[2018-04-05] MEDS: SOD CHLORIDE 0.9% 1,000 ML IV ×2 (15:51→17:18)
[2018-04-05] MEDS: ONDANSETRON 4 MG INJ IV (15:51)
[2018-04-05 15:52] LABS: ADD MAN DIFF? NO
[2018-04-05 15:57] LABS: BASOPHILS % 0.3 % (0.0-2.0); EOSINOPHILS % 0.3 % (0.0-7.0); HEMATOCRIT 30.7 % (37.0-47.0); HEMOGLOBIN 9.9 g/dl (12.0-16.0); LYMPHOCYTES # 2.3 10^3/ul (0.8-2.9); LYMPHOCYTES % 28.4 % (15.0-51.0); MEAN CORPUSCULAR HEMOGLOBIN 33.3 pg (29.0-33.0); MEAN CORPUSCULAR HGB CONC 32.2 g/dl (32.0-37.0); MEAN CORPUSCULAR VOLUME 103.4 fl (82.0-101.0); MEAN PLATELET VOLUME 9.3 fl (7.4-10.4); MONOCYTE # 0.7 10^3/ul (0.3-0.9); MONOCYTES % 8.9 % (0.0-11.0); NEUTROPHIL # 4.9 10^3/ul (1.6-7.5); NEUTROPHILS % 61.7 % (39.0-77.0); PLATELET COUNT 275 10^3/UL (140-415); RED BLOOD COUNT 2.97 10^6/ul (4.20-5.40); RED CELL DISTRIBUTION WIDTH 13.5 % (11.5-14.5)
[2018-04-05 16:16] LABS: ALANINE AMINOTRANSFERASE 12 IU/L (13-69); ALBUMIN 3.7 g/dl (3.3-4.9); ALBUMIN/GLOBULIN RATIO 0.94; ALKALINE PHOSPHATASE 98 IU/L (42-121); ANION GAP 7 (5-13); ASPARTATE AMINO TRANSFERASE 34 IU/L (15-46); BILIRUBIN,INDIRECT 0.3 mg/dl (0-1.1); BILIRUBIN,TOTAL 0.3 mg/dl (0.2-1.3); BLOOD UREA NITROGEN 37 mg/dl (7-20); CARBON DIOXIDE 16 mmol/L (21-31); CHLORIDE 119 mmol/L (97-110); CREATININE 1.89 mg/dl (0.44-1.00); GLUCOSE 99 mg/dl (70-220); LIPASE 50 U/L (23-300); POTASSIUM 5.6 mmol/L (3.5-5.1); SODIUM 142 mmol/L (135-144); TOTAL PROTEIN 7.6 g/dl (6.1-8.1)
[2018-04-05 16:26] LABS: TROPONIN-I 0.017 ng/ml (0.000-0.120)
[2018-04-05] MEDS: morphine 4 MG/ML VIAL IV (17:18)
[2018-04-05] MEDS: SOD CHLORIDE 0.9% 100 ML (17:34)
[2018-04-05] MEDS: IODIXANOL LOCM 100 ML BTL (17:34)
[2018-04-05 18:46] LABS: URINE BLOOD (Dip) POC Negative (NEGATIVE); URINE GLUCOSE (Dip) POC Negative (NEGATIVE); URINE KETONES (Dip) POC Negative (NEGATIVE); URINE LEUKOCYTE EST (Dip) POC Negative (NEGATIVE); URINE NITRITE (Dip) POC Negative (NEGATIVE); URINE TOTAL PROTEIN POC 3+ (NEGATIVE)
[2018-04-05 18:58] LABS: ADD UMIC YES; UR ASCORBIC ACID NEGATIVE (NEGATIVE); UR BACTERIA FEW /HPF (NONE SEEN); UR BILIRUBIN (Dip) NEGATIVE (NEGATIVE); UR BLOOD (Dip) NEGATIVE (NEGATIVE); UR CLARITY CLEAR (CLEAR); UR COLOR STRAW (YELLOW); UR GLUCOSE (Dip) NEGATIVE (NEGATIVE); UR KETONES (Dip) NEGATIVE (NEGATIVE); UR LEUKOCYTE ESTERASE (Dip) NEGATIVE Leu/ul (NEGATIVE); UR NITRITE (Dip) NEGATIVE (NEGATIVE); UR RBC 1 /HPF (0-5); UR SPECIFIC GRAVITY (Dip) 1.018 (1.003-1.030); UR TOTAL PROTEIN (Dip) 2+ mg/dl (NEGATIVE); UR UROBILINOGEN (Dip) NEGATIVE (NEGATIVE); UR WBC 2 /HPF (0-5)
[2018-04-05] MEDS: CEFTRIAXONE 1 GM/50 ML (PMX) 50 ML IVPB (19:14)
[2018-04-05] MEDS ORDERED: ACETAMINOPHEN 325 MG TAB PO ×2 (19:30→21:30)
[2018-04-05] MEDS ORDERED: ONDANSETRON 4 MG INJ IV ×3 (19:30→21:30)
[2018-04-05] MEDS ORDERED: morphine 4 MG/ML VIAL IV (21:00)
[2018-04-05] MEDS ORDERED: NACL 0.9% 3 ML SYG IV (21:30)
[2018-04-05] MEDS ORDERED: TIZANIDINE 4 MG TAB PO (21:30)
[2018-04-06] MEDS: HYDROCODONE/APAP (5/325) TAB PO ×3 (01:12→21:40)
[2018-04-06 05:26] LABS: ADD MAN DIFF? NO
[2018-04-06 05:30] LABS: WHITE BLOOD COUNT 4.8 10^3/ul (4.8-10.8)
[2018-04-06 05:30] LABS: BASOPHILS % 0.2 % (0.0-2.0); EOSINOPHILS # 0.1 10^3/ul (0.0-0.5); EOSINOPHILS % 1.7 % (0.0-7.0); HEMATOCRIT 29.1 % (37.0-47.0); HEMOGLOBIN 9.2 g/dl (12.0-16.0); LYMPHOCYTES # 0.9 10^3/ul (0.8-2.9); LYMPHOCYTES % 18.9 % (15.0-51.0); MEAN CORPUSCULAR HEMOGLOBIN 34.1 pg (29.0-33.0); MEAN CORPUSCULAR HGB CONC 31.6 g/dl (32.0-37.0); MEAN CORPUSCULAR VOLUME 107.8 fl (82.0-101.0); MEAN PLATELET VOLUME 9.6 fl (7.4-10.4); MONOCYTE # 0.3 10^3/ul (0.3-0.9); MONOCYTES % 5.6 % (0.0-11.0); NEUTROPHIL # 3.5 10^3/ul (1.6-7.5); PLATELET COUNT 257 10^3/UL (140-415); RED CELL DISTRIBUTION WIDTH 13.6 % (11.5-14.5)
[2018-04-06] MEDS: PANTOPRAZOLE (EC) 40 MG TAB PO ×2 (05:44→17:51)
[2018-04-06 05:48] LABS: HEMOGLOBIN A1C 5.1 % (0-5.9)
[2018-04-06 05:57] LABS: ALANINE AMINOTRANSFERASE 12 IU/L (13-69); ALBUMIN 2.8 g/dl (3.3-4.9); ALBUMIN/GLOBULIN RATIO 0.84; ALKALINE PHOSPHATASE 76 IU/L (42-121); ANION GAP 4 (5-13); ASPARTATE AMINO TRANSFERASE 25 IU/L (15-46); BLOOD UREA NITROGEN 34 mg/dl (7-20); CALCIUM 8.6 mg/dl (8.4-10.2); CARBON DIOXIDE 17 mmol/L (21-31); CHLORIDE 119 mmol/L (97-110); CHOL/HDL RATIO 3.3 RATIO; CHOLESTEROL 173 mg/dl (100-200); CREATININE 1.83 mg/dl (0.44-1.00); GLUCOSE 78 mg/dl (70-220); HDL CHOLESTEROL 52 mg/dl (33-92); LDL CHOLESTEROL,CALCULATED 99 mg/dl; MAGNESIUM 1.9 mg/dl (1.7-2.5); PHOSPHORUS 5.3 mg/dl (2.5-4.9); POTASSIUM 5.8 mmol/L (3.5-5.1); SODIUM 140 mmol/L (135-144); TOTAL PROTEIN 6.1 g/dl (6.1-8.1); TRIGLYCERIDES 112 mg/dl (0-149)
[2018-04-06 06:11] LABS: FREE THYROXINE INDEX (Calc) 2.33 ug/ml (0.65-3.89); T3 UPTAKE 40.9 % (23.5-40.5); T4 (THYROXINE) 5.7 ug/dl (5.5-11.0)
[2018-04-06] MEDS: ESCITALOPRAM 10 MG TAB PO (08:28)
[2018-04-06] MEDS: GABAPENTIN 300 MG CAP PO ×3 (08:29→20:28)
[2018-04-06] MEDS: AMLODIPINE 10 MG TAB PO (08:29)
[2018-04-06] MEDS: ASPIRIN 81 MG TAB PO (08:29)
[2018-04-06] MEDS: ISOSORBIDE MONONITRATE(SR)60 MG TAB PO (08:29)
[2018-04-06] MEDS: ALLOPURINOL 100 MG TAB PO (08:29)
[2018-04-06] MEDS: SODIUM POLYSTYRENE 15 GM KIT (POWDER + SORBITOL) PO (08:30)
[2018-04-06] MEDS ORDERED: hydrALAzine 20 MG INJ IV (12:00)
[2018-04-06 16:28] LABS: CREATININE,URINE RANDOM 151.84 mg/dl (20-320)
[2018-04-06 16:29] LABS: SODIUM,URINE RANDOM 46 mmol/L (30-90)
[2018-04-06 16:36] LABS: ADD UMIC YES; UR ASCORBIC ACID NEGATIVE (NEGATIVE); UR BACTERIA FEW /HPF (NONE SEEN); UR BILIRUBIN (Dip) NEGATIVE (NEGATIVE); UR BLOOD (Dip) NEGATIVE (NEGATIVE); UR CLARITY SLIGHTLY CLOUDY (CLEAR); UR COLOR YELLOW (YELLOW); UR GLUCOSE (Dip) NEGATIVE (NEGATIVE); UR KETONES (Dip) NEGATIVE (NEGATIVE); UR LEUKOCYTE ESTERASE (Dip) NEGATIVE Leu/ul (NEGATIVE); UR MUCUS FEW /HPF (NONE SEEN); UR NITRITE (Dip) NEGATIVE (NEGATIVE); UR RBC 11 /HPF (0-5); UR SPECIFIC GRAVITY (Dip) 1.041 (1.003-1.030); UR SQUAMOUS EPITHELIAL CELL MODERATE /HPF (FEW); UR TOTAL PROTEIN (Dip) 3+ mg/dl (NEGATIVE); UR UROBILINOGEN (Dip) NEGATIVE (NEGATIVE); UR WBC 4 /HPF (0-5)
[2018-04-06 16:45] LABS: ANION GAP 8 (5-13); BLOOD UREA NITROGEN 38 mg/dl (7-20); CALCIUM 8.9 mg/dl (8.4-10.2); CARBON DIOXIDE 16 mmol/L (21-31); CHLORIDE 115 mmol/L (97-110); CREATININE 2.22 mg/dl (0.44-1.00); GLUCOSE 100 mg/dl (70-220); POTASSIUM 5.4 mmol/L (3.5-5.1); SODIUM 139 mmol/L (135-144)
[2018-04-06] MEDS: CEFTRIAXONE 1 GM/50 ML (PMX) 50 ML IVPB (19:19)
[2018-04-06] MEDS: ATORVASTATIN 10 MG TAB PO (20:28)
[2018-04-07] MEDS: DIPHENHYDRAMINE 25 MG CAP PO (02:28)
[2018-04-07 04:57] LABS: ADD MAN DIFF? NO
[2018-04-07 05:07] LABS: WHITE BLOOD COUNT 7.9 10^3/ul (4.8-10.8)
[2018-04-07 05:07] LABS: BASOPHILS % 0.1 % (0.0-2.0); EOSINOPHILS # 0.2 10^3/ul (0.0-0.5); EOSINOPHILS % 2.7 % (0.0-7.0); HEMATOCRIT 27.3 % (37.0-47.0); HEMOGLOBIN 8.6 g/dl (12.0-16.0); LYMPHOCYTES # 0.7 10^3/ul (0.8-2.9); LYMPHOCYTES % 8.7 % (15.0-51.0); MEAN CORPUSCULAR HEMOGLOBIN 33.6 pg (29.0-33.0); MEAN CORPUSCULAR HGB CONC 31.5 g/dl (32.0-37.0); MEAN CORPUSCULAR VOLUME 106.6 fl (82.0-101.0); MEAN PLATELET VOLUME 9.6 fl (7.4-10.4); MONOCYTE # 0.3 10^3/ul (0.3-0.9); MONOCYTES % 3.5 % (0.0-11.0); NEUTROPHIL # 6.7 10^3/ul (1.6-7.5); NEUTROPHILS % 84.6 % (39.0-77.0); PLATELET COUNT 246 10^3/UL (140-415); RED BLOOD COUNT 2.56 10^6/ul (4.20-5.40); RED CELL DISTRIBUTION WIDTH 13.6 % (11.5-14.5)
[2018-04-07 05:32] LABS: AMMONIA < 9 umol/l (9-30)
[2018-04-07 05:41] LABS: ALANINE AMINOTRANSFERASE 19 IU/L (13-69); ALBUMIN 2.8 g/dl (3.3-4.9); ALBUMIN/GLOBULIN RATIO 0.87; ALKALINE PHOSPHATASE 75 IU/L (42-121); ANION GAP 3 (5-13); ASPARTATE AMINO TRANSFERASE 24 IU/L (15-46); BLOOD UREA NITROGEN 34 mg/dl (7-20); CALCIUM 8.4 mg/dl (8.4-10.2); CARBON DIOXIDE 18 mmol/L (21-31); CHLORIDE 117 mmol/L (97-110); CREATININE 2.15 mg/dl (0.44-1.00); GLUCOSE 94 mg/dl (70-220); SODIUM 138 mmol/L (135-144)
[2018-04-07] MEDS: PANTOPRAZOLE (EC) 40 MG TAB PO ×2 (06:02→18:04)
[2018-04-07 06:04] LABS: PHOSPHORUS 5.7 mg/dl (2.5-4.9)
[2018-04-07 06:16] LABS: URIC ACID 4.4 mg/dl (3.1-7.9)
[2018-04-07] MEDS: ESCITALOPRAM 10 MG TAB PO (09:39)
[2018-04-07] MEDS: ALLOPURINOL 100 MG TAB PO (09:39)
[2018-04-07] MEDS: ASPIRIN 81 MG TAB PO (09:39)
[2018-04-07 09:40] LABS: IRON 36 ug/dl (35-150)
[2018-04-07] MEDS: GABAPENTIN 300 MG CAP PO ×3 (09:40→20:39)
[2018-04-07] MEDS: AMLODIPINE 10 MG TAB PO (09:40)
[2018-04-07] MEDS: ISOSORBIDE MONONITRATE(SR)60 MG TAB PO (09:40)
[2018-04-07 09:49] LABS: % IRON SATURATION 19 % SAT (22-52); TOTAL IRON BINDING CAPACITY 188 ug/dl (241-421)
[2018-04-07 10:24] LABS: HEMATOCRIT 27.8 % (37.0-47.0); HEMOGLOBIN 8.9 g/dl (12.0-16.0); RETICULOCYTE COUNT # 0.083 X10^6 (0.020-0.110); RETICULOCYTE COUNT % 3.2 % (0.5-1.5); RETICULOCYTE RBC 2.63
[2018-04-07] MEDS: HYDROCODONE/APAP (5/325) TAB PO (19:39)
[2018-04-07] MEDS: CEFTRIAXONE 1 GM/50 ML (PMX) 50 ML IVPB (19:40)
[2018-04-07] MEDS: ATORVASTATIN 10 MG TAB PO (20:39)
[2018-04-08 05:38] LABS: ADD MAN DIFF? NO
[2018-04-08] MEDS: PANTOPRAZOLE (EC) 40 MG TAB PO ×2 (05:43→18:27)
[2018-04-08 05:45] LABS: EOSINOPHILS # 0.2 10^3/ul (0.0-0.5); EOSINOPHILS % 3.5 % (0.0-7.0); HEMATOCRIT 23.6 % (37.0-47.0); HEMOGLOBIN 7.5 g/dl (12.0-16.0); LYMPHOCYTES # 0.9 10^3/ul (0.8-2.9); MEAN CORPUSCULAR HEMOGLOBIN 33.3 pg (29.0-33.0); MEAN CORPUSCULAR HGB CONC 31.8 g/dl (32.0-37.0); MEAN CORPUSCULAR VOLUME 104.9 fl (82.0-101.0); MEAN PLATELET VOLUME 9.5 fl (7.4-10.4); MONOCYTE # 0.4 10^3/ul (0.3-0.9); MONOCYTES % 5.2 % (0.0-11.0); NEUTROPHIL # 5.3 10^3/ul (1.6-7.5); PLATELET COUNT 243 10^3/UL (140-415); RED BLOOD COUNT 2.25 10^6/ul (4.20-5.40); RED CELL DISTRIBUTION WIDTH 13.5 % (11.5-14.5)
[2018-04-08 05:45] LABS: WHITE BLOOD COUNT 6.8 10^3/ul (4.8-10.8)
[2018-04-08 06:25] LABS: ANION GAP 6 (5-13); BLOOD UREA NITROGEN 35 mg/dl (7-20); CALCIUM 8.2 mg/dl (8.4-10.2); CARBON DIOXIDE 17 mmol/L (21-31); CHLORIDE 117 mmol/L (97-110); CREATININE 2.13 mg/dl (0.44-1.00); GLUCOSE 86 mg/dl (70-220); MAGNESIUM 2.1 mg/dl (1.7-2.5); PHOSPHORUS 4.5 mg/dl (2.5-4.9); POTASSIUM 4.7 mmol/L (3.5-5.1); SODIUM 140 mmol/L (135-144)
[2018-04-08] MEDS: ESCITALOPRAM 10 MG TAB PO (08:21)
[2018-04-08] MEDS: GABAPENTIN 300 MG CAP PO ×3 (08:21→21:22)
[2018-04-08] MEDS: ASPIRIN 81 MG TAB PO (08:21)
[2018-04-08] MEDS: AMLODIPINE 10 MG TAB PO (08:21)
[2018-04-08] MEDS: ALLOPURINOL 100 MG TAB PO (08:21)
[2018-04-08] MEDS: ISOSORBIDE MONONITRATE(SR)60 MG TAB PO (08:21)
[2018-04-08] MEDS: HYDROCODONE/APAP (5/325) TAB PO (08:28)
[2018-04-08] MEDS: HEPARIN 5,000 UNIT/1 ML VIAL SC ×2 (12:34→21:21)
[2018-04-08] MEDS: SOD FERRIC GLUC COMPLX 125 MG in SOD CHLORIDE 0.9% 100 ML IVPB (13:50)
[2018-04-08] MEDS ORDERED: DIPHENHYDRAMINE 25 MG CAP PO (15:30)
[2018-04-08] MEDS: BETAMET NA PHOS/AC(6 MG/ML) 5ML INJ INJ (15:43)
[2018-04-08] MEDS: BUPIVACAINE 0.5%/EPI (SDV) 30 ML INJ INJ (15:45)
[2018-04-08 17:46] LABS: CREATININE, RANDOM URINE 134 mg/dL (20-275); MICROALBUMIN/CREATININE RATIO 2082 (<30)
[2018-04-08] MEDS: DIPHENHYDRAMINE 2.5 MG/ML 5ML CUP PO (18:27)
[2018-04-08] MEDS: NIFEdipine (XL) 60 MG TAB PO (21:22)
[2018-04-08] MEDS: ATORVASTATIN 10 MG TAB PO (21:25)
[2018-04-09] MEDS: PANTOPRAZOLE (EC) 40 MG TAB PO ×2 (05:36→18:56)
[2018-04-09 05:42] LABS: ABNORMAL IP MESSAGE 1; HEMATOCRIT 24.9 % (37.0-47.0); HEMOGLOBIN 8.2 g/dl (12.0-16.0); MEAN CORPUSCULAR HEMOGLOBIN 33.7 pg (29.0-33.0); MEAN CORPUSCULAR HGB CONC 32.9 g/dl (32.0-37.0); MEAN CORPUSCULAR VOLUME 102.5 fl (82.0-101.0); MEAN PLATELET VOLUME 9.5 fl (7.4-10.4); PLATELET COUNT 283 10^3/UL (140-415); RED BLOOD COUNT 2.43 10^6/ul (4.20-5.40); RED CELL DISTRIBUTION WIDTH 13.2 % (11.5-14.5)
[2018-04-09 05:42] LABS: WHITE BLOOD COUNT 3.5 10^3/ul (4.8-10.8)
[2018-04-09 05:46] LABS: POSITIVE DIFF @See below
[2018-04-09 05:47] LABS: ADD MAN DIFF? YES
[2018-04-09 06:20] LABS: ANION GAP 6 (5-13); BLOOD UREA NITROGEN 40 mg/dl (7-20); CALCIUM 8.6 mg/dl (8.4-10.2); CARBON DIOXIDE 16 mmol/L (21-31); CHLORIDE 116 mmol/L (97-110); CREATININE 2.11 mg/dl (0.44-1.00); GLUCOSE 202 mg/dl (70-220); MAGNESIUM 2.2 mg/dl (1.7-2.5); POTASSIUM 5.5 mmol/L (3.5-5.1); SODIUM 138 mmol/L (135-144)
[2018-04-09 07:07] LABS: ANISOCYTOSIS 1+ (0-0); BAND NEUTROPHILS #M 0.2 10^3/ul (0.0-0.6); BAND NEUTROPHILS % (M) 7 % (0-4); BURR CELLS 1+ (0-0); LYMPHOCYTES #M 0.5 10^3/ul (0.8-2.9); LYMPHOCYTES % (M) 15 % (15-51); PLATELET ESTIMATE NORMAL; POIKILOCYTOSIS 1+ (0-0); POLYCHROMASIA 1+ (0-0); SEG NEUT #M 2.7 10^3/ul (1.6-7.5); SEGMENTED NEUTROPHILS (M) % 78 % (39-77); SMUDGE%M 2 % (0-0)
[2018-04-09] MEDS: GABAPENTIN 300 MG CAP PO ×3 (08:53→20:41)
[2018-04-09] MEDS: ESCITALOPRAM 10 MG TAB PO (08:53)
[2018-04-09] MEDS: ASPIRIN 81 MG TAB PO (08:53)
[2018-04-09] MEDS: ALLOPURINOL 100 MG TAB PO (08:54)
[2018-04-09] MEDS: ISOSORBIDE MONONITRATE(SR)60 MG TAB PO (08:55)
[2018-04-09] MEDS: NIFEdipine (XL) 60 MG TAB PO ×2 (08:55→20:42)
[2018-04-09] MEDS: HEPARIN 5,000 UNIT/1 ML VIAL SC ×2 (09:02→20:43)
[2018-04-09 11:38] LABS: ANION GAP 8 (5-13); BLOOD UREA NITROGEN 43 mg/dl (7-20); CALCIUM 8.9 mg/dl (8.4-10.2); CARBON DIOXIDE 16 mmol/L (21-31); CHLORIDE 113 mmol/L (97-110); CREATININE 1.95 mg/dl (0.44-1.00); GLUCOSE 255 mg/dl (70-220); SODIUM 137 mmol/L (135-144)
[2018-04-09] MEDS: SODIUM POLYSTYRENE 15 GM KIT (POWDER + SORBITOL) PO (12:00)
[2018-04-09] MEDS: SOD FERRIC GLUC COMPLX 125 MG in SOD CHLORIDE 0.9% 100 ML IVPB (13:13)
[2018-04-09 15:55] LABS: POTASSIUM 5.3 mmol/L (3.5-5.1)
[2018-04-09] MEDS: HYDROCODONE/APAP (5/325) TAB PO (19:06)
[2018-04-09] MEDS: ATORVASTATIN 10 MG TAB PO (20:42)
[2018-04-09] MEDS: CITRIC ACID/NA CITRATE 30 ML CUP PO (23:04)
== END 2018-04-09 23:45 | DRG 557 ==
LOC: E/R 15:35 → 2NE 19:21
PROVIDERS: Internal Medicine
DX: M70.62 Trochanteric bursitis, left hip (principal); N18.6 End stage renal disease; N17.9 Acute kidney failure, unspecified; E87.2 Acidosis; I12.0 Hypertensive chronic kidney disease with stage 5 chronic kidney disease or end stage renal disease; R65.10 Systemic inflammatory response syndrome (SIRS) of non-infectious origin without acute organ dysfunction; M70.61 Trochanteric bursitis, right hip; K57.30 Diverticulosis of large intestine without perforation or abscess without bleeding; E11.22 Type 2 diabetes mellitus with diabetic chronic kidney disease; I12.9 Hypertensive chronic kidney disease with stage 1 through stage 4 chronic kidney disease, or unspecified chronic kidney disease; E87.5 Hyperkalemia; M10.9 Gout, unspecified; I51.7 Cardiomegaly; F32.9 Major depressive disorder, single episode, unspecified; F41.9 Anxiety disorder, unspecified; E11.40 Type 2 diabetes mellitus with diabetic neuropathy, unspecified; E83.89 Other disorders of mineral metabolism; K44.9 Diaphragmatic hernia without obstruction or gangrene; K76.0 Fatty (change of) liver, not elsewhere classified; M47.896 Other spondylosis, lumbar region; D63.1 Anemia in chronic kidney disease; Z99.2 Dependence on renal dialysis; R10.9 Unspecified abdominal pain; E11.65 Type 2 diabetes mellitus with hyperglycemia; G51.0 Bell's palsy; I25.10 Atherosclerotic heart disease of native coronary artery without angina pectoris; I70.0 Atherosclerosis of aorta
CPT/HCPCS: 36415; 71045; 72148; 72192; 73721; 74176; 75635; 80048; 80053; 80061; 81001; 81003; 82043; 82140; 83036; 83540; 83690; 83735; 84100; 84132; 84155; 84300; 84436; 84479; 84484; 84560; 85014; 85018; 85025; 85045; 87086; 93005; 96374; 96375; 96376; 97110; 97116; 97162; 97530; 99285-25

== ENCOUNTER 2018-11-06 21:42 | Inpatient (IN) | payer OTHER ==
[2018-11-06] MEDS: SOD CHLORIDE 0.9% 500 ML IV (22:14)
[2018-11-06] MEDS: KETOROLAC 15 MG INJ IV (22:14)
[2018-11-06 22:25] LABS: ADD MAN DIFF? NO
[2018-11-06 22:34] LABS: BASOPHILS % 0.4 % (0.0-2.0); EOSINOPHILS # 0.1 10^3/ul (0.0-0.5); EOSINOPHILS % 2.2 % (0.0-7.0); HEMATOCRIT 27.6 % (37.0-47.0); HEMOGLOBIN 8.4 g/dl (12.0-16.0); LYMPHOCYTES % 20.2 % (15.0-51.0); MEAN CORPUSCULAR HGB CONC 30.4 g/dl (32.0-37.0); MEAN PLATELET VOLUME 9.8 fl (7.4-10.4); MONOCYTE # 0.3 10^3/ul (0.3-0.9); MONOCYTES % 6.7 % (0.0-11.0); NEUTROPHIL # 3.4 10^3/ul (1.6-7.5); NEUTROPHILS % 70.1 % (39.0-77.0); PLATELET COUNT 242 10^3/UL (140-415); RED CELL DISTRIBUTION WIDTH 14.6 % (11.5-14.5)
[2018-11-06 22:34] LABS: WHITE BLOOD COUNT 4.9 10^3/ul (4.8-10.8)
[2018-11-06 23:01] LABS: ALANINE AMINOTRANSFERASE 16 IU/L (13-69); ALBUMIN 3.5 g/dl (3.3-4.9); ALBUMIN/GLOBULIN RATIO 0.94; ALKALINE PHOSPHATASE 92 IU/L (42-121); ANION GAP 5 (5-13); ASPARTATE AMINO TRANSFERASE 25 IU/L (15-46); BILIRUBIN,INDIRECT 0.1 mg/dl (0-1.1); BILIRUBIN,TOTAL 0.1 mg/dl (0.2-1.3); BLOOD UREA NITROGEN 49 mg/dl (7-20); CALCIUM 8.7 mg/dl (8.4-10.2); CARBON DIOXIDE 13 mmol/L (21-31); CHLORIDE 120 mmol/L (97-110); CREATININE 2.61 mg/dl (0.44-1.00); GLUCOSE 93 mg/dl (70-220); LIPASE 72 U/L (23-300); SODIUM 138 mmol/L (135-144); TOTAL PROTEIN 7.2 g/dl (6.1-8.1)
[2018-11-06 23:05] LABS: ADD UMIC YES; UR ASCORBIC ACID NEGATIVE (NEGATIVE); UR BACTERIA MANY /HPF (NONE SEEN); UR BILIRUBIN (Dip) NEGATIVE (NEGATIVE); UR BLOOD (Dip) 1+ mg/dL (NEGATIVE); UR CLARITY SLIGHTLY CLOUDY (CLEAR); UR COLOR YELLOW (YELLOW); UR GLUCOSE (Dip) NEGATIVE (NEGATIVE); UR KETONES (Dip) NEGATIVE (NEGATIVE); UR LEUKOCYTE ESTERASE (Dip) 1+ Leu/ul (NEGATIVE); UR MUCUS FEW /HPF (NONE SEEN); UR NITRITE (Dip) POSITIVE (NEGATIVE); UR RBC 4 /HPF (0-5); UR SPECIFIC GRAVITY (Dip) 1.013 (1.003-1.030); UR TOTAL PROTEIN (Dip) 3+ mg/dl (NEGATIVE); UR UROBILINOGEN (Dip) NEGATIVE (NEGATIVE); UR WBC 64 /HPF (0-5)
[2018-11-06 23:09] LABS: POTASSIUM 7.6 mmol/L (3.5-5.1)
[2018-11-06 23:12] LABS: TROPONIN-I < 0.012 ng/ml (0.000-0.120)
[2018-11-06] MEDS: hydrALAzine 20 MG INJ IV (23:19)
[2018-11-06] MEDS: DEXTROSE 50% 50 ML SYRINGE IV (23:25)
[2018-11-06] MEDS: CEFTRIAXONE 1 GM/50 ML (PMX) 50 ML IVPB (23:25)
[2018-11-06] MEDS: INSULIN REGULAR, HUMAN 100 UNIT/1 ML 3ML VIAL IVP (23:26)
[2018-11-06] MEDS: ALBUTEROL 0.5% (NEB) 2.5 MG/0.5 ML AMP INH (23:27)
[2018-11-06] MEDS ORDERED: DEXTROSE 50% 50 ML SYRINGE IV (23:30)
[2018-11-06] MEDS ORDERED: ATROPINE 1 MG/10 ML SYRINGE IV (23:30)
[2018-11-06] MEDS ORDERED: ONDANSETRON 4 MG INJ IV (23:30)
[2018-11-06] MEDS: NA BICARBONATE 8.4% 50 ML SYG IV (23:46)
[2018-11-06] MEDS: CALCIUM GLUCONATE 10% 2 GM in DEXTROSE 5% 100 ML IVPB (23:47)
[2018-11-07] MEDS ORDERED: TIZANIDINE 4 MG TAB PO (00:30)
[2018-11-07] MEDS: ACETAMINOPHEN 650MG/20.3ML CUP PO (01:58)
[2018-11-07] MEDS: hydrALAzine 20 MG INJ IV ×5 (01:58→20:26)
[2018-11-07] MEDS: FUROSEMIDE 40 MG INJ IV (02:07)
[2018-11-07 02:26] LABS: ANION GAP 6 (5-13); BLOOD UREA NITROGEN 46 mg/dl (7-20); CALCIUM 8.9 mg/dl (8.4-10.2); CARBON DIOXIDE 11 mmol/L (21-31); CHLORIDE 122 mmol/L (97-110); CREATININE 2.44 mg/dl (0.44-1.00); GLUCOSE 57 mg/dl (70-220); POTASSIUM 5.6 mmol/L (3.5-5.1); SODIUM 139 mmol/L (135-144)
[2018-11-07 02:40] LABS: PHOSPHORUS 4.2 mg/dl (2.5-4.9)
[2018-11-07] MEDS: SOD CHLORIDE 0.9% 500 ML IV (02:57)
[2018-11-07] MEDS: PANTOPRAZOLE 40 MG INJ IV (06:00)
[2018-11-07] MEDS: niCARdipine-NS 0.1MG/ML DRIP 200 ML IV (06:14)
[2018-11-07 08:43] LABS: ADD MAN DIFF? NO
[2018-11-07 08:47] LABS: BASOPHILS % 0.4 % (0.0-2.0); EOSINOPHILS % 0.6 % (0.0-7.0); HEMATOCRIT 26.5 % (37.0-47.0); LYMPHOCYTES # 1.2 10^3/ul (0.8-2.9); LYMPHOCYTES % 23.2 % (15.0-51.0); MEAN CORPUSCULAR HEMOGLOBIN 34.2 pg (29.0-33.0); MEAN CORPUSCULAR HGB CONC 30.2 g/dl (32.0-37.0); MEAN CORPUSCULAR VOLUME 113.2 fl (82.0-101.0); MEAN PLATELET VOLUME 9.8 fl (7.4-10.4); MONOCYTE # 0.4 10^3/ul (0.3-0.9); MONOCYTES % 7.9 % (0.0-11.0); NEUTROPHIL # 3.5 10^3/ul (1.6-7.5); NEUTROPHILS % 67.5 % (39.0-77.0); PLATELET COUNT 218 10^3/UL (140-415); RED BLOOD COUNT 2.34 10^6/ul (4.20-5.40); RED CELL DISTRIBUTION WIDTH 14.9 % (11.5-14.5)
[2018-11-07 08:47] LABS: WHITE BLOOD COUNT 5.2 10^3/ul (4.8-10.8)
[2018-11-07] MEDS ORDERED: NON-FORMULARY/PATIENT OWN MED (Omeprazole* 20 MG) PO (09:00)
[2018-11-07] MEDS ORDERED: MULTIVITAMIN PO (09:00)
[2018-11-07 09:02] LABS: HEMOGLOBIN A1C 5.1 % (0-5.9)
[2018-11-07 09:06] LABS: ALANINE AMINOTRANSFERASE 10 IU/L (13-69); ALBUMIN 3.1 g/dl (3.3-4.9); ALBUMIN/GLOBULIN RATIO 0.91; ALKALINE PHOSPHATASE 86 IU/L (42-121); ANION GAP 6 (5-13); ASPARTATE AMINO TRANSFERASE 21 IU/L (15-46); BILIRUBIN,INDIRECT 0.1 mg/dl (0-1.1); BILIRUBIN,TOTAL 0.1 mg/dl (0.2-1.3); BLOOD UREA NITROGEN 49 mg/dl (7-20); CALCIUM 8.9 mg/dl (8.4-10.2); CARBON DIOXIDE 13 mmol/L (21-31); CHLORIDE 121 mmol/L (97-110); CHOL/HDL RATIO 2.6 RATIO; CHOLESTEROL 144 mg/dl (100-200); CREATININE 2.45 mg/dl (0.44-1.00); GLUCOSE 96 mg/dl (70-220); HDL CHOLESTEROL 55 mg/dl (33-92); LDL CHOLESTEROL,CALCULATED 76 mg/dl; PHOSPHORUS 4.8 mg/dl (2.5-4.9); SODIUM 140 mmol/L (135-144); TOTAL PROTEIN 6.5 g/dl (6.1-8.1); TRIGLYCERIDES 63 mg/dl (0-149)
[2018-11-07 09:08] LABS: INR 1.24; PROTIME 15.7 Sec (11.9-14.9); PT RATIO 1.2
[2018-11-07 09:17] LABS: POTASSIUM 6.4 mmol/L (3.5-5.1)
[2018-11-07] MEDS: ASPIRIN 81 MG TAB PO (09:47)
[2018-11-07] MEDS: AMLODIPINE 10 MG TAB PO (09:48)
[2018-11-07] MEDS: PANTOPRAZOLE (EC) 40 MG TAB PO ×2 (09:48→18:13)
[2018-11-07] MEDS: MULTIVITAMINS THERAPEUTIC TAB PO (09:48)
[2018-11-07] MEDS: HEPARIN 5,000 UNIT/1 ML VIAL SC ×3 (09:53→18:24)
[2018-11-07 10:04] LABS: B-TYPE NATRIURETIC PEPTIDE 36500 PG/ML (0-450)
[2018-11-07 12:28] LABS: PARATHYROID HORMONE 144.3 pg/ml (24.0-73.0)
[2018-11-07] MEDS: BUMETANIDE 12 MG in DEXTROSE 5% 72 ML IV (12:39)
[2018-11-07] MEDS: NA POLYST SULFON 15 GM/60 ML BTL PO ×2 (12:59→18:44)
[2018-11-07 13:22] LABS: FOLATE 11.3 ng/ml (2.8-20.0)
[2018-11-07] MEDS: ALBUTEROL 0.5% (NEB) 2.5 MG/0.5 ML AMP INH (15:42)
[2018-11-07] MEDS: NA BICARBONATE 8.4% 50 ML SYG IV (15:45)
[2018-11-07] MEDS: DEXTROSE 50% 50 ML SYRINGE IV (15:46)
[2018-11-07] MEDS: INSULIN REGULAR, HUMAN 100 UNIT/1 ML 3ML VIAL IVP (15:51)
[2018-11-07 17:50] LABS: CREATINE KINASE 60 IU/L (23-200)
[2018-11-07 18:04] LABS: CK INDEX 2.5; CK-MB 1.48 ng/ml (0.0-2.4); TROPONIN-I 0.014 ng/ml (0.000-0.120)
[2018-11-07 18:15] LABS: ANION GAP 8 (5-13); BLOOD UREA NITROGEN 48 mg/dl (7-20); CALCIUM 8.8 mg/dl (8.4-10.2); CARBON DIOXIDE 15 mmol/L (21-31); CHLORIDE 119 mmol/L (97-110); CREATININE 2.35 mg/dl (0.44-1.00); GLUCOSE 85 mg/dl (70-220); POTASSIUM 5.9 mmol/L (3.5-5.1); SODIUM 142 mmol/L (135-144)
[2018-11-07 19:38] LABS: B-TYPE NATRIURETIC PEPTIDE 42400 PG/ML (0-450)
[2018-11-07] MEDS: GABAPENTIN 300 MG CAP PO (20:26)
[2018-11-07] MEDS: ATORVASTATIN 10 MG TAB PO (20:27)
[2018-11-07] MEDS: HYDROCODONE/APAP (5/325) TAB PO (20:27)
[2018-11-07] MEDS: CEFTRIAXONE 1 GM/NS 50 ML IVPB (20:31)
[2018-11-07] MEDS: SODIUM BICARBONATE (IV ADD) 100 MEQ in DEXTROSE 5% 1,000 ML IV (22:27)
[2018-11-07] MEDS: BUMETANIDE 2 MG in DEXTROSE 5% 17 ML IV (22:28)
[2018-11-08] MEDS: ACETAMINOPHEN 650MG/20.3ML CUP PO (00:44)
[2018-11-08 01:17] LABS: CREATINE KINASE 49 IU/L (23-200)
[2018-11-08 01:32] LABS: CK INDEX 2.7; CK-MB 1.34 ng/ml (0.0-2.4); TROPONIN-I 0.023 ng/ml (0.000-0.120)
[2018-11-08] MEDS: HYDROCODONE/APAP (5/325) TAB PO (02:55)
[2018-11-08 05:01] LABS: ADD MAN DIFF? NO
[2018-11-08 05:04] LABS: WHITE BLOOD COUNT 5.8 10^3/ul (4.8-10.8)
[2018-11-08 05:04] LABS: BASOPHILS % 0.3 % (0.0-2.0); EOSINOPHILS # 0.3 10^3/ul (0.0-0.5); EOSINOPHILS % 4.5 % (0.0-7.0); HEMATOCRIT 24.9 % (37.0-47.0); HEMOGLOBIN 7.8 g/dl (12.0-16.0); LYMPHOCYTES # 1.3 10^3/ul (0.8-2.9); LYMPHOCYTES % 21.9 % (15.0-51.0); MEAN CORPUSCULAR HEMOGLOBIN 34.4 pg (29.0-33.0); MEAN CORPUSCULAR HGB CONC 31.3 g/dl (32.0-37.0); MEAN CORPUSCULAR VOLUME 109.7 fl (82.0-101.0); MEAN PLATELET VOLUME 9.7 fl (7.4-10.4); MONOCYTE # 0.5 10^3/ul (0.3-0.9); MONOCYTES % 8.1 % (0.0-11.0); NEUTROPHIL # 3.8 10^3/ul (1.6-7.5); NEUTROPHILS % 64.9 % (39.0-77.0); PLATELET COUNT 215 10^3/UL (140-415); RED BLOOD COUNT 2.27 10^6/ul (4.20-5.40); RED CELL DISTRIBUTION WIDTH 14.9 % (11.5-14.5)
[2018-11-08 05:36] LABS: ANION GAP 8 (5-13); BLOOD UREA NITROGEN 42 mg/dl (7-20); CALCIUM 8.1 mg/dl (8.4-10.2); CARBON DIOXIDE 20 mmol/L (21-31); CHLORIDE 112 mmol/L (97-110); GLUCOSE 97 mg/dl (70-220); POTASSIUM 5.3 mmol/L (3.5-5.1); SODIUM 140 mmol/L (135-144)
[2018-11-08 05:38] LABS: CREATINE KINASE 50 IU/L (23-200)
[2018-11-08 05:50] LABS: CK INDEX 2.9; CK-MB 1.47 ng/ml (0.0-2.4); TROPONIN-I 0.031 ng/ml (0.000-0.120)
[2018-11-08] MEDS: PANTOPRAZOLE (EC) 40 MG TAB PO ×2 (05:58→18:17)
[2018-11-08 05:59] LABS: PHOSPHORUS 4.7 mg/dl (2.5-4.9)
[2018-11-08] MEDS: HEPARIN 5,000 UNIT/1 ML VIAL SC ×2 (06:02→18:26)
[2018-11-08] MEDS: hydrALAzine 20 MG INJ IV (08:54)
[2018-11-08] MEDS ORDERED: BUMETANIDE 1 MG INJ IV (09:00)
[2018-11-08] MEDS: GABAPENTIN 300 MG CAP PO ×3 (09:21→22:57)
[2018-11-08] MEDS: BUMETANIDE 2 MG in DEXTROSE 5% 17 ML IV ×2 (09:21→21:21)
[2018-11-08] MEDS: MULTIVITAMINS THERAPEUTIC TAB PO (09:21)
[2018-11-08] MEDS: AMLODIPINE 10 MG TAB PO (09:21)
[2018-11-08] MEDS: ESCITALOPRAM 10 MG TAB PO (09:22)
[2018-11-08] MEDS: NA POLYST SULFON 15 GM/60 ML BTL PO (09:22)
[2018-11-08] MEDS: ASPIRIN 81 MG TAB PO (09:22)
[2018-11-08] MEDS: ALLOPURINOL 100 MG TAB PO (09:22)
[2018-11-08] MEDS: ISOSORBIDE MONONITRATE(SR)30 MG TAB PO (09:22)
[2018-11-08] MEDS ORDERED: clonAZEPAM 0.5 MG TAB PO (10:30)
[2018-11-08] MEDS: clonAZEPAM 0.5 MG TAB PO (13:07)
[2018-11-08 13:11] LABS: POTASSIUM 4.3 mmol/L (3.5-5.1)
[2018-11-08] MEDS: DOXAZOSIN 2 MG TAB PO ×2 (13:35→22:58)
[2018-11-08] MEDS: CEFTRIAXONE 1 GM/NS 50 ML IVPB (21:09)
[2018-11-08] MEDS: ATORVASTATIN 10 MG TAB PO (22:58)
[2018-11-08 23:23] LABS: UR MUCUS FEW /HPF (NONE SEEN); UR RBC 6 /HPF (0-5); UR SQUAMOUS EPITHELIAL CELL FEW /HPF (FEW); UR WBC 15 /HPF (0-5)
[2018-11-08 23:24] LABS: SODIUM,URINE RANDOM 107 mmol/L (30-90)
[2018-11-09 05:00] LABS: ADD MAN DIFF? NO
[2018-11-09 05:12] LABS: WHITE BLOOD COUNT 4.7 10^3/ul (4.8-10.8)
[2018-11-09 05:12] LABS: BASOPHILS % 0.4 % (0.0-2.0); EOSINOPHILS # 0.3 10^3/ul (0.0-0.5); EOSINOPHILS % 6.3 % (0.0-7.0); HEMATOCRIT 22.8 % (37.0-47.0); HEMOGLOBIN 7.3 g/dl (12.0-16.0); LYMPHOCYTES # 1.5 10^3/ul (0.8-2.9); LYMPHOCYTES % 32.3 % (15.0-51.0); MEAN CORPUSCULAR HEMOGLOBIN 34.4 pg (29.0-33.0); MEAN CORPUSCULAR VOLUME 107.5 fl (82.0-101.0); MEAN PLATELET VOLUME 9.7 fl (7.4-10.4); MONOCYTE # 0.4 10^3/ul (0.3-0.9); MONOCYTES % 8.5 % (0.0-11.0); NEUTROPHIL # 2.5 10^3/ul (1.6-7.5); NEUTROPHILS % 52.1 % (39.0-77.0); PLATELET COUNT 196 10^3/UL (140-415); RED BLOOD COUNT 2.12 10^6/ul (4.20-5.40); RED CELL DISTRIBUTION WIDTH 14.5 % (11.5-14.5)
[2018-11-09] MEDS: PANTOPRAZOLE (EC) 40 MG TAB PO ×2 (05:26→17:35)
[2018-11-09] MEDS: HEPARIN 5,000 UNIT/1 ML VIAL SC ×2 (05:27→17:37)
[2018-11-09] MEDS: ACETAMINOPHEN 650MG/20.3ML CUP PO (05:28)
[2018-11-09 05:30] LABS: PHOSPHORUS 4.5 mg/dl (2.5-4.9)
[2018-11-09 05:31] LABS: ANION GAP 5 (5-13); BLOOD UREA NITROGEN 39 mg/dl (7-20); CALCIUM 7.3 mg/dl (8.4-10.2); CARBON DIOXIDE 24 mmol/L (21-31); CHLORIDE 109 mmol/L (97-110); CREATININE 2.18 mg/dl (0.44-1.00); GLUCOSE 80 mg/dl (70-220); POTASSIUM 4.3 mmol/L (3.5-5.1); SODIUM 138 mmol/L (135-144)
[2018-11-09] MEDS: ESCITALOPRAM 10 MG TAB PO (09:05)
[2018-11-09] MEDS: ALLOPURINOL 100 MG TAB PO (09:05)
[2018-11-09] MEDS: GABAPENTIN 300 MG CAP PO ×5 (09:05→21:03)
[2018-11-09] MEDS: ASPIRIN 81 MG TAB PO (09:05)
[2018-11-09] MEDS: MULTIVITAMINS THERAPEUTIC TAB PO (09:05)
[2018-11-09] MEDS: ISOSORBIDE MONONITRATE(SR)30 MG TAB PO (09:06)
[2018-11-09] MEDS: AMLODIPINE 10 MG TAB PO (09:06)
[2018-11-09] MEDS: BUMETANIDE 2 MG in DEXTROSE 5% 17 ML IV ×2 (10:24→22:25)
[2018-11-09] MEDS: DOXAZOSIN 2 MG TAB PO ×2 (10:44→20:58)
[2018-11-09] MEDS: DULOXETINE 20 MG CAP DR PO (13:31)
[2018-11-09] MEDS: CYANOCOBALAMIN 500 MCG TAB PO (14:19)
[2018-11-09] MEDS: CYANOCOBALAMIN 1000 MCG INJ IM (14:19)
[2018-11-09 16:09] LABS: RAPID PLASMA REAGIN NONREACTIVE (NR)
[2018-11-09] MEDS: ATORVASTATIN 10 MG TAB PO (20:57)
[2018-11-09] MEDS: CEFTRIAXONE 1 GM/NS 50 ML IVPB (20:58)
[2018-11-10 05:20] LABS: ADD MAN DIFF? NO
[2018-11-10 05:30] LABS: BASOPHILS % 0.2 % (0.0-2.0); EOSINOPHILS # 0.2 10^3/ul (0.0-0.5); EOSINOPHILS % 3.3 % (0.0-7.0); HEMATOCRIT 22.5 % (37.0-47.0); HEMOGLOBIN 7.3 g/dl (12.0-16.0); LYMPHOCYTES # 1.5 10^3/ul (0.8-2.9); LYMPHOCYTES % 30.2 % (15.0-51.0); MEAN CORPUSCULAR HEMOGLOBIN 34.3 pg (29.0-33.0); MEAN CORPUSCULAR HGB CONC 32.4 g/dl (32.0-37.0); MEAN CORPUSCULAR VOLUME 105.6 fl (82.0-101.0); MEAN PLATELET VOLUME 9.6 fl (7.4-10.4); MONOCYTE # 0.5 10^3/ul (0.3-0.9); MONOCYTES % 10.3 % (0.0-11.0); NEUTROPHIL # 2.7 10^3/ul (1.6-7.5); NEUTROPHILS % 55.8 % (39.0-77.0); PLATELET COUNT 198 10^3/UL (140-415); RED BLOOD COUNT 2.13 10^6/ul (4.20-5.40); RED CELL DISTRIBUTION WIDTH 14.5 % (11.5-14.5)
[2018-11-10 05:30] LABS: WHITE BLOOD COUNT 4.9 10^3/ul (4.8-10.8)
[2018-11-10] MEDS: PANTOPRAZOLE (EC) 40 MG TAB PO ×2 (05:45→18:33)
[2018-11-10 05:51] LABS: ANION GAP 5 (5-13); BLOOD UREA NITROGEN 39 mg/dl (7-20); CALCIUM 7.8 mg/dl (8.4-10.2); CARBON DIOXIDE 26 mmol/L (21-31); CHLORIDE 107 mmol/L (97-110); CREATININE 2.04 mg/dl (0.44-1.00); GLUCOSE 87 mg/dl (70-220); POTASSIUM 4.2 mmol/L (3.5-5.1); SODIUM 138 mmol/L (135-144)
[2018-11-10] MEDS: HEPARIN 5,000 UNIT/1 ML VIAL SC ×2 (05:52→18:46)
[2018-11-10 06:13] LABS: PHOSPHORUS 4.3 mg/dl (2.5-4.9)
[2018-11-10] MEDS: GABAPENTIN 300 MG CAP PO ×6 (09:50→21:16)
[2018-11-10] MEDS: ISOSORBIDE MONONITRATE(SR)30 MG TAB PO (09:56)
[2018-11-10] MEDS: BUMETANIDE 2 MG in DEXTROSE 5% 17 ML IV ×2 (09:56→22:07)
[2018-11-10] MEDS: DOXAZOSIN 2 MG TAB PO ×2 (09:57→21:12)
[2018-11-10] MEDS: MULTIVITAMINS THERAPEUTIC TAB PO (09:57)
[2018-11-10] MEDS: DULOXETINE 20 MG CAP DR PO (09:57)
[2018-11-10] MEDS: ALLOPURINOL 100 MG TAB PO (09:57)
[2018-11-10] MEDS: AMLODIPINE 10 MG TAB PO (09:58)
[2018-11-10] MEDS: ESCITALOPRAM 10 MG TAB PO (09:58)
[2018-11-10] MEDS: ASPIRIN 81 MG TAB PO (09:58)
[2018-11-10] MEDS: LOSARTAN 25 MG TAB PO (10:59)
[2018-11-10] MEDS: NA POLYST SULFON 15 GM/60 ML BTL PO (10:59)
[2018-11-10] MEDS ORDERED: FLUDROCORTISONE 0.1 MG TAB PO (11:00)
[2018-11-10] MEDS: ATORVASTATIN 10 MG TAB PO (21:12)
[2018-11-10] MEDS: CEFTRIAXONE 1 GM/NS 50 ML IVPB (21:13)
[2018-11-11] MEDS: PANTOPRAZOLE (EC) 40 MG TAB PO ×2 (05:57→18:24)
[2018-11-11] MEDS: HEPARIN 5,000 UNIT/1 ML VIAL SC ×2 (06:02→18:24)
[2018-11-11 06:12] LABS: ANION GAP 5 (5-13); BLOOD UREA NITROGEN 38 mg/dl (7-20); CALCIUM 7.7 mg/dl (8.4-10.2); CARBON DIOXIDE 28 mmol/L (21-31); CHLORIDE 104 mmol/L (97-110); CREATININE 2.05 mg/dl (0.44-1.00); GLUCOSE 82 mg/dl (70-220); POTASSIUM 3.9 mmol/L (3.5-5.1); SODIUM 137 mmol/L (135-144)
[2018-11-11] MEDS: DULOXETINE 20 MG CAP DR PO (08:43)
[2018-11-11] MEDS: ISOSORBIDE MONONITRATE(SR)30 MG TAB PO (08:43)
[2018-11-11] MEDS: ESCITALOPRAM 10 MG TAB PO (08:43)
[2018-11-11] MEDS: AMLODIPINE 10 MG TAB PO (08:43)
[2018-11-11] MEDS: BUMETANIDE 2 MG in DEXTROSE 5% 17 ML IV ×2 (08:43→21:14)
[2018-11-11] MEDS: ASPIRIN 81 MG TAB PO (08:44)
[2018-11-11] MEDS: DOXAZOSIN 2 MG TAB PO ×2 (08:44→21:17)
[2018-11-11] MEDS: GABAPENTIN 300 MG CAP PO ×3 (08:44→21:17)
[2018-11-11] MEDS: MULTIVITAMINS THERAPEUTIC TAB PO (08:44)
[2018-11-11] MEDS: ALLOPURINOL 100 MG TAB PO (08:44)
[2018-11-11] MEDS: HYDROCODONE/APAP (5/325) TAB PO (09:03)
[2018-11-11] MEDS: NA POLYST SULFON 15 GM/60 ML BTL PO (11:13)
[2018-11-11] MEDS: LOSARTAN 25 MG TAB PO (12:36)
[2018-11-11] MEDS: ATORVASTATIN 10 MG TAB PO (21:16)
[2018-11-11] MEDS: CEFTRIAXONE 1 GM/NS 50 ML IVPB (21:17)
[2018-11-12] MEDS: PANTOPRAZOLE (EC) 40 MG TAB PO ×2 (05:26→18:05)
[2018-11-12] MEDS: HEPARIN 5,000 UNIT/1 ML VIAL SC ×2 (06:02→18:54)
[2018-11-12 06:19] LABS: ADD MAN DIFF? NO
[2018-11-12 06:24] LABS: BASOPHILS % 0.5 % (0.0-2.0); EOSINOPHILS # 0.2 10^3/ul (0.0-0.5); EOSINOPHILS % 2.7 % (0.0-7.0); HEMATOCRIT 24.2 % (37.0-47.0); HEMOGLOBIN 7.8 g/dl (12.0-16.0); LYMPHOCYTES # 1.9 10^3/ul (0.8-2.9); LYMPHOCYTES % 34.3 % (15.0-51.0); MEAN CORPUSCULAR HEMOGLOBIN 34.7 pg (29.0-33.0); MEAN CORPUSCULAR HGB CONC 32.2 g/dl (32.0-37.0); MEAN CORPUSCULAR VOLUME 107.6 fl (82.0-101.0); MEAN PLATELET VOLUME 9.4 fl (7.4-10.4); MONOCYTE # 0.6 10^3/ul (0.3-0.9); MONOCYTES % 10.9 % (0.0-11.0); NEUTROPHIL # 2.8 10^3/ul (1.6-7.5); NEUTROPHILS % 51.2 % (39.0-77.0); PLATELET COUNT 200 10^3/UL (140-415); RED BLOOD COUNT 2.25 10^6/ul (4.20-5.40); RED CELL DISTRIBUTION WIDTH 13.9 % (11.5-14.5)
[2018-11-12 06:24] LABS: WHITE BLOOD COUNT 5.5 10^3/ul (4.8-10.8)
[2018-11-12 06:56] LABS: ANION GAP 8 (5-13); BLOOD UREA NITROGEN 41 mg/dl (7-20); CALCIUM 7.9 mg/dl (8.4-10.2); CARBON DIOXIDE 28 mmol/L (21-31); CHLORIDE 102 mmol/L (97-110); CREATININE 2.25 mg/dl (0.44-1.00); GLUCOSE 88 mg/dl (70-220); POTASSIUM 3.8 mmol/L (3.5-5.1); SODIUM 138 mmol/L (135-144)
[2018-11-12] MEDS: ISOSORBIDE MONONITRATE(SR)30 MG TAB PO (09:57)
[2018-11-12] MEDS: MULTIVITAMINS THERAPEUTIC TAB PO (09:57)
[2018-11-12] MEDS: ALLOPURINOL 100 MG TAB PO (09:57)
[2018-11-12] MEDS: ESCITALOPRAM 10 MG TAB PO (09:57)
[2018-11-12] MEDS: LOSARTAN 25 MG TAB PO (09:58)
[2018-11-12] MEDS: DULOXETINE 20 MG CAP DR PO (09:58)
[2018-11-12] MEDS: ASPIRIN 81 MG TAB PO (09:58)
[2018-11-12] MEDS: GABAPENTIN 300 MG CAP PO ×3 (09:58→20:52)
[2018-11-12] MEDS: HYDROCODONE/APAP (5/325) TAB PO (09:59)
[2018-11-12] MEDS: AMLODIPINE 10 MG TAB PO (09:59)
[2018-11-12] MEDS: DOXAZOSIN 2 MG TAB PO ×2 (09:59→20:53)
[2018-11-12] MEDS: BUMETANIDE 2 MG in DEXTROSE 5% 17 ML IV ×2 (09:59→20:51)
[2018-11-12 10:36] LABS: IRON 38 ug/dl (35-150)
[2018-11-12 10:48] LABS: % IRON SATURATION 21 % SAT (22-52); TOTAL IRON BINDING CAPACITY 185 ug/dl (241-421)
[2018-11-12] MEDS: NA POLYST SULFON 15 GM/60 ML BTL PO (13:30)
[2018-11-12] MEDS: SOD FERRIC GLUC COMPLX 125 MG in SOD CHLORIDE 0.9% 100 ML IVPB (13:35)
[2018-11-12] MEDS: FERROUS SULFATE (EC) 325 MG TAB PO ×2 (13:37→20:52)
[2018-11-12] MEDS: EPOETIN ALFA-EPBX (NON-ESRD 10,000 UNIT/ML VIAL SC (13:37)
[2018-11-12] MEDS: MAGNESIUM SULFATE 3 GM in DEXTROSE 5% 100 ML IVPB (18:05)
[2018-11-12] MEDS: CEFTRIAXONE 1 GM/NS 50 ML IVPB (20:51)
[2018-11-12] MEDS: ATORVASTATIN 10 MG TAB PO (20:52)
[2018-11-13 05:18] LABS: ADD MAN DIFF? NO
[2018-11-13 05:22] LABS: BASOPHILS % 0.4 % (0.0-2.0); EOSINOPHILS # 0.1 10^3/ul (0.0-0.5); EOSINOPHILS % 2.5 % (0.0-7.0); HEMATOCRIT 22.9 % (37.0-47.0); HEMOGLOBIN 7.3 g/dl (12.0-16.0); LYMPHOCYTES # 1.5 10^3/ul (0.8-2.9); LYMPHOCYTES % 31.1 % (15.0-51.0); MEAN CORPUSCULAR HEMOGLOBIN 34.3 pg (29.0-33.0); MEAN CORPUSCULAR HGB CONC 31.9 g/dl (32.0-37.0); MEAN CORPUSCULAR VOLUME 107.5 fl (82.0-101.0); MEAN PLATELET VOLUME 9.5 fl (7.4-10.4); MONOCYTE # 0.6 10^3/ul (0.3-0.9); MONOCYTES % 12.9 % (0.0-11.0); NEUTROPHIL # 2.6 10^3/ul (1.6-7.5); NEUTROPHILS % 52.7 % (39.0-77.0); PLATELET COUNT 198 10^3/UL (140-415); RED BLOOD COUNT 2.13 10^6/ul (4.20-5.40); RED CELL DISTRIBUTION WIDTH 13.7 % (11.5-14.5)
[2018-11-13 05:22] LABS: WHITE BLOOD COUNT 4.9 10^3/ul (4.8-10.8)
[2018-11-13] MEDS: BUMETANIDE 1 MG INJ IV (05:32)
[2018-11-13] MEDS: PANTOPRAZOLE (EC) 40 MG TAB PO (05:32)
[2018-11-13 05:39] LABS: ANION GAP 7 (5-13); BLOOD UREA NITROGEN 47 mg/dl (7-20); CALCIUM 8.1 mg/dl (8.4-10.2); CARBON DIOXIDE 29 mmol/L (21-31); CHLORIDE 101 mmol/L (97-110); GLUCOSE 83 mg/dl (70-220); POTASSIUM 3.6 mmol/L (3.5-5.1); SODIUM 137 mmol/L (135-144)
[2018-11-13] MEDS: HEPARIN 5,000 UNIT/1 ML VIAL SC ×2 (05:41→18:20)
[2018-11-13] MEDS: FERROUS SULFATE (EC) 325 MG TAB PO ×2 (08:05→13:08)
[2018-11-13] MEDS: ASPIRIN 81 MG TAB PO (08:05)
[2018-11-13] MEDS: MAGNESIUM SULFATE 1 GM/D5W 100 ML IVPB (08:05)
[2018-11-13] MEDS: DULOXETINE 20 MG CAP DR PO (08:05)
[2018-11-13] MEDS: MULTIVITAMINS THERAPEUTIC TAB PO (08:06)
[2018-11-13] MEDS: ESCITALOPRAM 10 MG TAB PO (08:06)
[2018-11-13] MEDS: GABAPENTIN 300 MG CAP PO ×3 (08:06→20:55)
[2018-11-13] MEDS: ALLOPURINOL 100 MG TAB PO (08:06)
[2018-11-13] MEDS: AMLODIPINE 10 MG TAB PO (08:07)
[2018-11-13] MEDS: LOSARTAN 25 MG TAB PO (08:07)
[2018-11-13] MEDS: DOXAZOSIN 2 MG TAB PO ×2 (08:07→20:55)
[2018-11-13] MEDS: ISOSORBIDE MONONITRATE(SR)30 MG TAB PO (08:07)
[2018-11-13] MEDS: HYDROCODONE/APAP (5/325) TAB PO (10:49)
[2018-11-13] MEDS: SOD FERRIC GLUC COMPLX 125 MG in SOD CHLORIDE 0.9% 100 ML IVPB (13:09)
[2018-11-13] MEDS: CEFTRIAXONE 1 GM/NS 50 ML IVPB (20:54)
[2018-11-13] MEDS: ATORVASTATIN 10 MG TAB PO (20:55)
[2018-11-14] MEDS: BUMETANIDE 1 MG INJ IV (06:00)
[2018-11-14] MEDS: PANTOPRAZOLE (EC) 40 MG TAB PO (06:00)
[2018-11-14] MEDS: HEPARIN 5,000 UNIT/1 ML VIAL SC ×2 (06:01→17:50)
[2018-11-14 06:15] LABS: ADD MAN DIFF? NO
[2018-11-14 06:24] LABS: BASOPHILS % 0.5 % (0.0-2.0); EOSINOPHILS # 0.2 10^3/ul (0.0-0.5); HEMATOCRIT 23.5 % (37.0-47.0); HEMOGLOBIN 7.6 g/dl (12.0-16.0); LYMPHOCYTES # 1.8 10^3/ul (0.8-2.9); MEAN CORPUSCULAR HEMOGLOBIN 34.5 pg (29.0-33.0); MEAN CORPUSCULAR HGB CONC 32.3 g/dl (32.0-37.0); MEAN CORPUSCULAR VOLUME 106.8 fl (82.0-101.0); MEAN PLATELET VOLUME 9.9 fl (7.4-10.4); MONOCYTE # 0.6 10^3/ul (0.3-0.9); MONOCYTES % 11.3 % (0.0-11.0); NEUTROPHILS % 53.8 % (39.0-77.0); PLATELET COUNT 201 10^3/UL (140-415); RED CELL DISTRIBUTION WIDTH 13.6 % (11.5-14.5)
[2018-11-14 06:24] LABS: WHITE BLOOD COUNT 5.7 10^3/ul (4.8-10.8)
[2018-11-14 06:51] LABS: ANION GAP 6 (5-13); BLOOD UREA NITROGEN 46 mg/dl (7-20); CALCIUM 8.2 mg/dl (8.4-10.2); CARBON DIOXIDE 28 mmol/L (21-31); CHLORIDE 102 mmol/L (97-110); CREATININE 2.25 mg/dl (0.44-1.00); GLUCOSE 81 mg/dl (70-220); MAGNESIUM 2.8 mg/dl (1.7-2.5); PHOSPHORUS 5.4 mg/dl (2.5-4.9); POTASSIUM 3.6 mmol/L (3.5-5.1); SODIUM 136 mmol/L (135-144)
[2018-11-14] MEDS: ASPIRIN 81 MG TAB PO (09:06)
[2018-11-14] MEDS: ISOSORBIDE MONONITRATE(SR)30 MG TAB PO (09:06)
[2018-11-14] MEDS: DOXAZOSIN 2 MG TAB PO ×2 (09:07→20:31)
[2018-11-14] MEDS: CHOLECALCIFEROL 1,000 UNIT TAB PO (09:07)
[2018-11-14] MEDS: ESCITALOPRAM 10 MG TAB PO (09:07)
[2018-11-14] MEDS: MULTIVITAMINS THERAPEUTIC TAB PO (09:07)
[2018-11-14] MEDS: AMLODIPINE 10 MG TAB PO (09:08)
[2018-11-14] MEDS: ALLOPURINOL 100 MG TAB PO (09:08)
[2018-11-14] MEDS: GABAPENTIN 300 MG CAP PO ×3 (09:08→20:31)
[2018-11-14] MEDS: LOSARTAN 25 MG TAB PO (09:08)
[2018-11-14] MEDS: SOD FERRIC GLUC COMPLX 125 MG in SOD CHLORIDE 0.9% 100 ML IVPB (13:06)
[2018-11-14] MEDS: ALBUTEROL/IPRATROPIUM (NEB) 3 ML AMP HHN ×2 (16:10→19:32)
[2018-11-14] MEDS: BUMETANIDE 1 MG TAB PO (17:49)
[2018-11-14] MEDS: ATORVASTATIN 10 MG TAB PO (20:31)
== END 2018-11-14 21:00 | DRG 291 ==
LOC: 6WM 11-09 07:36 → PP2 11-14 00:45 → ICU 22:31 → E/R 21:42
DX: I13.0 Hypertensive heart and chronic kidney disease with heart failure and stage 1 through stage 4 chronic kidney disease, or unspecified chronic kidney disease (principal); I50.33 Acute on chronic diastolic (congestive) heart failure; N17.9 Acute kidney failure, unspecified; N39.0 Urinary tract infection, site not specified; N18.4 Chronic kidney disease, stage 4 (severe); E87.2 Acidosis; E87.5 Hyperkalemia; I16.0 Hypertensive urgency; D63.1 Anemia in chronic kidney disease; R10.2 Pelvic and perineal pain; G51.0 Bell's palsy; F32.9 Major depressive disorder, single episode, unspecified; F41.9 Anxiety disorder, unspecified; E11.22 Type 2 diabetes mellitus with diabetic chronic kidney disease; E11.21 Type 2 diabetes mellitus with diabetic nephropathy; D50.8 Other iron deficiency anemias; B96.20 Unspecified Escherichia coli [E. coli] as the cause of diseases classified elsewhere; M25.572 Pain in left ankle and joints of left foot; I25.5 Ischemic cardiomyopathy; I07.1 Rheumatic tricuspid insufficiency; I27.20 Pulmonary hypertension, unspecified; E55.9 Vitamin D deficiency, unspecified; M10.9 Gout, unspecified
CPT/HCPCS: 36415; 70450; 71045; 72170; 73630-LT; 76775; 80048; 80053; 80061; 81001; 82306; 82550; 82553; 82607; 82746; 82962; 83036; 83540; 83690; 83735; 83880; 83970; 84100; 84132; 84300; 84443; 84484; 85025; 85610; 86592; 87081; 87086; 93005; 93306; 94640; 94644; 94664; 96361; 96374; 97110; 97161; 97530; 99285-25